=== PATIENT | male | born 1935 | race African-American/Black ===

== ENCOUNTER 2017-06-20 19:50 | Inpatient (IN) | payer MEDICARE ==
[2017-06-20] MEDS ORDERED: Lorazepam 2 MG/ML VIAL ONE (20:21)
[2017-06-20] MEDS ORDERED: Acetaminophen 325 MG Suppository ONE (21:25)
[2017-06-20] MEDS ORDERED: Acetaminophen 500 MG TAB ONE (21:25)
[2017-06-20] MEDS ORDERED: Sodium Chloride 0.9% 1,000 ML IV SCH (23:21)
[2017-06-21] MEDS ORDERED: Diazepam 5 MG TAB PO PRN (02:56)
[2017-06-21] MEDS ORDERED: Ondansetron HCl/PF 4 MG/2 ML Vial IVP PRN (03:02)
[2017-06-21] MEDS: Sodium Chloride 0.9% 1,000 ML IV SCH ×3 (03:12→21:31)
[2017-06-21] MEDS ORDERED: Dextrose 5% in Water 1,000 ML IV PRN (03:48)
[2017-06-21] MEDS ORDERED: Dextrose 50% Abboject 50 ML SYRINGE SLOW IVP PRN (03:48)
[2017-06-21] MEDS ORDERED: Acetaminophen 650 MG Suppository PR PRN (03:49)
[2017-06-21] MEDS ORDERED: Sodium Chloride 0.9% 500 ML IV SCH (04:00)
[2017-06-21] MEDS: Ampicillin/Sulbactam 1.5 GM in Sodium Chloride 0.9% 100 ML IVPB SCH ×4 (04:25→21:20)
[2017-06-21 04:38] LABS: Anion Gap 12 mmol/L (10-20); BUN (Urea Nitrogen) 13 mg/dL (8.4-25.7); Calc. Creatinine Clearance 71 mL/min (70-130); Carbon Dioxide 26 mmol/L (23-31); Cardiac Risk 3.5 (Less than 4.5); Chloride 102 mmol/L (98-107); Cholesterol 154 mg/dl (< 200 Desired); Estimated GFR-MDRD 90; Glucose 145 mg/dL (83-110); HDL Cholesterol 44 mg/dL (>60 Neg Risk); LDL Cholesterol, Calculated 96 mg/dL; Potassium 3.8 mmol/L (3.5-5.1); Sodium 136 mmol/L (136-145); Triglycerides 70 mg/dL (Less than 150)
[2017-06-21 04:39] LABS: Hemoglobin 13.4 g/dL (14.0-18.0); Lymphocytes 52 % (21-51); MDiff Complete? YES; Mean Corpuscular HGB CONC 32.2 g/dL (32.0-36.0); Mean Corpuscular Hemoglobin 26.6 pg (27.0-31.0); Mean Corpuscular Volume 82.5 fl (80.0-94.0); Mean Platelet Volume 9.8 fL (7.4-10.4); Monocytes 2 % (0-10); Neutrophil 46 % (42-75); PLT Morphology Comment Appears Adequate; Platelet Count 127 thou/uL (130-400); RBC Distribution Width 13.4 % (11.5-14.5); Red Blood Cell (RBC) Count 5.04 mill/uL (4.70-6.10); White Blood Cell (WBC) Count 11.8 thou/uL (4.8-10.8)
--- NOTE | 2017-06-21 05:17 | HP ---
PRIMARY CARE PHYSICIAN: Alexis Hernandez. CHIEF COMPLAINT: Left-sided weakness. HISTORY OF PRESENT ILLNESS: The patient is an 82-year-old male with past medical history of hyperten iwona, coronary artery disease, who was found to have some left-sided facial droop and left-sided weak ness earlier on the . The patient's also noticed that the patient was very confused. The p bradly was taken to [facility] at that time since he was in the window and his NIH score was 6 , him and his family were offered TPA. The patient's refused TPA, stated that due to the side e ffects, she denied the use of TPA. Patient was then transferred to our facility for further evaluati on. The patient also had a CT of the head at [place], which did not indicate any acute abnormalitie s, only indicated chronic small vessel ischemia. PAST MEDICAL HISTORY: 1. History of diabetes type 2, ID in 1994, status post CABG. 2. Hypertension. 3. Hyperlipidemia. PAST SURGICAL HISTORY: The patient had a bypass 4-vessel in 1994. SOCIAL HISTORY: He drinks socially and smokes cigars per . ALLERGIES: The patient has no known drug allergies. MEDICATIONS: Are as the following: The patient takes aspirin 81 mg daily, Valium 5 mg p.o. p.r.n., glyburide 5 mg p.o. b.i.d., lisinopril 40 mg daily, metformin 500 mg p.o. b.i.d., metoprolol 50 mg b. i.d., Zocor 20 mg daily, terazosin 10 mg at bedtime, tramadol 50 mg p.o. p.r.n. REVIEW OF SYSTEMS: Except for the ones mentioned in the H and P. The following complete review of systems was negative, unless otherwise mentioned in the HPI or below : Constitutional: Weight loss or gain, ability to conduct usual activities. Skin: Rash, itching. Eyes: Double vision, pain. ENT/Mouth: Nose bleeding, neck stiffness, pain, tenderness. Cardiovascular: Palpitations, dyspnea on exertion, orthopnea. Respiratory: Shortness of breath, wheezing, cough, hemoptysis, fever or night sweats. Gastrointestinal: Poor appetite, abdominal pain, heartburn, nausea, vomiting, constipation, or diarr hea. Genitourinary: Urgency, frequency, dysuria, nocturia. Musculoskeletal: Pain, swelling. Neurologic/Psychiatric: Anxiety, depression. Allergy/Immunologic: Skin rash, bleeding tendency. PHYSICAL EXAMINATION: VITAL SIGNS: Temperature of 99.8, heart rate of 116, blood pressure of 188/90, 98% on room air. GENERAL: The patient is awake, alert, oriented x1. CARDIOVASCULAR: The patient is tachycardic, but sinus. No murmurs noted. RESPIRATORY: Clear to auscultation. No rhonchi, wheezes noted. ABDOMEN: Soft, nontender. Bowel sounds are present x2. NEUROLOGIC: Patient does have a left-sided facial droop. He does have some weakness of the left upp er extremity and left lower extremity. Sensation is intact on the right, mildly decreased on the lef t side. Left upper and left lower extremity, patient has mild aphasia also, unable to do cerebellum test on patient. LABORATORY DATA: WBC of 8.6, hemoglobin of 13.5, hematocrit of 41.3, platelets of 119. Chemistries: Sodium of 142, potassium of 3.9, bicarbonate of 25, BUN of 16, creatinine of 0.98. Troponin x1 was negative. We will trend troponins. ASSESSMENT AND PLAN: The patient is a very pleasant 82-year-old male who was admitted to the [facility] for left-sided weakness. 1. Stroke. The patient does have significant left-sided weakness. The patient's refused TPA. Patient currently on tele on stroke unit. Current NIH is 4. We will consult Neurology. We will ge t echocardiogram, carotid ultrasound, MRI brain. We will also check hemoglobin A1c and lipid panel. The patient is on aspirin 81 mg, may need Plavix 75 mg daily. However, the patient currently is n.p .o., needs a swallow evaluation, so we will do aspirin per rectal. Once patient passes swallow evalu ation, I may consider putting patient on Plavix. Also, patient is on pravastatin. 2. Hypertension. Mild slightly elevated blood pressure. We will continue to monitor. We will star t the patient's home medications. 3. Diabetes type 2. We will check Accu-Cheks a.c. and at bedtime and continue to monitor and hold g lyburide and metformin for now.
[2017-06-21 07:02] LABS: Bilirubin Negative (Negative); Blood, Urine Trace (Negative); Clarity CLEAR (Clear); Glucose, Urine (Dipstick) Negative (Negative); Leukocyte Negative (Negative); Nitrite Negative (Negative); Protein, Urine (Dipstick) 100 mg/dL (Neg-Trace); Specific Gravity, Urine 1.018 (1.002-1.036); Urobilinogen 0.2 mg/dL (0.2-1.0)
[2017-06-21 07:03] LABS: Bacteria/HPF None Seen HPF (None Seen); Hyaline Casts/LPF 0-3 HYALINE CAST LPF (0-3 Hyaline); Squamous Epithelial None Seen HPF (0-3); WBC/HPF 0-3 HPF (0-3)
[2017-06-21] MEDS ORDERED: hydrALAZINE 20 MG/ML VIAL SLOW IVP PRN (08:22)
[2017-06-21] MEDS ORDERED: Aspirin 300 MG Suppository PR SCH (09:00)
--- NOTE | 2017-06-21 09:50 | RAD ---
PORTABLE CHEST; Date: 06/21/17 PROVIDED CLINICAL HISTORY: Fever. FINDINGS: No comparisons. The cardiac silhouette appears enlarged. Median sternotomy changes, vascular calcification, and CABG changes are noted. There is no focal consolidation, pleural fluid, or pneumothorax apparent. IMPRESSION: Cardiomegaly without evidence for an acute cardiopulmonary process. POS: [facility]
--- NOTE | 2017-06-21 10:12 | ULT ---
CAROTID ULTRASOUND: Date: 06/21/17 HISTORY: Stroke. COMPARISON: None. TECHNIQUE: Agrawal scale, color flow, Doppler imaging, and spectral waveform analysis performed of the carotid and vertebral arteries. FINDINGS: RIGHT CAROTID: Calcified plaque in the mid right internal carotid artery. Peak systolic velocity of the common carot id artery is 65.2 cm/second. Peak systolic velocity of the internal carotid artery is 44.3 cm/second. Systolic ICA/CCA ratio is 0.68. LEFT CAROTID: No significant atherosclerotic disease. Peak systolic velocity of the common carotid artery is 81.4 c m/second. Peak systolic velocity of the internal carotid artery is 60.4 cm/second. Systolic ICA/CCA r atio is 0.74. Antegrade flow in bilateral vertebral arteries. IMPRESSION: No sonographic evidence of hemodynamically significant stenosis. POS: [facility]
--- NOTE | 2017-06-21 10:57 | CON ---
DATE OF CONSULTATION: 06/21/2017. NEUROLOGY CONSULTATION CONSULTING PHYSICIAN: Hospitalist Service. IMPRESSION: 1. Transient ischemic attack with resolving left-sided weakness. 2. Diabetes. 3. Hypertension. 4. Aspirin failure. PLAN: Add Plavix. HISTORY OF PRESENT ILLNESS: Mr. Muñiz is an 82-year-old man who was brought to [facility] yesterday with complaints of left-sided weakness and slurred speech. The symptoms were fairly mil d and they refused TPA and was transferred here for care. His initial CT scan did not show any acute hemorrhage. His carotid ultrasound does not show any extracranial stenosis. His lab work including a CBC and serum chemistries were unremarkable other than a blood sugar of 145. His vital signs have been stable with an initial fever of 102.1 on admission and mild hypertension with diastolics runnin g between 85 and 89. He denies any past history of stroke or TIA. ALLERGIES: None. MEDICATION LIST: Reviewed. SOCIAL HISTORY: No tobacco or alcohol use. FAMILY HISTORY: Noncontributory. REVIEW OF SYSTEMS: Positive for complaints of mild headache, but no nausea, vomiting, abdominal pain , chest pain or shortness of breath. PHYSICAL EXAMINATION: GENERAL: He is a well-nourished elderly man, in no acute distress. HEENT: Pupils are equal and reactive. Conjunctivae clear. Oropharynx clear. NECK: Supple. EXTREMITIES: No cyanosis or edema. NEUROLOGIC: He is alert and cooperative. His speech is fluent and clear. Cranial nerves II-XII are intact. Motor exam showed symmetric strength. There was no fix or drift. Gait was not tested. No abnormal movements were seen. LABORATORY AND IMAGING STUDIES: Reviewed. SUMMARY: This 82-year-old gentleman presented with transient left-sided weakness suggestive of proba ble small vessel ischemic disease. Given he was on aspirin and reportedly on a statin as well, addin g Plavix would be the appropriate next step. His workup is nearly complete. I would be happy to fol low up with him as an outpatient.
[2017-06-21] MEDS: Lisinopril 20 MG TAB PO SCH (11:35)
[2017-06-21] MEDS: Acetaminophen 325 MG TAB PO PRN (11:35)
[2017-06-21] MEDS: Metoprolol Tartrate 50 MG TAB PO SCH ×2 (11:36→21:20)
--- NOTE | 2017-06-21 11:55 | MRI ---
BRAIN MRI WITHOUT CONTRAST: Date: 06/21/17 HISTORY: Evaluate for CVA. COMPARISON: None. TECHNIQUE: Brain MRI is performed without intravenous Gadolinium administration. Multisequential, multiplanar im aging is performed. FINDINGS: No hemorrhage on the axial gradient echo sequence. No parenchymal mass, mass effect, or midline shift . Brain volume is age-appropriate. Cortical mora-white matter differentiation is preserved. Ventricle s and sulci are patent and symmetric. Central arterial flow-voids are maintained. Absent restricted d iffusion. T2 and FLAIR white matter hyperintensities due to chronic small vessel ischemic changes are noted. Calvarium has a normal marrow signal intensity. Midline brain parenchymal structures are unre markable. Left sphenoid sinus disease is noted. IMPRESSION: Absent restricted diffusion. No acute infarct. POS: [facility]
[2017-06-21] MEDS ORDERED: Clopidogrel Bisulfate 75 MG TAB PO SCH (13:00)
--- NOTE | 2017-06-21 13:51 | PDOC.EVN ---
Event Note - Event Note Event Note: Pt seen and examined. chart reviewed. Care discussed w pt and family at bedside. feels better. denies any specific weakness,speech issues. Carotid Us and MRI brain WNL. neurology recs noted. Add plavix. cont ASA,statin. Ot/PT. OP rehab Vs . yecenia DC next am if stable. Fever yecenia due to stroke.Blood Cx obtained.CXR clear.UA clear. no indication for antibiotics but strarted on empiric ABx for coverage for Aspiration PNA. monitor BP. Add prn hydralazine w parameters for permissive HTN
[2017-06-21] MEDS: Simvastatin 20 MG TAB PO SCH (21:19)
[2017-06-22] MEDS: Ampicillin/Sulbactam 1.5 GM in Sodium Chloride 0.9% 100 ML IVPB SCH (04:14)
[2017-06-22] MEDS ORDERED: traMADol HCl 50 MG TAB PO PRN (09:08)
[2017-06-22] MEDS ORDERED: cloNIDine 0.1 MG TAB PO PRN (09:09)
[2017-06-22] MEDS: Aspirin 325 MG TAB PO SCH (09:19)
[2017-06-22] MEDS: Clopidogrel Bisulfate 75 MG TAB PO SCH (09:20)
[2017-06-22] MEDS: Metoprolol Tartrate 50 MG TAB PO SCH ×2 (09:20→20:25)
[2017-06-22] MEDS: Lisinopril 20 MG TAB PO SCH (09:20)
[2017-06-22] MEDS: Acetaminophen 325 MG TAB PO PRN (09:20)
[2017-06-22] MEDS ORDERED: hydrALAZINE 20 MG/ML VIAL SLOW IVP PRN (11:19)
[2017-06-22] MEDS ORDERED: NIFEdipine XL 30 MG TAB PO SCH (11:30)
--- NOTE | 2017-06-22 14:15 | PDOC.PN ---
- Subjective Encounter Start Date: 06/22/17 Encounter Start Time: 14:13 Subjective: feels much better.walked w PT w/o any deficits -: no speech/swollowing issues. - Objective Resuscitation Status: Resuscitation Status FULL:Full Resuscitation MAR Reviewed: Yes Vital Signs & Weight: Vital Signs (12 hours) Temp Pulse Pulse Pulse Resp BP BP 06/22/17 11:46 65 186/91 H 06/22/17 11:33 98.7 F 65 15 06/22/17 09:20 181/88 H 06/22/17 08:00 97.9 F 97 15 06/22/17 07:40 97.9 F 97 15 06/22/17 07:32 88 77 166/90 H 06/22/17 05:35 06/22/17 04:42 86 194/91 H 06/22/17 04:00 98.2 F 86 16 BP BP BP Pulse Ox 06/22/17 11:46 06/22/17 11:33 186/91 H 98 06/22/17 09:20 06/22/17 08:00 95 06/22/17 07:40 181/88 H 95 06/22/17 07:32 183/92 H 06/22/17 05:35 174/83 H 06/22/17 04:42 06/22/17 04:00 195/94 H 95 Weight Weight 192 lb I&O: 06/21/17 06/22/17 06/23/17 06:59 06:59 06:59 Intake Total 2974 Output Total 850 Balance 2124 Result Diagrams: 06/21/17 04:10 06/21/17 04:11 Additional Labs: Accuchecks 06/22/17 06/22/17 06/21/17 10:34 05:34 21:28 POC Glucose 155 H 128 H 112 H 06/21/17 15:16 POC Glucose 101 Microbiology 06/21/17 04:10 Venous blood - Right Arm Blood Culture - Preliminary Specimen has been received and culture in progress. No Growth to date. 06/21/17 04:10 Venous blood - Left Hand Blood Culture - Preliminary Specimen has been received and culture in progress. No Growth to date. Radiology Reviewed by me: Yes (ECHO-1/3 Diastolic dysfx) Phys Exam - Physical Examination Constitutional: NAD somewhat spaced out HEENT: PERRLA, moist MMs, sclera anicteric, oral pharynx no lesions, 2+ tonsils Neck: no nodes, no JVD, supple, full ROM Respiratory: no wheezing, no rales, no rhonchi, clear to auscultation bilateral Cardiovascular: RRR, no significant murmur, no rub, gallop, irregular Gastrointestinal: soft, non-tender, no distention, positive bowel sounds Musculoskeletal: no edema, pulses present Neurological: non-focal, normal sensation, moves all 4 limbs Psychiatric: normal affect, A&O x 3 Skin: no rash Dx/Plan (1) TIA (transient ischemic attack) Status: Acute (2) Uncontrolled hypertension Code(s): I10 - ESSENTIAL (PRIMARY) HYPERTENSION Status: Acute (3) CAD (coronary artery disease) Code(s): I25.10 - ATHSCL HEART DISEASE OF [place] CORONARY ARTERY W/O ANG PCTRS Status: Chronic (4) HTN (hypertension) Code(s): I10 - ESSENTIAL (PRIMARY) HYPERTENSION Status: Chronic (5) DM2 (diabetes mellitus, type 2) Status: Chronic - Plan PT/OT, 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 add procardia,prn meds.monitor. -: HH on DC as he is having some balance issues when walking -: DC in am if BP improves * . Review of Systems - Review of Systems Constitutional: negative: fever, chills, sweats, weakness, malaise, other Eyes: negative: Pain, Vision Change, Conjunctivae Inflammation, Eyelid Inflammation, Redness, Other ENT: negative: Ear Pain, Ear Discharge, Nose Pain, Nose Discharge, Nose Congestion, Mouth Pain, Mouth Swelling, Throat Pain, Throat Swelling, Other Respiratory: negative: Cough, Dry, Shortness of Breath, Hemoptysis, SOB with Excertion, Pleuritic Pain, Sputum, Wheezing Cardiovascular: negative: chest pain, palpitations, orthopnea, paroxysmal nocturnal dyspnea, edema, light headedness, other Gastrointestinal: negative: Nausea, Vomiting, Abdominal Pain, Diarrhea, Constipation, Melena, Hematochezia, Other Genitourinary: negative: Dysuria, Frequency, Incontinence, Hematuria, Retention , Other Musculoskeletal: negative: Neck Pain, Shoulder Pain, Arm Pain, Back Pain, Hand Pain, Leg Pain, Foot Pain, Other Skin: negative: Rash, Lesions, Keven, Bruising, Other Neurological: negative: Weakness, Numbness, Incoordination, Change in Speech, Confusion, Seizures, Other - Medications/Allergies Allergies/Adverse Reactions: Allergies Allergy/AdvReac Type Severity Reaction Status Date / Time No Known Allergies Allergy Verified 06/20/17 23:36 Medications: Current Medications Acetaminophen (Tylenol) 650 mg PO Q6H PRN PRN Reason: Headache/Fever or Pain Last Admin: 06/22/17 09:20 Dose: 650 mg Aspirin (Aspirin) 325 mg PO DAILY [facility] Last Admin: 06/22/17 09:19 Dose: 325 mg Clonidine (Catapres) 0.1 mg PO Q4H PRN PRN Reason: SBP>160 Clopidogrel Bisulfate (Plavix) 75 mg PO DAILY [facility] Last Admin: 06/22/17 09:20 Dose: 75 mg Dextrose/Water (Dextrose 50%) 25 gm SLOW IVP PRN PRN PRN Reason: Hypoglycemia Diazepam (Valium) 5 mg PO DAILYPRN PRN PRN Reason: Anxiety Glucagon (Glucagon) 1 mg IM PRN PRN PRN Reason: Hypoglycemia Glyburide (Diabeta) 5 mg PO BID-AC [facility] Hydralazine HCl (Apresoline) 10 mg SLOW IVP Q4H PRN PRN Reason: SBP>170 Dextrose/Water (D5w) 1,000 mls @ 0 mls/hr IV .Q0M PRN; As Directed PRN Reason: Hypoglycemia Lisinopril (Zestril) 40 mg PO DAILY [facility] Last Admin: 06/22/17 09:20 Dose: 40 mg Metformin HCl (Glucophage) 500 mg PO BID-[facility] Metoprolol Tartrate (Lopressor) 50 mg PO BID [facility] Last Admin: 06/22/17 09:20 Dose: 50 mg Nifedipine (Procardia Xl) 30 mg PO DAILY [facility] Ondansetron HCl (Zofran) 4 mg IVP Q6H PRN PRN Reason: Nausea/Vomiting Simvastatin (Zocor) 20 mg PO HS [facility] Last Admin: 06/21/17 21:19 Dose: 20 mg Sodium Chloride (Flush - Normal Saline) 10 ml IVF Q12HR [facility] Last Admin: 06/22/17 09:21 Dose: Not Given Sodium Chloride (Flush - Normal Saline) 10 ml IVF PRN PRN PRN Reason: Saline Flush Terazosin HCl (Hytrin) 10 mg PO HS IZZY Tramadol HCl (Ultram) 50 mg PO Q6H PRN PRN Reason: Moderate to Severe Pain (6-10)
[2017-06-22] MEDS: glyBURIDE 5 MG TAB PO SCH (16:09)
[2017-06-22] MEDS: metFORMIN 500 MG TAB PO SCH (16:09)
[2017-06-22] MEDS: Simvastatin 20 MG TAB PO SCH (20:25)
[2017-06-22] MEDS ORDERED: Terazosin HCl 5 MG CAP PO SCH (21:00)
[2017-06-23] MEDS: metFORMIN 500 MG TAB PO SCH (08:18)
[2017-06-23] MEDS: glyBURIDE 5 MG TAB PO SCH (08:19)
[2017-06-23] MEDS: Aspirin 325 MG TAB PO SCH (08:19)
[2017-06-23] MEDS: Clopidogrel Bisulfate 75 MG TAB PO SCH (08:19)
[2017-06-23] MEDS: Metoprolol Tartrate 50 MG TAB PO SCH (08:19)
[2017-06-23] MEDS: Lisinopril 20 MG TAB PO SCH (08:20)
[2017-06-23] MEDS ORDERED: NIFEdipine XL 30 MG TAB PO SCH (09:00)
[2017-06-23 11:51] VITALS: BP 137/74; TEMP 98.1
--- NOTE | 2017-06-23 14:54 | DIS ---
DATE OF DISCHARGE: 06/23/2017 PRIMARY CARE PHYSICIAN: Alexus Wilson at [facility]. DISCHARGE DISPOSITION: Home with [facility]. DISCHARGE DIAGNOSES: 1. Transient ischemic attacks. 2. Hypertension with hypertensive urgency while in the hospital. 3. History of coronary artery disease. 4. Essential hypertension. 5. Dyslipidemia. 6. Diabetes mellitus type 2. DISCHARGE MEDICATIONS: New medications Zocor has been increased to 40 mg daily from 20 mg daily, nif edipine 30 mg daily, Plavix 75 mg daily. Resume home medications as follows; aspirin 81 mg daily, Va lium 5 mg p.o. p.r.n., metoprolol tartrate 50 mg p.o. b.i.d., Zestril 40 mg daily, metformin 500 mg p .o. b.i.d., glyburide 5 mg p.o. b.i.d., terazosin 10 mg daily, tramadol as needed. PROCEDURES DONE IN THE HOSPITAL: 1. Carotid Doppler ultrasound, which is negative for any hemodynamically significant stenosis. 2. MRI of the brain which does not show any acute infarction. 3. Transthoracic echocardiogram which is negative for any evidence of valvular abnormality. EF of 6 0% to 65%, grade I/III diastolic dysfunction. CONSULTATIONS INHOUSE: Neurology, Dr. Sheldon Adair HISTORY OF PRESENT ILLNESS: Mr. Muñiz is an 82-year-old male who was brought in for complaints of le ft-sided weakness and slurred speech. He was within the time frame of the t-PA, but because his symp toms were minor and they were receding, the family decided to forego the t-PA administration. He und erwent a CT head in the [place] [facility] which was negative for any acute abnormalities. He w as transferred here and admitted to stroke floor for further workup and rule out CVA. Please see adm ission history and physical for further details. HOSPITAL COURSE: The patient underwent stroke workup including carotid Doppler ultrasound, MRI of th e brain and echocardiogram and Neurology consultation. Imaging studies were normal, but because of h is symptoms, it was thought that he most likely has suffered a TIA. His Zocor was increased. He was continued on aspirin and at the recommendation of Neurology, Dr. Adair, Plavix was added to his re gimen. It was started here and tolerated very well. His discharge was somewhat delayed by 1 day because of uncontrolled hypertension. He was continued o n his home medication and Procardia was added which he tolerated very well with excellent results for his blood pressure. As of this morning, he is back to his baseline. He has been evaluated by speech therapist, physical therapist and occupational therapist and has no need for rehab. Home Health has been arranged for id m for prison and for various other things with the help of the case management. He was seen and examined prior to discharge and discharge plan was discussed with the patient and his who v erbalized understanding. PHYSICAL EXAMINATION: VITAL SIGNS: This morning temperature 98.1, pulse of 70, respirations 18, saturating 95% on room air , blood pressure 137/74. GENERAL: No acute distress, sitting up on the side of the bed and walking in the hallways. NEUROLOGICAL: Nonfocal. CHEST: Clear to auscultation bilaterally. CARDIOVASCULAR: Rate and rhythm regular without any murmur, rubs or gallops. LABORATORY DATA: His lipid panel was unremarkable. Hemoglobin A1c 7.0. He will follow up with primary care physician as well as neurologist in the outpatient setting. Total time spent in the discharge of this patient was 33 minutes including [id number] interaction.
== END 2017-06-23 12:35 | disposition home health service (06) | DRG 69 ==
LOC: ERS 19:50 → 2SE 21:40
PROVIDERS: ADMIT Internal Medicine; ATTEND Internal Medicine
DX: G45.9 Transient cerebral ischemic attack, unspecified (principal); E11.9 Type 2 diabetes mellitus without complications; Z95.1 Presence of aortocoronary bypass graft; R47.01 Aphasia; I16.0 Hypertensive urgency; I25.10 Atherosclerotic heart disease of native coronary artery without angina pectoris; I10 Essential (primary) hypertension; E78.5 Hyperlipidemia, unspecified; R47.81 Slurred speech; Z79.82 Long term (current) use of aspirin; R53.1 Weakness; R26.89 Other abnormalities of gait and mobility; R29.703 NIHSS score 3; R29.810 Facial weakness; I25.2 Old myocardial infarction; F17.210 Nicotine dependence, cigarettes, uncomplicated
CPT/HCPCS: 36415; 36416; 70551; 71045; 80048; 80061; 81001; 83036; 84484; 85025; 87040; 93306; 93880; 96374; A4216; G8978-GP-CI; G8979-GP-CI; G8980-GP-CI; G8987-GO-CI; G8988-GO-CI; G8989-GO-CI; G9168-GN-CK; G9169-GN-CI; J0295; J0360; J2060; J7050

== ENCOUNTER 2017-11-20 16:26 | Inpatient (IN) | payer MEDICARE ==
[2017-11-20] MEDS ORDERED: Acetaminophen 325 MG TAB ONE (16:47)
[2017-11-20 18:08] LABS: Troponin I 0.052 ng/mL (< 0.028)
[2017-11-20] MEDS ORDERED: Acetaminophen 500 MG TAB ONE (20:06)
[2017-11-20 21:29] LABS: Troponin I 0.037 ng/mL (< 0.028)
[2017-11-20 23:52] LABS: Troponin I 0.053 ng/mL (< 0.028)
[2017-11-21 00:14] VITALS: BMI 27.8
[2017-11-21] MEDS ORDERED: Diazepam 5 MG TAB PO PRN (01:19)
[2017-11-21] MEDS ORDERED: traMADol HCl 50 MG TAB PO PRN (01:19)
[2017-11-21] MEDS ORDERED: hydrALAZINE 20 MG/ML VIAL SLOW IVP PRN (01:21)
[2017-11-21] MEDS ORDERED: Calcium Carbonate 500 MG ChewTAB PO PRN (01:21)
[2017-11-21] MEDS ORDERED: Senokot 8.6 MG TAB PO PRN (01:21)
[2017-11-21] MEDS ORDERED: Ondansetron HCl/PF 4 MG/2 ML Vial IVP PRN (01:21)
[2017-11-21] MEDS ORDERED: Acetaminophen 325 MG TAB PO PRN (01:21)
[2017-11-21] MEDS ORDERED: Bisacodyl 5 MG TAB PO PRN (01:21)
[2017-11-21 02:47] LABS: Troponin I 0.045 ng/mL (< 0.028)
[2017-11-21 02:51] LABS: Anion Gap 16 mmol/L (10-20); BUN (Urea Nitrogen) 20 mg/dL (8.4-25.7); Calc. Creatinine Clearance 52 mL/min (70-130); Calcium 8.7 mg/dL (7.8-10.44); Carbon Dioxide 23 mmol/L (23-31); Cardiac Risk 3.3 (Less than 4.5); Chloride 103 mmol/L (98-107); Cholesterol 102 mg/dl (< 200 Desired); Estimated GFR-MDRD 74; Glucose 134 mg/dL (83-110); HDL Cholesterol 31 mg/dL (>60 Neg Risk); LDL Cholesterol, Calculated 55 mg/dL; Sodium 139 mmol/L (136-145); Triglycerides 79 mg/dL (Less than 150)
[2017-11-21 03:09] LABS: Band 1 % (5-11); Hemoglobin 12.5 g/dL (14.0-18.0); Hypochromia SLIGHT = 6-15 cells (100X) (0-5/hpf); Lymphocytes 59 % (21-51); MDiff Complete? YES; Mean Corpuscular HGB CONC 33.2 g/dL (32.0-36.0); Mean Corpuscular Hemoglobin 27.9 pg (27.0-31.0); Mean Corpuscular Volume 83.9 fL (78.0-98.0); Neutrophil 40 % (42-75); PLT Morphology Comment Appears Decreased; Platelet Count 111 thou/uL (130-400); RBC Distribution Width 12.4 % (11.5-14.5); Red Blood Cell (RBC) Count 4.47 mill/uL (4.70-6.10); White Blood Cell (WBC) Count 11.9 thou/uL (4.8-10.8)
--- NOTE | 2017-11-21 05:16 | PDOC.EVN ---
Event Note - Event Note Event Note: h&p [id number]
--- NOTE | 2017-11-21 05:50 | HP ---
PRIMARY CARE PHYSICIAN: Uli Schmidt. CHIEF COMPLAINT: Right-sided headache and neck pain. HISTORY OF PRESENT ILLNESS: This is an 82-year-old male with a prior history of NV, type 2 diabetes, CABG x4 vessels, and hypertension who initially presented with a chief complaint of right-sided headache with neck pain. He was initially seen at an outside hospital from [place] and was transferred to our facility due to the fact that on their evaluation, the patient had indeterminate troponin. At the time of my evaluation, the patient denies any headache, denies any vision changes, denies any neck pain and denies any chest pain or palpitations. He in fact is feeling okay and has no complaints whatsoever. REVIEW OF SYSTEMS: As per HPI. Constitutional: Patient denies any fevers, chills, significant weight gain, or loss. HEENT: Negative as per above. Cardiovascular: No chest pain, no dyspnea on exertion. No palpitations. Respiratory: No shortness of breath, cough, congestion, or recent upper respiratory illness. Gastrointestinal: Denies any nausea, vomiting, abdominal pain issues with diarrhea or constipation. Musculoskeletal denying any new myalgias or arthralgias. Genitourinary: No dysuria, changes in urinary quality or quantity. Remainder of the review of systems otherwise negative. PAST MEDICAL HISTORY: As per above, 1. Significant for myocardial infarction, status post CABG x4 vessels in 1994. 2. Type 2 diabetes. 3. Hypertension. 4. Obesity. 5. Anxiety. HOME MEDICATIONS: Per the EMR, the patient's verified list includes aspirin 81 mg p.o. daily, lisinopril 40 mg mg p.o. daily, diazepam 5 mg p.o. p.r.n., tramadol 50 mg p.o. p.r.n., metformin 500 mg p.o. b.i.d., glyburide 5 mg p.o. b.i.d., terazosin 10 mg p.o. at bedtime, simvastatin 40 mg p.o. at bedtime, nifedipine 30 mg p.o. daily, metoprolol tartrate 50 mg p.o. daily. ALLERGIES: No known drug allergies. FAMILY HISTORY: Patient does not report a family history of stroke, although I believe that there is a family history of diabetes. SOCIAL HISTORY: Patient is an active tobacco user. Denies any illicit drug use. He is and has intermittent alcohol use 1-2 times a month. PHYSICAL EXAMINATION: VITAL SIGNS: Temperature 96.9, pulse of 73, respirations 16, satting 93% on room air with blood pressure of 137/45. GENERAL: The patient is awake, alert, conversant, in no acute distress, lying in the hospital bed watching TV. HEENT: Normocephalic, atraumatic. Equal ocular motions are intact. Slightly dry mucous membranes. CARDIOVASCULAR: S1, S2. No murmurs, rubs, or gallops. Pulses 2+ in bilateral upper extremities. RESPIRATORY: Reasonable air movement. No conversational dyspnea. No wheezes, rales, or rhonchi. Grossly clear to auscultation. ABDOMEN: Positive bowel sounds, soft, nontender to palpation. MUSCULOSKELETAL: Moving all 4 extremities independently. IMAGIN. On 11/20/2017, CT of the brain impression "no acute intracranial finding." 2. On 11/20/2017, chest x-ray, impression "mild cardiomegaly with no change since May." LABORATORY DATA AND IMAGING: From earlier this morning, WBC 11.9, hemoglobin 12.5, hematocrit 37.5, platelets 111. Sodium 139, potassium 3.0, chloride 103, bicarbonate 23, BUN 20, creatinine 1.14, glucose 134, calcium 8.7. Troponin were initial 0.052 followed by 0.053, followed by 0.045, triglycerides 79, cholesterol 102, LDL 55, HDL 31. ASSESSMENT AND PLAN: An 82-year-old male presenting with right-sided headache and neck pain that is currently resolved. 1. Right-sided headache and neck pain. I suspect that is likely musculoskeletal with a tension headache. Both of these have been resolved. We will continue to closely monitor patient's neurological status. He is currently already ordered for an MRI and Neurology consultation. 2. Elevated troponin with a known history of coronary artery disease. Question of whether or not this represents demand ischemia. We will also check an echocardiogram. Cardiology consultation has been requested as well secondary to the patients known complicated cardiac history. 3. Hypertension, currently stable. Continue home regimen. 4. Type 2 diabetes, currently stable. Continue home regimen. 5. Hyperlipidemia, currently stable. Continue home regimen. 6. Diet: Cardiac diabetic. 7. Activity: As tolerated. 8. Deep venous thrombosis prophylaxis: With Lovenox. 9. Hypokalemia with a potassium of 3.0, we will replete and recheck along with a serum magnesium level. MTDD
[2017-11-21 06:10] LABS: Magnesium 1.5 mg/dL (1.6-2.6)
[2017-11-21] MEDS: Lisinopril 20 MG TAB PO SCH (08:55)
[2017-11-21] MEDS: glyBURIDE 5 MG TAB PO SCH ×2 (08:55→22:54)
[2017-11-21] MEDS: NIFEdipine XL 30 MG TAB PO SCH (08:55)
[2017-11-21] MEDS: Heparin 5,000 UNITS/ML VIAL SC SCH ×3 (08:56→22:54)
[2017-11-21] MEDS: metFORMIN 500 MG TAB PO SCH ×2 (08:56→22:54)
[2017-11-21] MEDS: Metoprolol Tartrate 50 MG TAB PO SCH (08:56)
[2017-11-21] MEDS: Docusate 100 MG CAP PO SCH ×2 (08:56→22:54)
--- NOTE | 2017-11-21 12:35 | MRI ---
MRI BRAIN WITHOUT CONTRAST: HISTORY: TIA. FINDINGS: Comparison is made with the exam of 06/21/17. Correlation is made with the CT brain from the previous day. No restricted diffusion is seen. Changes of cortical atrophy and chronic small vessel ischemic disea se are redemonstrated. No evidence of infarct, hemorrhage, midline shift, or abnormal extraaxial flu id collections is seen. The ventricular size is stable and the basilar cisterns patent. The visuali zed paranasal sinuses and mastoid air cells are well aerated. IMPRESSION: Stable chronic changes. No evidence of acute intracranial process. POS: [facility]
--- NOTE | 2017-11-21 14:24 | PDOC.PN ---
- Subjective Encounter Start Date: 11/21/17 Encounter Start Time: 13:00 Patient is seen today, alert and oriented. No chest pain. Has elevated tropinins , waiitng on Echo, and cardiology and neurology evalaution. - Objective MAR Reviewed: Yes Vital Signs & Weight: Vital Signs (12 hours) Temp Pulse Resp BP Pulse Ox 11/21/17 11:58 98.2 F 63 16 142/78 H 96 11/21/17 08:55 67 11/21/17 08:00 97.7 F 67 12 176/85 H 94 L 11/21/17 04:00 96.9 F L 73 16 137/85 93 L Weight Weight 167 lb 6 oz I&O: 11/20/17 11/21/17 11/22/17 06:59 06:59 06:59 Intake Total 480 Balance 480 Result Diagrams: 11/21/17 01:51 11/21/17 01:51 Additional Labs: Accuchecks 11/21/17 11/20/17 05:44 23:30 POC Glucose 144 H 129 H Radiology Reviewed by me: Yes Phys Exam - Physical Examination HEENT: PERRLA, moist MMs Neck: no nodes, no JVD Respiratory: no wheezing, no rales Cardiovascular: RRR, no significant murmur Gastrointestinal: soft, non-tender Musculoskeletal: no edema, pulses present Neurological: non-focal, normal sensation Lymphatic: no nodes Dx/Plan (1) TIA (transient ischemic attack) Status: Acute Comment: Severe headache, but no numbnes sor weaknes of arms or legs. MRI neg for stroke. (2) Uncontrolled hypertension Code(s): I10 - ESSENTIAL (PRIMARY) HYPERTENSION Status: Acute Comment: Likely from headache, Continue home meds, Pending Echo. (3) CAD (coronary artery disease) Code(s): I25.10 - ATHSCL HEART DISEASE OF [place] CORONARY ARTERY W/O ANG PCTRS Status: Chronic Comment: contoiniue Aspirin., BB, No chest pain but elevated troponins. Wait for echo. (4) DM2 (diabetes mellitus, type 2) Status: Chronic Comment: Well controlled. Continue SSI. (5) HTN (hypertension) Code(s): I10 - ESSENTIAL (PRIMARY) HYPERTENSION Status: Chronic (6) NSTEMI (non-ST elevated myocardial infarction) Code(s): I21.4 - NON-ST ELEVATION (NSTEMI) MYOCARDIAL INFARCTION Status: Acute Comment: Elevated Trop, wiaintg on cardilogy, mayt get Cath? RADHA smith. 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 Review of Systems - Review of Systems Eyes: negative: Pain, Vision Change, Conjunctivae Inflammation, Eyelid Inflammation, Redness, Other ENT: negative: Ear Pain, Ear Discharge, Nose Pain, Nose Discharge, Nose Congestion, Mouth Pain, Mouth Swelling, Throat Pain, Throat Swelling, Other Respiratory: negative: Cough, Dry, Shortness of Breath, Hemoptysis, SOB with Excertion, Pleuritic Pain, Sputum, Wheezing Cardiovascular: negative: chest pain, palpitations, orthopnea, paroxysmal nocturnal dyspnea, edema, light headedness, other Gastrointestinal: negative: Nausea, Vomiting, Abdominal Pain, Diarrhea, Constipation, Melena, Hematochezia, Other Genitourinary: negative: Dysuria, Frequency, Incontinence, Hematuria, Retention , Other Musculoskeletal: negative: Neck Pain, Shoulder Pain, Arm Pain, Back Pain, Hand Pain, Leg Pain, Foot Pain, Other Skin: negative: Rash, Lesions, Keven, Bruising, Other - Medications/Allergies Allergies/Adverse Reactions: Allergies Allergy/AdvReac Type Severity Reaction Status Date / Time No Known Allergies Allergy Verified 06/20/17 23:36 Medications: Current Medications Acetaminophen (Tylenol) 650 mg PO Q4H PRN PRN Reason: Headache/Fever or Pain Aspirin (Aspirin Chewable) 81 mg PO DAILY [facility] Last Admin: 11/21/17 08:55 Dose: 81 mg Bisacodyl (Dulcolax) 10 mg PO DAILYPRN PRN PRN Reason: Constipation Calcium Carbonate (Tums) 1,000 mg PO Q4H PRN PRN Reason: Heartburn or Indigestion Diazepam (Valium) 5 mg PO DAILYPRN PRN PRN Reason: Anxiety Docusate Sodium (Colace) 100 mg PO BID [facility] Last Admin: 11/21/17 08:56 Dose: 100 mg Glyburide (Diabeta) 5 mg PO BID [facility] Last Admin: 11/21/17 08:55 Dose: 5 mg Heparin Sodium (Porcine) (Heparin) 5,000 units SC TID [facility] Last Admin: 11/21/17 08:56 Dose: 5,000 units Hydralazine HCl (Apresoline) 10 mg SLOW IVP Q4H PRN PRN Reason: BP > 220/110 Lisinopril (Zestril) 40 mg PO DAILY [facility] Last Admin: 11/21/17 08:55 Dose: 40 mg Metformin HCl (Glucophage) 500 mg PO BID [facility] Last Admin: 11/21/17 08:56 Dose: 500 mg Metoprolol Tartrate (Lopressor) 50 mg PO DAILY [facility] Last Admin: 11/21/17 08:56 Dose: 50 mg Nifedipine (Procardia Xl) 30 mg PO DAILY [facility] Last Admin: 11/21/17 08:55 Dose: 30 mg Ondansetron HCl (Zofran) 4 mg IVP Q6H PRN PRN Reason: Nausea/Vomiting Pneumococcal 13-Valent Conj Vacc (Prevnar) 0.5 ml IM .ONCE ONE Stop: 11/22/17 09:01 Senna (Senokot) 2 tab PO HSPRN PRN PRN Reason: Constipation Simvastatin (Zocor) 40 mg PO HS [facility] Sodium Chloride (Flush - Normal Saline) 10 ml IVF PRN PRN PRN Reason: Saline Flush Terazosin HCl (Hytrin) 10 mg PO HS [facility] Tramadol HCl (Ultram) 50 mg PO Q6H PRN PRN Reason: Pain
--- NOTE | 2017-11-21 17:16 | CON ---
DATE OF VISIT: 11/21/2017. FOLLOWUP NEUROLOGIC NOTE CONSULTING PHYSICIAN: Hospitalist Service. Mr. Muñiz presented with complaints of left-sided headache and some left leg pain. He was admitted f or further evaluation and a stroke workup was undertaken. He was seen in May for transient ischemi c attack like symptoms and his workup at that time included unremarkable MRI of the brain, unremarkab le carotid Doppler study and echocardiogram showing an ejection fraction of 65%. He reports the head ache has resolved. He had a repeat MRI this morning which has not been read out, but on my review ap pears normal. His vital signs have been stable. He has been afebrile. He appears to have a nonfoca l exam, do not see any acute neurologic issues. Continue his aspirin and Plavix as previously prescr ibed and he can be discharged home at your discretion.
[2017-11-21] MEDS: Simvastatin 40 MG TAB PO SCH (22:54)
[2017-11-21] MEDS: Terazosin HCl 5 MG CAP PO SCH (22:54)
[2017-11-22 06:03] LABS: Anion Gap 11 mmol/L (10-20); BUN (Urea Nitrogen) 18 mg/dL (8.4-25.7); Calc. Creatinine Clearance 65 mL/min (70-130); Calcium 8.6 mg/dL (7.8-10.44); Carbon Dioxide 27 mmol/L (23-31); Chloride 105 mmol/L (98-107); Estimated GFR-MDRD Greater than 90; Glucose 135 mg/dL (83-110); Potassium 3.3 mmol/L (3.5-5.1); Sodium 140 mmol/L (136-145)
[2017-11-22 06:31] LABS: Eosinophils 1 % (0-10); Hemoglobin 12.4 g/dL (14.0-18.0); Lymphocytes 63 % (21-51); MDiff Complete? YES; Mean Corpuscular HGB CONC 32.6 g/dL (32.0-36.0); Mean Corpuscular Hemoglobin 27.5 pg (27.0-31.0); Mean Corpuscular Volume 84.2 fL (78.0-98.0); Monocytes 1 % (0-10); Neutrophil 35 % (42-75); PLT Morphology Comment Appears Decreased; Platelet Count 96 thou/uL (130-400); RBC Distribution Width 12.5 % (11.5-14.5); Red Blood Cell (RBC) Count 4.51 mill/uL (4.70-6.10); White Blood Cell (WBC) Count 8.5 thou/uL (4.8-10.8)
[2017-11-22] MEDS: NIFEdipine XL 30 MG TAB PO SCH (08:54)
[2017-11-22] MEDS: Lisinopril 20 MG TAB PO SCH (08:54)
[2017-11-22] MEDS: glyBURIDE 5 MG TAB PO SCH ×2 (08:54→20:44)
[2017-11-22] MEDS: Docusate 100 MG CAP PO SCH ×2 (08:54→20:44)
[2017-11-22] MEDS: Heparin 5,000 UNITS/ML VIAL SC SCH ×2 (08:54→15:31)
[2017-11-22] MEDS: Metoprolol Tartrate 50 MG TAB PO SCH (08:55)
[2017-11-22] MEDS: metFORMIN 500 MG TAB PO SCH ×2 (08:55→20:44)
[2017-11-22] MEDS ORDERED: Prevnar 13-Val Conj/PF 0.5 ML SYRINGE IM ONE (09:00)
--- NOTE | 2017-11-22 14:14 | CON ---
DATE OF CONSULTATION: 11/22/2017 HISTORY OF PRESENT ILLNESS: Mr. Baltazar Muñiz is a pleasant 82-year-old black male who is admitted for evaluation of right-sided headache and neck pain. He was found to have very minimally elevated troponin I and Cardiology consultation was requested. In 1994, he underwent CABG x4 at [facility]. He apparently has never had a myocardial infarction in the past. With his headache and neck pain, he has undergone MRI evaluation as well as neurological consult and no specific etiology has been found. He denies any chest pain, shortness of breath, PND, orthopnea, or leg edema. PAST MEDICAL HISTORY: Hypertension, hyperlipidemia, diabetes, obesity, anxiety , coronary artery disease. MEDICATIONS: Aspirin 81 daily, lisinopril 40 mg daily, diazepam 5 mg p.r.n., tramadol 50 p.r.n., metformin 500 b.i.d., glyburide 5 mg b.i.d., terazosin 10 mg at bedtime, simvastatin 40 at bedtime, nifedipine 30 daily, metoprolol 50 daily. ALLERGIES: None. SOCIAL HISTORY: He smoked in the past, but was somewhat evasive about how much he smoked. He apparently stopped in the . He occasionally has alcohol. FAMILY HISTORY: Negative for coronary artery disease. REVIEW OF SYSTEMS: Twelve point review of systems otherwise unremarkable. PHYSICAL EXAMINATION: VITAL SIGNS: 142/86, pulse of 89. HEENT: PERRL. NECK: Supple. CHEST: Clear. CARDIAC: S1, S2 normal, without any S3, S4 or murmurs. Carotid upstrokes normal without bruits. ABDOMEN: Normal bowel sounds without tenderness, organomegaly. EXTREMITIES: Revealed no clubbing, cyanosis or edema. NEUROLOGIC: Grossly intact. LABORATORY: On the monitor, he does have a sinus arrhythmia. EKG revealed normal sinus rhythm with left atrial enlargement, right bundle branch block, possible inferior infarction, nonspecific T-wave changes. Echocardiogram revealed ejection fraction of 50%-55% with evidence of diastolic dysfunction, mild mitral regurgitation and mild tricuspid regurgitation. Hemoglobin 12.4, hematocrit 38.0, white count 8500, platelets 96,000. Sodium 140, potassium 3.3 , chloride 105, carbon dioxide 27, BUN 18, creatinine 0.91. Cholesterol 102, triglycerides 79, HDL 31, LDL 55. Mildly elevated troponin I with the highest of 0.053. IMPRESSION: 1. Headache and neck pain without any specific etiology being found. 2. History of transient ischemic attack in 05/2017 with Plavix being added. 3. Status post coronary artery bypass graft x4 in 1994 at [facility]. 4. Hypertension. 5. Hyperlipidemia, under good control. 6. Diabetes. 7. Former smoker. 8. Probable demand ischemia. PLAN: Patient's troponin I is minimally elevated and I doubt that this is clinically significant without any specific symptoms. However, 23 years after bypass surgery, I think it would be advisable to have him undergo adenosine Cardiolite testing for further evaluation. MICHELLE
--- NOTE | 2017-11-22 14:39 | PDOC.PN ---
- Subjective Encounter Start Date: 11/22/17 Encounter Start Time: 13:00 patient is seen today, alert and oriented. No headache, no chest pain, pt is seen by cardioogy and Scheduled for Nuc Stress test in AM. - Objective MAR Reviewed: Yes Vital Signs & Weight: Vital Signs (12 hours) Temp Pulse Pulse Pulse Pulse Resp BP 11/22/17 11:40 97.5 F L 74 16 11/22/17 11:00 80 78 80 11/22/17 08:54 89 142/86 H 11/22/17 08:11 98.2 F 89 16 11/22/17 07:41 98.2 F 89 16 11/22/17 04:00 98.2 F 74 16 BP BP BP BP Pulse Ox 11/22/17 11:40 119/93 H 99 11/22/17 11:00 174/99 H 160/90 H 119/93 H 11/22/17 08:54 11/22/17 08:11 11/22/17 07:41 142/86 H 96 11/22/17 04:00 101/79 95 Weight Weight 167 lb 6 oz I&O: 11/21/17 11/22/17 11/23/17 06:59 06:59 06:59 Intake Total 480 1240 Output Total 200 Balance 480 1040 Result Diagrams: 11/22/17 05:05 11/22/17 05:05 Additional Labs: Accuchecks 11/22/17 11/22/17 11/21/17 10:52 05:21 21:02 POC Glucose 170 H 125 H 213 H Radiology Reviewed by me: Yes Phys Exam - Physical Examination HEENT: PERRLA, moist MMs Neck: no nodes, no JVD Respiratory: no rales, clear to auscultation bilateral Cardiovascular: RRR, no significant murmur Gastrointestinal: soft, non-tender Musculoskeletal: no edema, pulses present Neurological: non-focal, normal sensation Lymphatic: no nodes Dx/Plan (1) TIA (transient ischemic attack) Status: Acute Comment: Severe headache, but no numbnes sor weaknes of arms or legs. MRI neg for stroke. (2) Uncontrolled hypertension Code(s): I10 - ESSENTIAL (PRIMARY) HYPERTENSION Status: Acute Comment: Likely from headache, Continue home meds, Pending Echo. (3) CAD (coronary artery disease) Code(s): I25.10 - ATHSCL HEART DISEASE OF [place] CORONARY ARTERY W/O ANG PCTRS Status: Chronic Comment: contoiniue Aspirin., BB, No chest pain but elevated troponins. Planned Nuc stress test in Am (4) DM2 (diabetes mellitus, type 2) Status: Chronic Comment: Well controlled. Continue SSI. (5) HTN (hypertension) Code(s): I10 - ESSENTIAL (PRIMARY) HYPERTENSION Status: Chronic Comment: well controlled, Continue with home Meds. (6) NSTEMI (non-ST elevated myocardial infarction) Code(s): I21.4 - NON-ST ELEVATION (NSTEMI) MYOCARDIAL INFARCTION Status: Acute Comment: Elevated Trop, wiaintg on cardilogy, mayt get Cath? RADHA smith. 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 Review of Systems - Review of Systems Constitutional: negative: fever, chills, sweats, weakness, malaise, other Eyes: negative: Pain, Vision Change, Conjunctivae Inflammation, Eyelid Inflammation, Redness, Other ENT: negative: Ear Pain, Ear Discharge, Nose Pain, Nose Discharge, Nose Congestion, Mouth Pain, Mouth Swelling, Throat Pain, Throat Swelling, Other Respiratory: negative: Cough, Dry, Shortness of Breath, Hemoptysis, SOB with Excertion, Pleuritic Pain, Sputum, Wheezing Cardiovascular: negative: chest pain, palpitations, orthopnea, paroxysmal nocturnal dyspnea, edema, light headedness, other Gastrointestinal: negative: Nausea, Vomiting, Abdominal Pain, Diarrhea, Constipation, Melena, Hematochezia, Other Genitourinary: negative: Dysuria, Frequency, Incontinence, Hematuria, Retention , Other Musculoskeletal: negative: Neck Pain, Shoulder Pain, Arm Pain, Back Pain, Hand Pain, Leg Pain, Foot Pain, Other - Medications/Allergies Allergies/Adverse Reactions: Allergies Allergy/AdvReac Type Severity Reaction Status Date / Time No Known Allergies Allergy Verified 06/20/17 23:36 Medications: Current Medications Acetaminophen (Tylenol) 650 mg PO Q4H PRN PRN Reason: Headache/Fever or Pain Last Admin: 11/21/17 15:39 Dose: 650 mg Aspirin (Aspirin Chewable) 81 mg PO DAILY [facility] Last Admin: 11/22/17 08:54 Dose: 81 mg Bisacodyl (Dulcolax) 10 mg PO DAILYPRN PRN PRN Reason: Constipation Calcium Carbonate (Tums) 1,000 mg PO Q4H PRN PRN Reason: Heartburn or Indigestion Diazepam (Valium) 5 mg PO DAILYPRN PRN PRN Reason: Anxiety Docusate Sodium (Colace) 100 mg PO BID [facility] Last Admin: 11/22/17 08:54 Dose: 100 mg Glyburide (Diabeta) 5 mg PO BID [facility] Last Admin: 11/22/17 08:54 Dose: 5 mg Heparin Sodium (Porcine) (Heparin) 5,000 units SC TID [facility] Last Admin: 11/22/17 08:54 Dose: Not Given Hydralazine HCl (Apresoline) 10 mg SLOW IVP Q4H PRN PRN Reason: BP > 220/110 Lisinopril (Zestril) 40 mg PO DAILY [facility] Last Admin: 11/22/17 08:54 Dose: 40 mg Metformin HCl (Glucophage) 500 mg PO BID [facility] Last Admin: 11/22/17 08:55 Dose: 500 mg Metoprolol Tartrate (Lopressor) 50 mg PO DAILY [facility] Last Admin: 11/22/17 08:55 Dose: 50 mg Nifedipine (Procardia Xl) 30 mg PO DAILY [facility] Last Admin: 11/22/17 08:54 Dose: 30 mg Ondansetron HCl (Zofran) 4 mg IVP Q6H PRN PRN Reason: Nausea/Vomiting Senna (Senokot) 2 tab PO HSPRN PRN PRN Reason: Constipation Simvastatin (Zocor) 40 mg PO HS [facility] Last Admin: 11/21/17 22:54 Dose: 40 mg Sodium Chloride (Flush - Normal Saline) 10 ml IVF PRN PRN PRN Reason: Saline Flush Last Admin: 11/22/17 08:55 Dose: 10 ml Terazosin HCl (Hytrin) 10 mg PO [facility] Last Admin: 11/21/17 22:54 Dose: 10 mg Tramadol HCl (Ultram) 50 mg PO Q6H PRN PRN Reason: Pain
[2017-11-22] MEDS: Terazosin HCl 5 MG CAP PO SCH (20:45)
[2017-11-22] MEDS: Simvastatin 40 MG TAB PO SCH (20:45)
[2017-11-23] MEDS: Heparin 5,000 UNITS/ML VIAL SC SCH ×3 (04:34→15:42)
[2017-11-23 05:48] LABS: Anion Gap 12 mmol/L (10-20); BUN (Urea Nitrogen) 17 mg/dL (8.4-25.7); Calc. Creatinine Clearance 60 mL/min (70-130); Calcium 8.8 mg/dL (7.8-10.44); Carbon Dioxide 26 mmol/L (23-31); Chloride 106 mmol/L (98-107); Estimated GFR-MDRD 88; Glucose 84 mg/dL (83-110); Potassium 3.3 mmol/L (3.5-5.1); Sodium 141 mmol/L (136-145)
[2017-11-23 06:26] LABS: Hemoglobin 12.6 g/dL (14.0-18.0); Hypochromia SLIGHT = 6-15 cells (100X) (0-5/hpf); Lymphocytes 52 % (21-51); MDiff Complete? YES; Mean Corpuscular HGB CONC 32.5 g/dL (32.0-36.0); Mean Corpuscular Hemoglobin 27.3 pg (27.0-31.0); Mean Corpuscular Volume 84.1 fL (78.0-98.0); Mean Platelet Volume 10.2 fL (7.4-10.4); Monocytes 5 % (0-10); Neutrophil 43 % (42-75); PLT Morphology Comment Appears Decreased; Platelet Count 99 thou/uL (130-400); RBC Distribution Width 12.3 % (11.5-14.5); Red Blood Cell (RBC) Count 4.62 mill/uL (4.70-6.10); White Blood Cell (WBC) Count 8.7 thou/uL (4.8-10.8)
[2017-11-23] MEDS ORDERED: ADENOSINE 60 MG/20 ML VIAL ONE (08:41)
[2017-11-23] MEDS ORDERED: Potassium Chloride 20 MEQ TAB PO SCH (09:15)
[2017-11-23] MEDS: Lisinopril 20 MG TAB PO SCH (12:34)
[2017-11-23] MEDS: Docusate 100 MG CAP PO SCH (12:34)
[2017-11-23] MEDS: NIFEdipine XL 30 MG TAB PO SCH (12:35)
[2017-11-23] MEDS: glyBURIDE 5 MG TAB PO SCH (12:35)
[2017-11-23] MEDS: Metoprolol Tartrate 50 MG TAB PO SCH (12:35)
[2017-11-23] MEDS: metFORMIN 500 MG TAB PO SCH (12:36)
--- NOTE | 2017-11-23 13:40 | NM ---
MYOCARDIAL PERFUSION STUDY: Date: 11-23-17 History: Elevated troponins. History of coronary artery disease. History of prior CABG. Radiopharmaceuticals: 31.4 mCi Technetium 99M Sestamibi, IV at stress and 27 mCi Technetium 99M Sesta mibi, IV at rest. Medications: 14.1 ml (42.5 mg) Adenosine, IV. FINDINGS: There is absent uptake of radiotracer seen within the inferior wall left ventricular myocardium on justin th the resting and stress acquisitions. No significant reversible defect is identified. The gated sachin ges demonstrate global hypokinesis with absent thickening in the inferior left ventricular wall. Calc ulated left ventricular ejection fraction is diminished at 34%. IMPRESSION: 1. Abnormal myocardial perfusion study with scarring in the inferior left ventricular wall. No revers ible defect is seen to suggest ischemia. 2. Global hypokinesis with absent thickening in the inferior left ventricular wall. 3. Decreased LVEF of 34%. POS: [facility]
[2017-11-23 15:38] VITALS: TEMP 98
[2017-11-23 17:14] VITALS: BP 157/92
--- NOTE | 2017-11-24 04:06 | DIS ---
DATE OF ADMISSION: 11/20/2017 DATE OF DISCHARGE: 11/23/2017 CONDITION AT THE TIME OF DISCHARGE: Stable and improved. PRIMARY CARE PHYSICIAN: Dr. Hernandez at [facility]. DISCHARGE MEDICATIONS: Aspirin 81 mg daily, lisinopril 40 mg daily, diazepam 5 mg p.r.n., tramadol p .r.n., metformin 500 b.i.d., glyburide 5 mg b.i.d., terazosin 10 mg daily, Zocor 40 mg daily, nifedip ine XL 30 mg daily, metoprolol tartrate 50 mg daily. INHOUSE CONSULTATIONS: Cardiology, Dr. Jiang. PROCEDURES IN THE HOSPITAL: 1. Include MRI of the brain which is negative for any acute hemorrhage or infarction. 2. Transthoracic echocardiogram, which shows EF of 50%-55% and diastolic dysfunction. 3. Nuclear medicine stress test, which is negative for any fixed or reversible defect, but EF is est imated different than the echo and shows EF of 34%. He does have global hypokinesis with absent thic kening in the inferior left ventricular wall. Once again, no reversible defect was seen. HISTORY OF PRESENTING ILLNESS: Mr. Muñiz is an 82-year-old male with known history of coronary arter y disease, status post CABG about 30 years ago and diabetes who presented to the hospital with compla ints of right-sided headache and neck pain. CT scan done in the ER was unremarkable and chest x-ray showed mild cardiomegaly. His labs were rather unremarkable upon presentation. He was admitted for further evaluation of his headache. He did have elevated troponin of 0.052, then 0.053, then 0.045. Cardiology was consulted with regard to that as the patient has history of significant coronary anthony ry disease. Please see admission history and physical for further details. HOSPITAL COURSE: The patient underwent workup for stroke and underwent an MRI, which was normal. I did have chronic changes. Neurology was consulted and Dr. Adair saw the patient, he had no new rec ommendations. He recommended continuation of his aspirin and Plavix, but the patient is not on any P lavix as per my discussion with him. With regards to his elevated cardiac enzymes, Dr. Jiang saw the patient for Cardiology. His last cardiac enzyme troponin was 0.045. Echo and stress test results as above. The discrepancy between e jection fraction of echo and stress test was discussed with Dr. Jiang, who was not really worried about this. He reported that the patient can be discharged and follow up in the outpatient setting. Home medications were resumed and he was discharged. He was seen and examined prior to discharge. PHYSICAL EXAMINATION: VITAL SIGNS: Temperature 98, heart rate 79, saturating 97% on room air, respirations 16, blood press ure 157/92. GENERAL: No acute distress, awake, alert, and oriented x3. He is currently asymptomatic. CHEST: Clear to auscultation. HEART: Rate and rhythm is regular. Discharge plan was discussed with the patient and his who verbalized understanding.
--- NOTE | 2017-11-26 12:41 | STRESS ---
Acquisition Time: 2017-11-23 10:44:00 Total Exercise Time: 00:04:00 Test Indications: ELEVATED TROPONINS Medications: Protocol: ADENOSINE Max HR: 111 BPM 81% of Pred: 136 BPM Max BP: 188/080 mmHG Max Work Load: 1.0 METS RESTING ECG: NORMAL SINUS RHYTHM AT 88 BPM WITH COMPLETE RIGHT BUNDLE BRANCH BLOCK SYMPTOMS: NONE NORMAL BP RESPONSE ECTOPY: NONE ECG STESS: NO SIGNIFICANT CHANGES INTERPRETATION: INDETERMINATE ECG/AWAIT NUCLEAR IMAGES FOR DEFINITIVE DIAGNOSIS Confirmed by OBEY DIALLO ELLEN ([id number]) on 11/26/2017 12:40:27 PM Referred By: MD Iris CAPPS Confirmed By:SHAR DIALLO PA-C
--- NOTE | 2017-11-26 13:22 | EKG ---
Test Reason : TIA, ELEVATED TROP Blood Pressure : / mmHG Vent. Rate : 089 BPM Atrial Rate : 089 BPM P-R Int : 114 ms QRS Dur : 124 ms QT Int : 402 ms P-R-T Axes : 022 068 059 degrees QTc Int : 489 ms Normal sinus rhythm Possible Left atrial enlargement Right bundle branch block Inferior infarct , age undetermined T wave abnormality, consider lateral ischemia No STEMI Abnormal ECG Confirmed by WILDA Wang, LINDSEY ([id number]), editorial director MOHAMUD KIRBY ([id number]) on 11/26/2017 1:22:06 PM Referred By: Confirmed By:LINDSEY ASTUDILLO M.D.
== END 2017-11-23 18:31 | disposition home or self-care (01) | DRG 103 ==
LOC: ERS 16:26 → OBSVTOIN 22:28 → 2SE 22:28
PROVIDERS: ADMIT Internal Medicine; ATTEND Internal Medicine
DX: R51 Headache (principal); I24.8 Other forms of acute ischemic heart disease; M54.2 Cervicalgia; E11.9 Type 2 diabetes mellitus without complications; I10 Essential (primary) hypertension; I25.10 Atherosclerotic heart disease of native coronary artery without angina pectoris; E78.5 Hyperlipidemia, unspecified; E87.6 Hypokalemia; I25.2 Old myocardial infarction; Z87.891 Personal history of nicotine dependence; Z79.84 Long term (current) use of oral hypoglycemic drugs; Z79.82 Long term (current) use of aspirin; Z79.899 Other long term (current) drug therapy; Z95.1 Presence of aortocoronary bypass graft
CPT/HCPCS: 36415; 36416; 70551; 78452; 80048; 80061; 83735; 84484; 85025; 93005; 93017; 93306; 94760; 96360; 96361; A9500; G8978-GP-CI; G8979-GP-CI; G9162-GN-CI; G9163-GN-CI; J0153; J0360; J1644

== ENCOUNTER 2018-02-18 18:09 | Inpatient (IN) | payer MEDICARE ==
[2018-02-18] MEDS ORDERED: Ondansetron PF 4 MG/2 ML Vial IVP PRN (18:25)
[2018-02-18] MEDS ORDERED: Labetalol HCl 100 MG/20 ML VIAL SLOW IVP PRN (18:25)
[2018-02-18] MEDS ORDERED: Dextrose 50% Abboject 50 ML SYRINGE SLOW IVP PRN (18:27)
[2018-02-18] MEDS ORDERED: Dextrose 5% in Water 1,000 ML IV PRN (18:27)
[2018-02-18] MEDS ORDERED: Bisacodyl 10 MG SUPP PR PRN (18:28)
[2018-02-18] MEDS ORDERED: Milk Of Magnesia 30 ML UDCUP PO PRN (18:28)
[2018-02-18 19:05] LABS: Bilirubin Negative (Negative); Blood, Urine Moderate (Negative); Clarity CLOUDY (Clear); Glucose, Urine (Dipstick) >=1000 mg/dL (Negative); Leukocyte Negative (Negative); Nitrite Negative (Negative); Protein, Urine (Dipstick) 100 mg/dL (Neg-Trace); Specific Gravity, Urine 1.044 (1.002-1.036); Urobilinogen 0.2 mg/dL (0.2-1.0); pH, Urine 5.5 (5.0-9.0)
[2018-02-18 19:07] LABS: Bacteria/HPF None Seen HPF (None Seen); Hyaline Casts/LPF 0-3 HYALINE CAST LPF (0-3 Hyaline); Pathc Cast-AUWi Flag 0.29 (0-2.49); Squamous Epithelial 0-3 HPF (0-3); WBC/HPF 0-3 HPF (0-3)
[2018-02-18] MEDS ORDERED: niCARdipine 20MG In NaCl 20 MG/200 ML BAG ONE (19:20)
--- NOTE | 2018-02-18 20:23 | HP ---
DATE OF ADMISSION: 02/18/2018 CHIEF COMPLAINT: Right-sided weakness and facial droop. PRIMARY CARE PHYSICIAN: HISTORY OF PRESENTING ILLNESS: Mr. Muñiz is a pleasant 83-year-old male with past medical history of coronary artery disease status post CABG in 1994 as well as diabetes, hypertension, and obesity, who presented to outside emergency room with above-mentioned complaint. History is mainly obtained by d iscussion with the ER physician and record review. The patient is severely altered at this time with mentation and no family is available at bedside yet. Mr. Muñiz was brought into [place] [facility] when he was found in the bathtub by his family fernanda baker. He was apparently nonverbal, and it was noticed that he had right-sided facial droop and was n ot moving his right arm or leg. He immediately got a CT scan in the emergency room in [place] which was unremarkable. His blood pressure was significantly elevated at 210/130 in the ER. He also unde rwent a CT angio which did not show any obvious occlusions. His NIHSS was almost 22. EKG showed sin us tachycardia. He was given multiple rounds of labetalol and Ativan to control his blood pressure a nd eventually was started on nicardipine drip and was airlifted to our emergency room. Here he recei frank TPA as he was still in the window for the same and his blood pressure has improved significantly. At the time of my evaluation, the patient has received almost half of the TPA and some right leg move ment is noticed. He is still not able to move his right arm and remains aphasic with significant rig ht-sided neglect. He is now being admitted to CCU for the post-TPA protocol for most likely acute le ft-sided ischemic infarction. PAST MEDICAL HISTORY: 1. Coronary artery disease, status post CABG x4 vessels in 1994. 2. Diabetes mellitus type 2. 3. Obesity. 4. Hypertension. 5. Anxiety. PAST SURGICAL HISTORY: Coronary artery bypass graft. ALLERGIES: No known medication allergies. HOME MEDICATIONS: Not reconciled as yet. We will get the full list from his family once they are he re. FAMILY HISTORY: Unobtainable. Nothing noted in the records. SOCIAL HISTORY: According to the record review, he is an active smoker. No history of drug or alcoh ol abuse. REVIEW OF SYSTEMS: Unobtainable as the patient remains altered with complete aphasia. LABORATORY DATA: CBC unremarkable. His PT, PTT, and INR are within normal limits. His serum chemis try shows blood sugar of 314, otherwise no electrolyte abnormalities. CT scan of the brain by my review is negative for any hemorrhage. There is questionable hyperdensity in the left sylvian fissure, which may represent a branch of left MCA as per the radiologist. CT an foreign of the [place] with contrast as well as CT angio of the neck is read unremarkable. PHYSICAL EXAMINATION: VITAL SIGNS: Upon presentation to the ER, blood pressure 210/130, which is improved to systolic 140s to diastolic 80s, pulse 120. On presentation, respirations 26, oxygen saturation 98% on room air. GENERAL: The patient is fidgety and keeps his head rotated to the left side. He is not following an y commands and keeps picking on his clothes. Otherwise, in no acute distress. He remains aphasic. HEENT: Mucous membrane is moist. No oropharyngeal exudate or erythema. Right-sided facial droop is noticed. Head appears normocephalic, atraumatic. Pupillary reaction is difficult to ascertain valerie use of the patient's noncooperation. NECK: Supple without any lymphadenopathy, JVD, or bruit. CHEST: Clear to auscultation without any wheezing, rales or rhonchi. Rate and rhythm are regular wi thout any murmur, rubs, or gallops. ABDOMEN: Obese, soft, nontender, nondistended. EXTREMITIES: Free of any cyanosis, clubbing, or edema. NEUROLOGIC: He is moving his right leg better now. He has complete hemiparesis of the right arm. H e is showing signs of right-sided neglect and right facial droop. He is completely aphasic as well. NIH score of 15 at the emergency room on presentation. IMPRESSION AND PLAN: 1. Acute cerebrovascular accident with right-sided hemiparesis and expressive aphasia. He will comp lete the TPA and he will be admitted to CCU post-TPA protocol. We will get Neurology consultation as well as stroke team consultation and get MRI and echocardiogram in the morning. He does not have an y evidence of occlusion on the CT angiogram of the head and neck. He will be started on gentle IV fl uid hydration and we will control his blood pressure with nicardipine drip as needed to keep systolic blood pressure less than 160 post-TPA. Avoid any antiplatelet or anticoagulants in the immediate 24 -hour post-TPA. Frequent neuro checks per the TPA protocol every 1 hour for now. 2. History of coronary artery disease, status post coronary artery bypass graft. We will restart hi s home medications once he is more stable and cleared by speech pathologist for oral swallow. He is unsafe for any oral medication for now. 3. History of diabetes mellitus. We will put him on insulin sliding scale with frequent Accu-Cheks. 4. Deep venous thrombosis and gastrointestinal prophylaxes with sequential compression devices and b .i.d. IV Pepcid for now. 5. Add p.r.n. medication orders and continue supportive care. 6. Code status: Presumed FULL. Will be readdressed once the family is here. DISPOSITION: Mr. Muñiz is currently being admitted in the CCU post-TPA for acute CVA. Estimated olman gth of stay at least 2-3 midnights. Further management will depend upon his clinical course.
[2018-02-18] MEDS: Acetaminophen 650 MG Suppository PR PRN (20:35)
[2018-02-18] MEDS: niCARdipine HCl 25 MG in Sodium Chloride 0.9% 250 ML 240 ML IVPB PRN ×2 (20:36→22:40)
[2018-02-18] MEDS: Famotidine/PF 20 mg/2ml Vial SLOW IVP SCH (20:41)
[2018-02-18] MEDS: Sodium Chloride 0.9% 1,000 ML IV SCH (20:43)
[2018-02-18] MEDS ORDERED: SODIUM CHLORIDE 0.9% IV SCH (21:15)
--- NOTE | 2018-02-18 21:28 | RAD ---
CHEST ONE VIEW: 02/18/18 COMPARISON: 11/20/17. HISTORY: Fever. Evaluate for infection. FINDINGS: Portable upright chest radiograph demonstrates sternotomy wires and mediastinal clips. Normal cardiac silhouette. Pulmonary vessels and hilum are normal. Costophrenic angles are clear. No consolidation or mass. No pneumothorax or osseous abnormalities. IMPRESSION: No acute cardiopulmonary process. POS: [facility]
[2018-02-18] MEDS ORDERED: ZOSYN IVPB PRN (21:47)
[2018-02-18] MEDS ORDERED: VANCOMYCIN IVPB PRN (21:47)
[2018-02-18] MEDS: HumaLOG 300 UNITS/3 ML VIAL SC PRN (21:54)
[2018-02-18] MEDS: Atorvastatin Calcium 40 MG TAB PO SCH (22:11)
[2018-02-18] MEDS: Communication Order-Pharmacy FS SCH (22:11)
[2018-02-19 01:25] LABS: Lactic Acid 1.7 mmol/L (0.5-2.2)
[2018-02-19] MEDS: niCARdipine HCl 25 MG in Sodium Chloride 0.9% 250 ML 240 ML IVPB PRN ×3 (01:31→17:47)
[2018-02-19] MEDS: Sodium Chloride 0.9% 1,000 ML IV SCH ×2 (02:53→14:51)
[2018-02-19] MEDS: HumaLOG 300 UNITS/3 ML VIAL SC PRN ×3 (06:18→17:39)
[2018-02-19] MEDS: Famotidine/PF 20 mg/2ml Vial SLOW IVP SCH ×3 (08:26→21:45)
[2018-02-19] MEDS ORDERED: Prevnar 13-Val Conj/PF 0.5 ML SYRINGE IM ONE (09:00)
--- NOTE | 2018-02-19 12:02 | MRI ---
CT BRAIN WITHOUT CONTRAST: HISTORY: Altered mental status. FINDINGS: Correlation is made with the CT scan from the previous day. FINDINGS: No restricted diffusion is seen. There are foci of T2 prolongation of the periventricular white zoie er consistent with chronic small vessel ischemic disease. Ventricular size is appropriate and the ba silar cisterns are patent. There is mucosal disease in the paranasal sinuses. IMPRESSION: No evidence of acute intracranial process. POS: [facility]
[2018-02-19] MEDS: Acetaminophen 650 MG Suppository PR PRN (13:08)
--- NOTE | 2018-02-19 14:06 | PDOC.PN ---
- Subjective Encounter Start Date: 02/19/18 Encounter Start Time: 14:04 Subjective: remains about the same without any improvement post t-PA -: not able to talk - Objective MAR Reviewed: Yes Vital Signs & Weight: Vital Signs (12 hours) Temp Pulse BP BP Pulse Ox Pulse Ox Pulse Ox 02/19/18 13:00 102.5 F H 02/19/18 12:00 101.1 F H 02/19/18 11:24 130 H 174/96 H 174/89 H 100 100 02/19/18 08:00 98.3 F 02/19/18 07:56 100 02/19/18 03:00 97.9 F Weight Admit Weight 172 lb Weight 172 lb 9.951 oz Most Recent Monitor Data Heart Rate from ECG 112 NIBP 146/80 NIBP BP-Mean 102 Respiration from ECG 21 SpO2 98 I&O: 02/18/18 02/19/18 02/20/18 06:59 06:59 06:59 Intake Total 2563 0 Output Total 2045 1005 Balance 518 -1005 Additional Labs: Accuchecks 02/19/18 02/19/18 02/18/18 12:34 06:17 21:50 POC Glucose 279 H 324 H 334 H Radiology Reviewed by me: Yes (MRI-no acute event) Phys Exam - Physical Examination remains non responsive for verbal/tactile stimulus HEENT: moist MMs forced expiration thru mouth,gurgling in throat Neck: no JVD Respiratory: no wheezing, no rales, no rhonchi, clear to auscultation bilateral Cardiovascular: RRR, no significant murmur Gastrointestinal: soft, non-tender, no distention, positive bowel sounds Musculoskeletal: no edema, pulses present R arm paresis,r hemineglect,expressive aphasia.encephalopathy Dx/Plan (1) Acute encephalopathy Code(s): G93.40 - ENCEPHALOPATHY, UNSPECIFIED Status: Acute (2) Uncontrolled hypertension Code(s): I10 - ESSENTIAL (PRIMARY) HYPERTENSION Status: Acute Comment: remains on Cardene drip (3) Ischemic cerebrovascular accident (CVA) Code(s): I63.9 - CEREBRAL INFARCTION, UNSPECIFIED Status: Acute (4) CAD (coronary artery disease) Code(s): I25.10 - ATHSCL HEART DISEASE OF [place] CORONARY ARTERY W/O ANG PCTRS Status: Chronic Comment: contoiniue Aspirin., BB, No chest pain but elevated troponins. Planned Nuc stress test in Am (5) DM2 (diabetes mellitus, type 2) Status: Chronic Comment: Well controlled. Continue SSI. - Plan PT/OT, incentive spirometry, DVT proph w/SCDs Poor prognosis w no response to t-PA.MRI does not show acute changes -: Care discussed w over phone. 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 * . Review of Systems - Review of Systems Other: can not be obtained due to expressive aphasia and confusion - Medications/Allergies Allergies/Adverse Reactions: Allergies Allergy/AdvReac Type Severity Reaction Status Date / Time No Known Allergies Allergy Verified 06/20/17 23:36 Medications: Current Medications Acetaminophen (Tylenol) 650 mg [place] Q4H PRN PRN Reason: Headache/Fever/Mild Pain (1-3) Last Admin: 02/19/18 13:08 Dose: 650 mg Atorvastatin Calcium (Lipitor) 40 mg PO HS [facility] Last Admin: 02/18/18 22:11 Dose: Not Given Bisacodyl (Dulcolax) 10 mg [place] DAILYPRN PRN PRN Reason: Constipation Dextrose/Water (Dextrose 50%) 25 gm SLOW IVP PRN PRN PRN Reason: Hypoglycemia Famotidine (Pepcid) 20 mg SLOW IVP Q12HR [facility] Last Admin: 02/19/18 08:26 Dose: 20 mg Glucagon (Glucagon) 1 mg IM PRN PRN PRN Reason: Hypoglycemia Hydralazine HCl (Apresoline) 10 mg SLOW IVP Q4H PRN PRN Reason: SBP > 180 and HR < 70 Dextrose/Water (D5w) 1,000 mls @ 0 mls/hr IV .Q0M PRN PRN Reason: Hypoglycemia Nicardipine HCl 25 mg/ Sodium (Chloride) 250 mls @ 0 mls/hr IVPB INF PRN; Protocol PRN Reason: SBP > 180 or DBP > 105 Last Admin: 02/19/18 11:15 Dose: 250 mls Sodium Chloride (Normal Saline 0.9%) 1,000 mls @ 50 mls/hr IV .Q20H [facility] Last Admin: 02/19/18 02:53 Dose: 1,000 mls Vancomycin HCl 750 mg/ Sodium (Chloride) 250 mls @ 250 mls/hr IVPB 2200 IZZ[facility] Insulin Human Lispro (Humalog) 0 units SC .MODERATE SLIDING SC PRN PRN Reason: Moderate Correctional Scale Last Admin: 02/19/18 12:35 Dose: 6 unit Insulin Human Lispro (Humalog) 0 units SC .BEDTIME SLIDING SC PRN PRN Reason: Bedtime Correctional Scale Last Admin: 02/18/18 21:54 Dose: 4 unit Labetalol HCl (Normodyne) 20 mg SLOW IVP Q4H PRN PRN Reason: SBP > 180 and HR >/= 100 Magnesium Hydroxide (Milk Of Magnesium) 30 ml PO BIDPRN PRN PRN Reason: Constipation Miscellaneous Information (Communication Order-Pharmacy) 1 each FS NOW [facility] Stop: 02/19/18 18:29 Last Admin: 02/18/18 22:11 Dose: Not Given Miscellaneous Medication (Pharmacy To Dose) 1 each IVPB PRN PRN PRN Reason: EMPIRIC Ondansetron HCl (Zofran) 4 mg IVP Q6H PRN PRN Reason: Nausea/Vomiting
[2018-02-19] MEDS: Labetalol HCl 100 MG/20 ML VIAL SLOW IVP PRN (17:25)
[2018-02-19] MEDS ORDERED: levETIRAcetam 2,000 MG in Sodium Chloride 0.9% 100 ML IVPB SCH (17:45)
--- NOTE | 2018-02-19 18:13 | CON ---
DATE OF CONSULTATION: 02/19/2018 HISTORY OF PRESENT ILLNESS: Mr. Muñiz is an 83-year-old male who presented with hemiplegia. He was given TPA. Today from talking to the nurses and examining him they tell me he has improved. An MRI today does not show a thrombotic event and brain infarction. He is encephalopathic. He does not open his eyes. He is snoring. Moves his right leg, but he is not moving his right arm. He is aphasic and has his eyes deviated suggesting hemineglect on the right. PAST MEDICAL HISTORY: Remarkable for coronary artery disease, diabetes, hypertension, coronary artery bypass grafting in the past. FAMILY HISTORY: Negative for lung disease. SOCIAL HISTORY: Non contributory. REVIEW OF SYSTEMS: 10 point review of systems completed, not obtainable. PHYSICAL EXAMINATION: VITAL SIGNS: Blood pressure 152/80, heart rate 113, respiratory rate is 25, oximetry is 100%. HEENT: Pupils react. Sclerae is anicteric. NECK: Supple without lymphadenopathy. LUNGS: Clear at this time. He appears to be handling his secretions for now. HEART: Regular rhythm. S1 and S2 are normal. ABDOMEN: Soft and nontender with no guarding. He has a protuberant abdomen. EXTREMITIES: Without clubbing, cyanosis, or edema. NEUROLOGIC: As noted above. LABORATORY DATA: Urinalysis showed 100 mg per deciliter of protein. White count yesterday afternoon 10.7, hemoglobin 13.3 and platelets 110,000. He did not have a repeat CBC today. Electrolytes were normal. Glucose was 314 and hemoglobin A1c was 7. IMPRESSION: Status post TPA with a negative MRI except for chronic ischemic white matter changes, still hemiplegic, aphasic and has an altered mental status. I doubt this is meningitis. I suppose it could be seizure activity contributing with Sheldon's paralysis, but this would seem to be unlikely. Unfortunately, we do not have EEG available on a holiday weekend. We will continue with supportive care. lp might be considered. Neurology has been consulted. This is a 70 minute consult, with greater than 50% of time spent on unit in coordination of care. MICHELLE
--- NOTE | 2018-02-19 19:06 | CON ---
DATE OF CONSULTATION: 02/19/2018 IMPRESSION: The patient appears to have suffered a left middle cerebral artery stroke, although ther e is nothing present on MRI as far as an anatomical correlate. Subclinical seizure activity would be a consideration. PLAN: Monitor clinical course for now. Mr. Muñiz was admitted today after developing expressive aphasia and right-sided weakness. His CT an giogram did not reveal any evidence of intracranial stenosis. He was given TPA and then moved to the unit. He has failed to show any change in his clinical status. On exam, he has a left gaze preference. There is some right facial flattening. The right side appea rs to be flaccid. Plantar response was downgoing on the right. No abnormal movements were seen. Th e patient was nonverbal. Confusing clinical picture given his exam would be fairly typical for an ischemic event, there is not liz showing up on MRI. EEG is not available today. We would suggest we monitor his course for now and see if it clears.
[2018-02-19] MEDS: Atorvastatin Calcium 40 MG TAB PO SCH (21:22)
[2018-02-19] MEDS ORDERED: Vancomycin HCl 750 MG in Sodium Chloride 0.9% 250 ML 250 ML IVPB SCH (22:00)
[2018-02-19] MEDS: Communication Order-Pharmacy FS SCH (23:00)
[2018-02-20] MEDS: Acetaminophen 650 MG Suppository PR PRN ×2 (00:31→07:46)
[2018-02-20] MEDS: HumaLOG 300 UNITS/3 ML VIAL SC PRN ×2 (03:55→18:16)
[2018-02-20] MEDS: Sodium Chloride 0.9% 1,000 ML IV SCH (03:55)
[2018-02-20 04:55] LABS: Anion Gap 16 mmol/L (10-20); BUN (Urea Nitrogen) 12 mg/dL (8.4-25.7); Calc. Creatinine Clearance 61 mL/min (70-130); Calcium 8.3 mg/dL (7.8-10.44); Carbon Dioxide 22 mmol/L (23-31); Chloride 105 mmol/L (98-107); Estimated GFR-MDRD 88; Glucose 229 mg/dL (83-110); Potassium 3.7 mmol/L (3.5-5.1); Sodium 139 mmol/L (136-145)
[2018-02-20 05:53] LABS: Hemoglobin 13.4 g/dL (14.0-18.0); Lymphocytes 52 % (21-51); MDiff Complete? YES; Mean Corpuscular HGB CONC 31.7 g/dL (32.0-36.0); Mean Corpuscular Hemoglobin 26.5 pg (27.0-31.0); Mean Corpuscular Volume 83.5 fL (78.0-98.0); Mean Platelet Volume 10.9 fL (7.4-10.4); Monocytes 5 % (0-10); Neutrophil 41 % (42-75); PLT Morphology Comment Appears Decreased; Platelet Count 104 thou/uL (130-400); RBC Distribution Width 13.2 % (11.5-14.5); Reactive Lymphocytes 2 % (0-10); Red Blood Cell (RBC) Count 5.07 mill/uL (4.70-6.10); White Blood Cell (WBC) Count 13.6 thou/uL (4.8-10.8)
[2018-02-20] MEDS: Aspirin 300 MG Suppository PR SCH (08:47)
[2018-02-20] MEDS: Famotidine/PF 20 mg/2ml Vial SLOW IVP SCH ×2 (08:47→20:41)
[2018-02-20] MEDS ORDERED: cloNIDine 0.1mg/24 Hour PATCH TD SCH (09:00)
--- NOTE | 2018-02-20 10:51 | PRG ---
DATE OF SERVICE: 02/20/2018 SUBJECTIVE: Baltazar Muñiz is more alert. He makes eye contact. He is still hemiplegic. He is still aphasic. He does intermittently follow commands on his left today. OBJECTIVE: VITALS: Oximetry is 96 on room air. He has some purulent discharge from his right naris. Heart rate is 112, blood pressure 160/84. LUNGS: Clear today. His respiratory status has improved dramatically. HEART: Regular rhythm. S1 and S2 are normal. ABDOMEN: Soft and nontender. EXTREMITIES: Without asymmetry or edema. LABORATORY DATA: White count 13.6, hemoglobin 13.4, platelets 104,000. Sodium 139, potassium 3.7, chloride 105, bicarbonate 22, BUN 12, creatinine 0.98, glucose 229. IMPRESSION: Hemiplegia of unclear etiology. He clinically appears to have had a right hemispheric stroke but his brain MRI did not show that. He was started on seizure medication yesterday afternoon by Dr. Adair. It would be nice if we had the EEG but we do not. Consideration for transfer for further care since there is no EEG available might be entertained. MICHELLE
[2018-02-20] MEDS: Labetalol HCl 100 MG/20 ML VIAL SLOW IVP PRN ×2 (10:52→22:10)
--- NOTE | 2018-02-20 11:20 | PRG ---
DATE OF SERVICE: 02/20/2018 SUBJECTIVE: Mr. Muñiz apparently had a fever last night. He got up to 102.5. Vancomycin was empirically started by the Hospitalist. I put a hold on this. Neurology has recommended a lumbar puncture, which I would agree with since he has a very atypical presentation for hemiplegia that had not been explained by structural brain abnormalities. MICHELLE
[2018-02-20] MEDS ORDERED: Lidocaine 1% (PF) 30 ML VIAL ONE (11:24)
--- NOTE | 2018-02-20 13:22 | PDOC.PN ---
- Subjective Encounter Start Date: 02/20/18 Encounter Start Time: 13:21 Subjective: slight improvement only.able to look and turn on right side -: able to focus w eyes and smile when name is called -: R arm paresis perists,encepahlopathy persists - Objective MAR Reviewed: Yes Vital Signs & Weight: Vital Signs (12 hours) Temp Pulse BP Pulse Ox 02/20/18 10:52 103 H 187/102 H 02/20/18 09:00 100 F H 02/20/18 07:52 96 02/20/18 07:42 99 02/20/18 07:00 103 F H 02/20/18 04:00 99.3 F 02/20/18 02:00 101.4 F H Weight Admit Weight 172 lb Weight 174 lb 6.17 oz Most Recent Monitor Data Heart Rate from ECG 103 NIBP 169/96 NIBP BP-Mean 120 Respiration from ECG 25 SpO2 96 I&O: 02/19/18 02/20/18 02/21/18 06:59 06:59 06:59 Intake Total 2563 1620.8 Output Total 2045 2580 320 Balance 518 -959.2 -320 Result Diagrams: 02/20/18 03:50 02/20/18 03:50 Additional Labs: Accuchecks 02/20/18 02/20/18 02/19/18 11:15 03:50 21:40 POC Glucose 207 H 216 H 178 H 02/19/18 17:39 POC Glucose 205 H Microbiology 02/18/18 21:35 Venous blood - Right Arm Blood Culture - Preliminary Specimen has been received and culture in progress. No Growth to date. 02/18/18 21:35 Venous blood - Right Arm Blood Culture - Preliminary NO GROWTH AT 48 HOURS 02/18/18 21:08 Venous blood - Right Arm Blood Culture - Preliminary Specimen has been received and culture in progress. No Growth to date. 02/18/18 21:08 Venous blood - Right Arm Blood Culture - Preliminary NO GROWTH AT 48 HOURS 02/18/18 18:50 Urine tate catheter Urine Culture - Preliminary NO GROWTH AT 24 HOURS Laboratory Tests Phys Exam - Physical Examination Constitutional: NAD able to respond w smile ,turned to right side HEENT: moist MMs, sclera anicteric, oral pharynx no lesions Neck: no nodes, no JVD Respiratory: no wheezing, no rales, no rhonchi Cardiovascular: RRR, no significant murmur Gastrointestinal: soft, non-tender, no distention, positive bowel sounds Musculoskeletal: no edema, pulses present R arm paresis,aphasia,encephalopathy Skin: no rash Dx/Plan (1) Acute encephalopathy Code(s): G93.40 - ENCEPHALOPATHY, UNSPECIFIED Status: Acute (2) Uncontrolled hypertension Code(s): I10 - ESSENTIAL (PRIMARY) HYPERTENSION Status: Acute Comment: kavita of Cardene drip (3) Fever Code(s): R50.9 - FEVER, UNSPECIFIED Status: Acute (4) CAD (coronary artery disease) Code(s): I25.10 - ATHSCL HEART DISEASE OF [place] CORONARY ARTERY W/O ANG PCTRS Status: Chronic Comment: contoiniue Aspirin., BB, No chest pain but elevated troponins. Planned Nuc stress test in Am (5) DM2 (diabetes mellitus, type 2) Status: Chronic Comment: Well controlled. Continue SSI. (6) Ischemic cerebrovascular accident (CVA) Code(s): I63.9 - CEREBRAL INFARCTION, UNSPECIFIED Status: Ruled-out Comment : MRI negative for same - Plan DVT proph w/SCDs MRI negative for CVA.now w fever-? encephalitis -: LP done .will follow the results. -: ABx stopped by PCCM.follow final recs -: BP still uncontrolled. add clonidine patch.cont PRN meds -: ? seizures w status-started on keppra. will continue * .am labs * supportive care.aspiration precautions Review of Systems - Review of Systems Other: can not be obtained due to encephalopathy - Medications/Allergies Allergies/Adverse Reactions: Allergies Allergy/AdvReac Type Severity Reaction Status Date / Time No Known Allergies Allergy Verified 06/20/17 23:36 Medications: Current Medications Acetaminophen (Tylenol) 650 mg [place] Q4H PRN PRN Reason: Headache/Fever/Mild Pain (1-3) Last Admin: 02/20/18 07:46 Dose: 650 mg Aspirin (Aspirin) 300 mg MA DAILY [facility] Last Admin: 02/20/18 08:47 Dose: 300 mg Atorvastatin Calcium (Lipitor) 40 mg PO HS [facility] Last Admin: 02/19/18 21:22 Dose: Not Given Bisacodyl (Dulcolax) 10 mg [place] DAILYPRN PRN PRN Reason: Constipation Clonidine (Sohrbofz-Tax-5 Patch) 0.1 mg TD Q7DAYS [facility] Last Admin: 02/20/18 10:23 Dose: 0.1 mg Dextrose/Water (Dextrose 50%) 25 gm SLOW IVP PRN PRN PRN Reason: Hypoglycemia Famotidine (Pepcid) 20 mg SLOW IVP Q12HR [facility] Last Admin: 02/20/18 08:47 Dose: 20 mg Glucagon (Glucagon) 1 mg IM PRN PRN PRN Reason: Hypoglycemia Hydralazine HCl (Apresoline) 10 mg SLOW IVP Q4H PRN PRN Reason: SBP > 180 and HR < 70 Dextrose/Water (D5w) 1,000 mls @ 0 mls/hr IV .Q0M PRN PRN Reason: Hypoglycemia Nicardipine HCl 25 mg/ Sodium (Chloride) 250 mls @ 0 mls/hr IVPB INF PRN; Protocol PRN Reason: SBP > 180 or DBP > 105 Last Admin: 02/19/18 17:47 Dose: 250 mls Sodium Chloride (Normal Saline 0.9%) 1,000 mls @ 50 mls/hr IV .Q20H [facility] Last Admin: 02/20/18 03:55 Dose: 1,000 mls Levetiracetam 500 mg/ Device 100 mls @ 200 mls/hr IVPB BID [facility] Last Admin: 02/20/18 10:22 Dose: 100 mls Acyclovir Sodium 600 mg/ (Sodium Chloride) 112 mls @ 112 mls/hr IVPB Q8HR [facility] Insulin Human Lispro (Humalog) 0 units SC .MODERATE SLIDING SC PRN PRN Reason: Moderate Correctional Scale Last Admin: 02/20/18 03:55 Dose: 4 unit Insulin Human Lispro (Humalog) 0 units SC .BEDTIME SLIDING SC PRN PRN Reason: Bedtime Correctional Scale Last Admin: 02/18/18 21:54 Dose: 4 unit Labetalol HCl (Normodyne) 20 mg SLOW IVP Q4H PRN PRN Reason: SBP > 180 and HR >/= 100 Last Admin: 02/20/18 10:52 Dose: 20 mg Magnesium Hydroxide (Milk Of Magnesium) 30 ml PO BIDPRN PRN PRN Reason: Constipation Miscellaneous Medication (Pharmacy To Dose) 1 each IVPB PRN PRN PRN Reason: EMPIRIC Ondansetron HCl (Zofran) 4 mg IVP Q6H PRN PRN Reason: Nausea/Vomiting
[2018-02-20 14:13] LABS: CSF, Glucose 120 mg/dl (40-70); CSF, Protein 86 mg/dL (15-40)
[2018-02-20 14:16] LABS: CSF Source CSF; Clarity Clear (Clear); RBC Count - Manual 68 /cumm (None Seen); Tube # 4; WBC/NonHematics Count - Manual 75 /cumm (0-5)
[2018-02-20] MEDS: Acyclovir Sodium 600 MG in Sodium Chloride 0.9% 100 ML IVPB SCH ×2 (14:32→21:33)
[2018-02-20 15:06] LABS: Cell Count Non Hematic 1 %; Lymphocytes 4 %; Segmented Neutrophils 95 %
--- NOTE | 2018-02-20 16:20 | RAD ---
LUMBAR PUNCTURE WITH FLUOROSCOPY: 02/20/18 HISTORY: Fever and stroke-like symptoms. COMPARISON: MRI of brain prior day. FINDINGS: Occ Ther radiograph of the lumbar spine demonstrates moderate facet arthrosis lower lumbar spine. Patient is brought to the Fluoroscopy Suite. The informed consent was already obtained. The patient's back was prepped and draped in the normal sterile fashion. The timeout was performed wi th the patient's wrist band. 2 mL lidocaine was instilled into the superficial and deep soft tissues. At the L2-3 interspace a 22 gauge spinal needle was accessed into the thecal sac. 10 mL of clear CSF was aspirated. The patient t olerated the procedure well without complication. Open pressure: 12 cm of water. IMPRESSION: Normal opening pressure with removal of 10 mL of clear CSF. Patient tolerated the procedure well with out complication. POS: [facility]
[2018-02-20] MEDS: Atorvastatin Calcium 40 MG TAB PO SCH (21:25)
[2018-02-21] MEDS: hydrALAZINE 20 MG/ML VIAL SLOW IVP PRN (00:35)
[2018-02-21] MEDS: Sodium Chloride 0.9% 1,000 ML IV SCH ×2 (02:05→23:18)
[2018-02-21] MEDS: Acyclovir Sodium 600 MG in Sodium Chloride 0.9% 100 ML IVPB SCH ×3 (06:00→23:16)
[2018-02-21] MEDS: HumaLOG 300 UNITS/3 ML VIAL SC PRN ×2 (06:09→11:51)
[2018-02-21] MEDS: Famotidine/PF 20 mg/2ml Vial SLOW IVP SCH ×2 (08:32→21:24)
[2018-02-21] MEDS: Aspirin 300 MG Suppository PR SCH (08:32)
[2018-02-21] MEDS ORDERED: PROPOFOL 200 MG/20 ML VIAL ONE (11:11)
--- NOTE | 2018-02-21 13:20 | PDOC.PN ---
- Subjective Encounter Start Date: 02/21/18 Encounter Start Time: 13:18 Subjective: no changes since yesterday.remains encephalopathic -: no overnight events - Objective MAR Reviewed: Yes Vital Signs & Weight: Vital Signs (12 hours) Temp Pulse Ox 02/21/18 12:00 100.3 F H 02/21/18 08:00 99.5 F 100 02/21/18 06:51 100 02/21/18 04:00 99.0 F Weight Admit Weight 172 lb Weight 172 lb 9.951 oz Most Recent Monitor Data Heart Rate from ECG 94 NIBP 177/92 NIBP BP-Mean 120 Respiration from ECG 21 SpO2 100 I&O: 02/20/18 02/21/18 02/22/18 06:59 06:59 06:59 Intake Total 1620.8 1708 Output Total 2580 2024 315 Balance -959.2 -317 -315 Result Diagrams: 02/20/18 03:50 02/20/18 03:50 Additional Labs: Accuchecks 02/21/18 02/21/18 02/20/18 11:50 06:08 21:49 POC Glucose 220 H 222 H 192 H 02/20/18 18:13 POC Glucose 222 H Microbiology 02/20/18 13:03 Spinal Fluid Gram Stain - Final 02/18/18 18:50 Urine tate catheter Urine Culture - Final NO GROWTH AT 48 HOURS 02/18/18 21:35 Venous blood - Right Arm Blood Culture - Preliminary NO GROWTH AT 48 HOURS 02/18/18 21:08 Venous blood - Right Arm Blood Culture - Preliminary NO GROWTH AT 48 HOURS Laboratory Tests 02/20/18 02/20/18 13:03 13:03 Fluid WBC (Manual) 75 H Fluid RBC (Manual) 68 H Fluid Seg Neutrophil % 95 H* CSF Glucose 120 H CSF Total Protein 86 H Phys Exam - Physical Examination Constitutional: NAD opens eyes and tracks only sometimes.does not follow commands HEENT: PERRLA, moist MMs, sclera anicteric, oral pharynx no lesions Neck: no nodes, no JVD, supple, full ROM Respiratory: no wheezing, no rales, no rhonchi, clear to auscultation bilateral Cardiovascular: RRR, no significant murmur Gastrointestinal: soft, non-tender, no distention, positive bowel sounds Musculoskeletal: no edema, pulses present does not move R arm,aphasia,AMS Skin: no rash Dx/Plan (1) Acute encephalopathy Code(s): G93.40 - ENCEPHALOPATHY, UNSPECIFIED Status: Acute Comment: Suspect Viral encephalitis (2) Uncontrolled hypertension Code(s): I10 - ESSENTIAL (PRIMARY) HYPERTENSION Status: Acute Comment: off of Cardene drip (3) Fever Code(s): R50.9 - FEVER, UNSPECIFIED Status: Acute (4) CAD (coronary artery disease) Code(s): I25.10 - ATHSCL HEART DISEASE OF [place] CORONARY ARTERY W/O ANG PCTRS Status: Chronic Comment: contoiniue Aspirin., BB, No chest pain but elevated troponins. Planned Nuc stress test in Am (5) DM2 (diabetes mellitus, type 2) Status: Chronic Comment: Well controlled. Continue SSI. (6) Ischemic cerebrovascular accident (CVA) Code(s): I63.9 - CEREBRAL INFARCTION, UNSPECIFIED Status: Ruled-out Comment : MRI negative for same - Plan continue antibiotics, PT/OT, DVT proph w/SCDs cont empiric Acyclovir and Keppra for encephalopathy of unclear etiology -: ? Viral encepahlitis w neutrophilic predominant CSF -: cont supportive care. able to protect airways so far -: Increase clnidine patch dose as BP better but still high -: supportive care. ? ID consult. * . Review of Systems - Review of Systems Other: can not be obatined due to encephalopathy - Medications/Allergies Allergies/Adverse Reactions: Allergies Allergy/AdvReac Type Severity Reaction Status Date / Time No Known Allergies Allergy Verified 06/20/17 23:36 Medications: Current Medications Acetaminophen (Tylenol) 650 mg UT Q4H PRN PRN Reason: Headache/Fever/Mild Pain (1-3) Last Admin: 02/20/18 07:46 Dose: 650 mg Aspirin (Aspirin) 300 mg UT DAILY IZZY Last Admin: 02/21/18 08:32 Dose: 300 mg Atorvastatin Calcium (Lipitor) 40 mg PO HS IZZY Last Admin: 02/20/18 21:25 Dose: Not Given Bisacodyl (Dulcolax) 10 mg UT DAILYPRN PRN PRN Reason: Constipation Clonidine (Fhdcdxsy-Sed-5 Patch) 0.1 mg TD Q7DAYS [facility] Last Admin: 02/20/18 10:23 Dose: 0.1 mg Dextrose/Water (Dextrose 50%) 25 gm SLOW IVP PRN PRN PRN Reason: Hypoglycemia Famotidine (Pepcid) 20 mg SLOW IVP Q12HR [facility] Last Admin: 02/21/18 08:32 Dose: 20 mg Glucagon (Glucagon) 1 mg IM PRN PRN PRN Reason: Hypoglycemia Hydralazine HCl (Apresoline) 10 mg SLOW IVP Q4H PRN PRN Reason: SBP > 180 and HR < 70 Last Admin: 02/21/18 00:35 Dose: 10 mg Dextrose/Water (D5w) 1,000 mls @ 0 mls/hr IV .Q0M PRN PRN Reason: Hypoglycemia Sodium Chloride (Normal Saline 0.9%) 1,000 mls @ 50 mls/hr IV .Q20H [facility] Last Admin: 02/21/18 02:05 Dose: 1,000 mls Levetiracetam 500 mg/ Device 100 mls @ 200 mls/hr IVPB BID [facility] Last Admin: 02/21/18 08:32 Dose: 100 mls Acyclovir Sodium 600 mg/ (Sodium Chloride) 112 mls @ 112 mls/hr IVPB Q8HR [facility] Last Admin: 02/21/18 13:03 Dose: 112 mls Insulin Human Lispro (Humalog) 0 units SC .MODERATE SLIDING SC PRN PRN Reason: Moderate Correctional Scale Last Admin: 02/21/18 11:51 Dose: 4 unit Insulin Human Lispro (Humalog) 0 units SC .BEDTIME SLIDING SC PRN PRN Reason: Bedtime Correctional Scale Last Admin: 02/18/18 21:54 Dose: 4 unit Labetalol HCl (Normodyne) 20 mg SLOW IVP Q4H PRN PRN Reason: SBP > 180 and HR >/= 100 Last Admin: 02/20/18 22:10 Dose: 20 mg Magnesium Hydroxide (Milk Of Magnesium) 30 ml PO BIDPRN PRN PRN Reason: Constipation Miscellaneous Medication (Pharmacy To Dose) 1 each IVPB PRN PRN PRN Reason: EMPIRIC Ondansetron HCl (Zofran) 4 mg IVP Q6H PRN PRN Reason: Nausea/Vomiting
[2018-02-21] MEDS ORDERED: cloNIDine 0.2mg/24 Hour PATCH TD SCH (14:00)
--- NOTE | 2018-02-21 15:38 | PRG ---
DATE OF SERVICE: 02/21/2018 SUBJECTIVE: He is attempting to be more verbal. He is still very dysarthric, not moving his right arm. OBJECTIVE: VITAL SIGNS: Blood pressure 177/92, heart rate is 94, respiratory rate is in the 20s. He is protecting his airways. LUNGS: Clear. HEART: Regular rhythm. ABDOMEN: Soft and nontender. EXTREMITIES: Without asymmetry. LABORATORY DATA: No new lab today other than blood glucoses. CSF showed 75 white cells, 68 red cells, 95% segs, 4% lymphocytes. Glucose was 120, protein was 86. IMPRESSION: Encephalitis?. He continues to have right upper extremity paresis and is dysarthric. PLAN: He will remain in the Critical Care Unit. Cultures are negative so far. His Gram stain of the spinal fluid was negative. With a normal Glucose, it is unlikely that he has bacterial process involving his brain. Critical care time is 35 minutes. [facility]
[2018-02-21] MEDS ORDERED: Lorazepam 2 MG/ML VIAL ONE (18:53)
[2018-02-21] MEDS: Midazolam HCl 2 mg/2 ml Vial ONE ×3 (19:17→19:20)
[2018-02-21 19:28] LABS: Base Excess (BEa) -4.3 mEq/L (-2.0 to +3.0); CO2 Tension 30.2 mmHg (35.0-45.0); Calcium, Ionized 1.08 mmol/L (1.12-1.30); Carboxyhemoglobin (COHb) 0.9 gm% (0.0-3.0); Hemoglobin (Hb) 13.5 g/dL (14.0-18.0); O2 Tension (PaO2) 470.2 mmHg (> 60.0); Potassium - ABG Lab 3.07 mmol/L (3.70-5.30); pH, Arterial 7.42 (7.35-7.45)
[2018-02-21] MEDS ORDERED: Propofol 1,000 MG/100 ML VIAL IV ONE (19:28)
[2018-02-21 19:31] LABS: Puncture Site LRAD
--- NOTE | 2018-02-21 20:25 | RAD ---
ONE VIEW CHEST: Comparison: 02-18-18 History: Ventilated patient. Intubation. Respiratory distress. FINDINGS: Endotracheal tube terminates approximately 2.4 cm above the enrique. Nasogastric tube extends beyond t he diaphragm. Distal tip is not seen. Normal cardiac silhouette. The pulmonary vessels are within nor mal limits. Costophrenic angles are clear. No mass. No consolidation. No pneumothorax or osseous abno rmalities. IMPRESSION: Endotracheal tube and nasogastric tube as above. POS: [facility]
[2018-02-21] MEDS ORDERED: fentaNYL Citrate/PF 2,000 MCG in Sodium Chloride 0.9% 60 ML IV SCH (20:29)
[2018-02-21] MEDS ORDERED: DISCONTINUE PREVIOUS NARCOTIC PAIN MEDICATIONS AND BENZODIAZEPINES FS SCH (20:29)
[2018-02-21] MEDS ORDERED: Fentanyl BOLUS 250 ML IVPB PRN (20:29)
[2018-02-21] MEDS ORDERED: Morphine 2 MG/ML SYRINGE SLOW IVP PRN (20:29)
[2018-02-21] MEDS ORDERED: Lorazepam 2 MG/ML VIAL SLOW IVP PRN (20:29)
[2018-02-21] MEDS ORDERED: Propofol BOLUS 1,000 MG/100 ML VIAL IV PRN (20:29)
[2018-02-21] MEDS: Atorvastatin Calcium 40 MG TAB PO SCH (21:24)
[2018-02-21] MEDS ORDERED: levETIRAcetam In NaCl (Iso-Os) 1,000 MG in Premix Bag 1 BAG IVPB SCH (21:45)
--- NOTE | 2018-02-21 22:38 | PRG ---
DATE OF SERVICE: 02/21/2018 SUBJECTIVE: Mr. Blake developed some changes in mental status and exam. This was followed by tonic-clonic generalized seizures. He was given Ativan. I was contacted at the initiation of this event. I recommended intubation, anticipating that he would need Ativan and would have difficulty protecting his airway. This has been done by the emergency room physician. He received long-acting paralytics. I cannot really at this time determine whether or not the seizures have resolved. OBJECTIVE: His pupils are sluggish . He is chemically paralyzed. Remainder of his exam is essentially unchanged. IMPRESSION: Encephalitis now with generalized seizure activity. The difficult situation that we are facing is that we will know whether he has been intermittently seizing on a low-grade level in the entire admission. We do not have EEG capability on a holiday weekend. He really truly should be transferred out, but we will have an EEG in the morning, so we will just discuss the change in seizure drugs. Keep Ativan available. Keep him mechanically ventilated for now. We will start him on a propofol drip. Critical care time is 35 minutes. MICHELLE
[2018-02-22] MEDS: Acyclovir Sodium 600 MG in Sodium Chloride 0.9% 100 ML IVPB SCH ×3 (05:09→21:22)
[2018-02-22] MEDS: Propofol 1,000 MG/100 ML VIAL IV PRN ×3 (05:47→21:21)
[2018-02-22 07:27] LABS: Actual Bicarbonate (HCO3a) 21.8 mEq/L (22-28); CO2 Tension 27.8 mmHg (35.0-45.0); Carboxyhemoglobin (COHb) 1.1 gm% (0.0-3.0); Hemoglobin (Hb) 12.9 g/dL (14.0-18.0); O2 Tension (PaO2) 92.7 mmHg (> 60.0); Potassium - ABG Lab 3.01 mmol/L (3.70-5.30); pH, Arterial 7.51 (7.35-7.45)
[2018-02-22 07:29] LABS: Puncture Site LRA
[2018-02-22] MEDS ORDERED: Metoclopramide HCl 10 MG/2 ML VIAL IVP PRN (08:35)
[2018-02-22] MEDS: Aspirin 300 MG Suppository PR SCH (09:35)
[2018-02-22] MEDS: Famotidine/PF 20 mg/2ml Vial SLOW IVP SCH ×2 (09:35→21:22)
[2018-02-22] MEDS: levETIRAcetam In NaCl (Iso-Os) 1,000 MG in Premix Bag 1 BAG IVPB SCH ×2 (09:40→21:22)
[2018-02-22] MEDS: HumaLOG 300 UNITS/3 ML VIAL SC PRN ×2 (11:10→16:15)
--- NOTE | 2018-02-22 11:22 | PRG ---
DATE OF SERVICE: 02/22/2018 SUBJECTIVE: Mr. Muñiz remains sedated on propofol for mechanical ventilation. With propofol, he has not had any further seizures. An EEG was ordered this morning. OBEJCTIVE: VITAL SIGNS: Blood pressure is 102/48, heart rate is 88, respiratory rate is 12. LUNGS: Clear. HEART: Regular rhythm. ABDOMEN: Soft. LABORATORY DATA: There is no new lab today. IMPRESSION: Respiratory failure associated with seizures, associated most likely with encephalitis. The neutrophil predominance would argue against this being viral, but above case is unusual. I supp ose this could be paraneoplastic, but again with a normal MRI, this becomes unlikely. He needs lab every day while he is ventilated in my opinion as well as chest radiograph. The decision whether or not to adjust his medications for seizures will be made by Neurology. It is unclear what his prognosis is at this time, but we will continue in an aggressive fashion. Critical care time, 30 minutes.
--- NOTE | 2018-02-22 11:30 | PDOC.PN ---
- Subjective Encounter Start Date: 02/22/18 Encounter Start Time: 11:29 Subjective: had seizures last eveneing & requeired intubation for airway preotection -: EEG getting done this morning - Objective MAR Reviewed: Yes Vital Signs & Weight: Vital Signs (12 hours) Temp Pulse Resp BP Pulse Ox 02/22/18 10:47 91 161/81 H 02/22/18 10:00 12 02/22/18 08:00 12 99 02/22/18 07:13 98 110/68 02/22/18 07:00 98.3 F 02/22/18 05:45 16 02/22/18 04:00 99.0 F 16 02/22/18 02:21 90 02/22/18 02:00 16 02/22/18 00:00 98.8 F 16 Weight Admit Weight 172 lb Weight 173 lb 4.533 oz Most Recent Monitor Data Heart Rate from ECG 91 NIBP 161/81 NIBP BP-Mean 107 Respiration from ECG 12 SpO2 100 I&O: 02/21/18 02/22/18 02/23/18 06:59 06:59 06:59 Intake Total 1708 2003 100 Output Total 2024 1775 180 Balance -317 229 -80 Result Diagrams: 02/20/18 03:50 02/20/18 03:50 Additional Labs: Accuchecks 02/22/18 02/22/18 02/21/18 10:50 05:04 21:52 POC Glucose 202 H 200 H 220 H 02/21/18 02/21/18 02/21/18 19:04 17:31 11:50 POC Glucose 181 H 131 H 220 H Microbiology 02/21/18 12:15 Spinal Fluid Culture Cryptococcal Antigen - Final 02/20/18 13:03 Spinal Fluid Gram Stain - Final 02/18/18 18:50 Urine tate catheter Urine Culture - Final NO GROWTH AT 48 HOURS 02/18/18 21:35 Venous blood - Right Arm Blood Culture - Preliminary NO GROWTH AT 48 HOURS 02/18/18 21:08 Venous blood - Right Arm Blood Culture - Preliminary NO GROWTH AT 48 HOURS Phys Exam - Physical Examination Constitutional: NAD intubated.huge output from NG tube HEENT: PERRLA, moist MMs ETT Neck: no nodes, no JVD Respiratory: no wheezing, no rales, no rhonchi Cardiovascular: RRR, no significant murmur Gastrointestinal: soft, no distention, positive bowel sounds Musculoskeletal: no edema, pulses present continuous movememnts of Left arm and leg,like myoclonus Skin: no rash Dx/Plan (1) Seizure Code(s): R56.9 - UNSPECIFIED CONVULSIONS Status: Acute (2) Acute encephalopathy Code(s): G93.40 - ENCEPHALOPATHY, UNSPECIFIED Status: Acute Comment: Suspect Viral encephalitis (3) Uncontrolled hypertension Code(s): I10 - ESSENTIAL (PRIMARY) HYPERTENSION Status: Acute Comment: off of Cardene drip (4) Fever Code(s): R50.9 - FEVER, UNSPECIFIED Status: Acute (5) CAD (coronary artery disease) Code(s): I25.10 - ATHSCL HEART DISEASE OF [place] CORONARY ARTERY W/O ANG PCTRS Status: Chronic Comment: contoiniue Aspirin., BB, No chest pain but elevated troponins. Planned Nuc stress test in Am (6) DM2 (diabetes mellitus, type 2) Status: Chronic Comment: Well controlled. Continue SSI. (7) Ischemic cerebrovascular accident (CVA) Code(s): I63.9 - CEREBRAL INFARCTION, UNSPECIFIED Status: Ruled-out Comment : MRI negative for same - Plan continue antibiotics, respiratory therapy, DVT proph w/SCDs cont supportive care as no clear etiology evident of encephalopathy/itis -: cont Keppra and acyclovir as below. -: EEG done .follow results -: neurology following. will consult ID as CSF picture confusing -: Cont Vent support.hold feeds as gastric output is too much * .am labs Review of Systems - Review of Systems Other: can not be obtained as he is intubated and sedated - Medications/Allergies Allergies/Adverse Reactions: Allergies Allergy/AdvReac Type Severity Reaction Status Date / Time No Known Allergies Allergy Verified 06/20/17 23:36 Medications: Current Medications Acetaminophen (Tylenol) 650 mg IN Q4H PRN PRN Reason: Headache/Fever/Mild Pain (1-3) Last Admin: 02/20/18 07:46 Dose: 650 mg Aspirin (Aspirin) 300 mg IN DAILY IZZY Last Admin: 02/22/18 09:35 Dose: 300 mg Atorvastatin Calcium (Lipitor) 40 mg PO HS IZZY Last Admin: 02/21/18 21:24 Dose: Not Given Bisacodyl (Dulcolax) 10 mg IN DAILYPRN PRN PRN Reason: Constipation Clonidine (Oxyhsilt-Uiv-8) 0.2 mg TD Q7D [facility] Last Admin: 02/21/18 13:59 Dose: 0.2 mg Dextrose/Water (Dextrose 50%) 25 gm SLOW IVP PRN PRN PRN Reason: Hypoglycemia Famotidine (Pepcid) 20 mg SLOW IVP Q12HR [facility] Last Admin: 02/22/18 09:35 Dose: 20 mg Glucagon (Glucagon) 1 mg IM PRN PRN PRN Reason: Hypoglycemia Hydralazine HCl (Apresoline) 10 mg SLOW IVP Q4H PRN PRN Reason: SBP > 180 and HR < 70 Last Admin: 02/21/18 00:35 Dose: 10 mg Dextrose/Water (D5w) 1,000 mls @ 0 mls/hr IV .Q0M PRN PRN Reason: Hypoglycemia Sodium Chloride (Normal Saline 0.9%) 1,000 mls @ 50 mls/hr IV .Q20H [facility] Last Admin: 02/21/18 23:18 Dose: 1,000 mls Acyclovir Sodium 600 mg/ (Sodium Chloride) 112 mls @ 112 mls/hr IVPB Q8HR [facility] Last Admin: 02/22/18 05:09 Dose: 112 mls Fentanyl Citrate 2,000 mcg/ (Sodium Chloride) 100 mls @ 0 mls/hr IV INF IZZY; Protocol Stop: 03/23/18 20:29 Fentanyl Citrate (Fentanyl Bolus) 250 mls @ 0 mls/hr IVPB PRN PRN PRN Reason: Breakthrough pain/agitation Stop: 03/23/18 20:29 Levetiracetam 1,000 mg/ Device 100 mls @ 200 mls/hr IVPB Q12HR [facility] Last Admin: 02/22/18 09:40 Dose: 100 mls Insulin Human Lispro (Humalog) 0 units SC .MODERATE SLIDING SC PRN PRN Reason: Moderate Correctional Scale Last Admin: 02/22/18 11:10 Dose: 4 unit Insulin Human Lispro (Humalog) 0 units SC .BEDTIME SLIDING SC PRN PRN Reason: Bedtime Correctional Scale Last Admin: 02/18/18 21:54 Dose: 4 unit Labetalol HCl (Normodyne) 20 mg SLOW IVP Q4H PRN PRN Reason: SBP > 180 and HR >/= 100 Last Admin: 02/20/18 22:10 Dose: 20 mg Lorazepam (Ativan) 2 mg SLOW IVP Q1H PRN PRN Reason: Breakthrough agitation Stop: 03/23/18 20:29 Magnesium Hydroxide (Milk Of Magnesium) 30 ml PO BIDPRN PRN PRN Reason: Constipation Metoclopramide HCl (Reglan) 10 mg IVP Q6H PRN PRN Reason: Nausea/Vomiting Morphine Sulfate (Morphine) 2 mg SLOW IVP Q1H PRN PRN Reason: BREAKTHROUGH PAIN/Agitation Stop: 03/23/18 20:29 Discontinue Previous Narcotic Pain Medications And Benzodiazepines 1 each FS .ONE IZZY Stop: 03/23/18 20:29 Ondansetron HCl (Zofran) 4 mg IVP Q6H PRN PRN Reason: Nausea/Vomiting Propofol (Diprivan) 1,000 mg IV INF PRN; Protocol PRN Reason: TO ACHIEVE GOAL RASS Stop: 03/23/18 20:29 Last Admin: 02/22/18 05:47 Dose: 1,000 mg Propofol (Diprivan Bolus) 20 mg IV Q5MIN PRN PRN Reason: BREAKTHROUGH AGITATION Stop: 03/23/18 20:29
--- NOTE | 2018-02-22 13:40 | CON ---
DATE OF CONSULTATION: 02/22/2018 REASON FOR CONSULTATION: Possible encephalitis. HISTORY OF PRESENT ILLNESS: An 83-year-old patient who has a history of prior TIAs, hypertension with hypertensive urgency and coronary artery disease as well as type 2 diabetes who had been admitted in 06/23 to [facility] with left-sided weakness and slurred speech. TPA was not administered because the family declined TPA. CT of the head did not show any acute abnormalities and Dr. Adair saw the patient and felt that most likely he suffered a TIA. The patient was discharged with Zocor, nifedipine, Plavix and aspirin. In 11/23, he presented with right-sided headaches and neck pain. A CT scan was not remarkable. Chest x-ray showed cardiomegaly. An MRI of the head was done which was normal. Neurology consulted and no new recommendations were made at that time. This time, he presented with right-sided weakness and facial weakness as well. On arrival to the emergency room, he had altered mental status. Apparently, he had been found in the bathtub by family members. He was not able to communicate verbally. A CT scan was done in the emergency room in [place], which did not show any abnormalities. Blood pressure was 210/130. He also had a CT angio which did not show any obvious occlusions. He had sinus tachycardia, was given labetalol and Ativan and then nicardipine drip and air lifted to the emergency room. In the emergency room, he received TPA. After the TPA, he had some right leg movement noticed, did not move his right arm. He was admitted to the CCU. Initial vital signs at the emergency room on admission showed a BP 210/130 and then 140/80, pulse 120, respirations 26. The patient was fidgety and kept his head rotated to the left side. The initial values in the laboratory data showed a WBC count 13.6, hemoglobin 13.4, MCV 83, platelets 104 with 41% neutrophils, 52% lymphocytes. The pH 7.4, pCO2 of 30, pO2 of 470 and the chemistry showed a creatinine 0.98, sodium 139, carbon dioxide 22, and glucose 229 with a CK of 402. Urinalysis with protein 100, greater than 1000 glucose. RBCs 7-10, WBCs 0-3. The patient had a brain MRI done on 02/19/2018 which showed no evidence restricted diffusion, there were foci of T2 prolongation of the periventricular white matter consistent with chronic small vessel ischemic disease. The next day, patient had lumbosacral spinal tap. CSF with 75 WBCs, 68 RBCs, and 95% neutrophils, 4% lymphocytes. Glucose 120 and total protein was 86. Patient required intubation for airway protection. He is currently does not interact with examiner. He opens his eyes intermittently, does not follow commands. He is not moving his right side at all. He does have movements on the left side which are spontaneous yesterday. He did have a tonic clonic seizure activity. An EEG today does not show any evidence of seizures in the tracing thus far. The patient had temperature elevation up to 103.3 on arrival, and he seems to have defervescence. 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 PAST SURGICAL HISTORY: As above. ALLERGIES: None. FAMILY HISTORY: Noncontributory. SOCIAL HISTORY: Current smoker, no drug use otherwise. CURRENT MEDICATION: List includes Tylenol, acyclovir, aspirin, Lipitor, Dulcolax, Catapres, dextrose, Pepcid, fentanyl, glucagon, Apresoline, insulin, Normodyne, Keppra, Ativan, morphine, Zofran, propofol. PHYSICAL EXAMINATION: VITAL SIGNS: He had a temperature elevation up to 103 on 02/19/2018 and seems to have defervesced, the latest temperature is 98.3. His blood pressure 160/81 , pulse 91, respiratory rate 12, O2 saturations 100% with 40% FiO2 and PEEP of 5. Urinary output is ranging from 1100-2 2000 per day. He was slightly positive and slightly negative for the past 3 days and he has an indwelling Frankel catheter. SKIN: The skin shows no areas of skin breakdown. He has no lymphadenopathy. HEENT: Pupils are about 2 mm. He has a left gaze preference without nystagmus. He keeps his head turned to the left side. Oral tracheal intubation. NECK: No jugular vein distention. LUNGS: With symmetric air entry. HEART: S1, S2, regular rate. No crackles or wheezing. No obvious murmurs. ABDOMEN: Soft, not distended, some bilious drainage in the NG tube. GENITAL: Appeared normal except for Frankel catheter. No evidence of ascites or bladder distention, no organomegaly. EXTREMITIES: No joint inflammatory activity. Pulses are diminished in dorsalis pedis. I could not get any movements on the right side. He does have flexion and the plantar response on the left side. He does have some spontaneous movements in the left side as well both upper and lower extremities. NEUROLOGIC: He is nonresponsive. He does not interact with examiner. LABORATORY: The followup labs, we do not have any followup CBC and we do not have follow up chemistry either. Microbiology: We have negative cryptococcus antigen in the CSF. Number of assays and the CSF have been submitted and those are send outs, so there is going to be some time for the result. I believe the herpes simplex PCR, they are doing in house now, so should have the results pretty soon. ASSESSMENT AND PLAN: History of diabetes type 2, coronary artery disease, and prior transient ischemic attacks, now with a dense right hemiparesis, right- sided neglect and gaze preference to the left with a negative MRI and mild to moderate pleocytosis in the CSF. DISCUSSION: Differential diagnosis includes acute cerebrovascular event which was not detected by the early MRI. A repeat MRI may demonstrate areas of infarction in the right MCA distribution area. Another possibility would be encephalitis. Encephalitides can be associated with hemiparesis of this degree usually secondary to infarcts since sometime forms of encephalitis can be associated with CVAs due to vasculitis, particularly varicella zoster encephalitis, but also herpes simplex and others. Fungal or bacterial process is much less likely and I think it has been effectively ruled out. Acyclovir has been started and we will continue that until we have results of the herpes simplex DNA/PCR assays for his varicella zoster virus, enterovirus, respiratory viral pathogens and West Nile will be submitted. Arthropod-borne encephalitides is less likely since mosquito activity in this season is much less. Vasculitis would be another possibility, but I believe that a regular thrombotic CVA or embolic CVA is the most likely scenario here and repeat MRI might demonstrate now the areas of infarction. MICHELLE
[2018-02-22 20:08] LABS: HSV 2 - DNA Negative (Negative)
[2018-02-22] MEDS: Sodium Chloride 0.9% 1,000 ML IV SCH (21:21)
[2018-02-22] MEDS: Atorvastatin Calcium 40 MG TAB PO SCH (21:22)
[2018-02-23] MEDS: Propofol 1,000 MG/100 ML VIAL IV PRN ×3 (03:57→21:28)
[2018-02-23 05:11] LABS: Anion Gap 16 mmol/L (10-20); BUN (Urea Nitrogen) 25 mg/dL (8.4-25.7); Calc. Creatinine Clearance 42 mL/min (70-130); Calcium 8.3 mg/dL (7.8-10.44); Carbon Dioxide 21 mmol/L (23-31); Chloride 108 mmol/L (98-107); Estimated GFR-MDRD 57; Glucose 239 mg/dL (83-110); Potassium 3.4 mmol/L (3.5-5.1); Sodium 142 mmol/L (136-145)
[2018-02-23 05:27] LABS: Band 24 % (5-11); Hemoglobin 12.4 g/dL (14.0-18.0); Lymphocytes 33 % (21-51); MDiff Complete? YES; Mean Corpuscular HGB CONC 31.9 g/dL (32.0-36.0); Mean Corpuscular Hemoglobin 26.8 pg (27.0-31.0); Mean Corpuscular Volume 84.1 fL (78.0-98.0); Mean Platelet Volume 11.3 fL (7.4-10.4); Monocytes 6 % (0-10); Neutrophil 36 % (42-75); PLT Morphology Comment Appears Decreased; Platelet Count 115 thou/uL (130-400); RBC Distribution Width 13.1 % (11.5-14.5); Reactive Lymphocytes 1 % (0-10); Red Blood Cell (RBC) Count 4.63 mill/uL (4.70-6.10); White Blood Cell (WBC) Count 15.3 thou/uL (4.8-10.8)
[2018-02-23 05:41] LABS: Band 22 % (5-11); Eosinophils 1 % (0-10); Hemoglobin 12.4 g/dL (14.0-18.0); Lymphocytes 30 % (21-51); MDiff Complete? YES; Mean Corpuscular HGB CONC 31.8 g/dL (32.0-36.0); Mean Corpuscular Hemoglobin 26.6 pg (27.0-31.0); Mean Corpuscular Volume 83.7 fL (78.0-98.0); Mean Platelet Volume 11.2 fL (7.4-10.4); Monocytes 6 % (0-10); Neutrophil 41 % (42-75); Platelet Count 114 thou/uL (130-400); Red Blood Cell (RBC) Count 4.66 mill/uL (4.70-6.10); White Blood Cell (WBC) Count 15.5 thou/uL (4.8-10.8)
[2018-02-23] MEDS: Acyclovir Sodium 600 MG in Sodium Chloride 0.9% 100 ML IVPB SCH ×3 (06:03→21:28)
[2018-02-23] MEDS: HumaLOG 300 UNITS/3 ML VIAL SC PRN ×4 (06:10→21:29)
[2018-02-23 07:12] LABS: Actual Bicarbonate (HCO3a) 21.2 mEq/L (22-28); Base Excess (BEa) -2.1 mEq/L (-2.0 to +3.0); CO2 Tension 31.9 mmHg (35.0-45.0); Calcium, Ionized 1.14 mmol/L (1.12-1.30); Carboxyhemoglobin (COHb) 1.4 gm% (0.0-3.0); Hemoglobin (Hb) 12.7 g/dL (14.0-18.0); Potassium - ABG Lab 3.05 mmol/L (3.70-5.30); pH, Arterial 7.44 (7.35-7.45)
[2018-02-23 07:15] LABS: O2 Tension (PaO2) 53.6 mmHg (> 60.0)
[2018-02-23 07:17] LABS: ALV-art Gradient 56.255 (0-20); Puncture Site LRA
--- NOTE | 2018-02-23 09:28 | RAD ---
SINGLE VIEW OF THE CHEST: Comparison: 02-22-18 History: Ventilated patient with respiratory failure. FINDINGS: Single view of the chest shows an enlarged but stable cardiomediastinal silhouette. The lines and tub es are unchanged in position. The patient is status post sternotomy. There is no evidence of consolid ation, mass, or pleural effusion. IMPRESSION: Stable exam. POS: [facility]
[2018-02-23] MEDS ORDERED: Potassium Chloride 40 MEQ in Premix Bag 1 BAG IVPB SCH (09:30)
--- NOTE | 2018-02-23 09:34 | EEG ---
Referring Physician: Ahn OBRIEN EEG # [id number] TEST TYPE: ROUTINE PORTABLE INPATIENT REPORT: AN EEG USING THE [employer]NATIONAL TEN-TWENTY SYSTEM OF ELECTRODE PLACEMENT WAS PERFORMED. The waking background is an 8 hertz occipitally dominant alpha frequency. Some drowsiness was seen but no epileptiform features were present. Photic stimulation was unremarkable. IMPRESSION: THIS IS A NORMAL APPEARING AWAKE AND DROWSY EEG. Level Glass Vial Filler: JOSE FRANCISCO Equipment Planner: EEG.SHEILA MARTINEZ
[2018-02-23] MEDS: Aspirin 300 MG Suppository PR SCH (09:35)
[2018-02-23] MEDS: levETIRAcetam In NaCl (Iso-Os) 1,000 MG in Premix Bag 1 BAG IVPB SCH ×2 (09:35→21:27)
[2018-02-23] MEDS: Famotidine/PF 20 mg/2ml Vial SLOW IVP SCH ×2 (09:35→21:26)
[2018-02-23] MEDS ORDERED: Gadobenate Dimeglumine 529 MG/1 ML (20ML VIAL) ONE (12:06)
--- NOTE | 2018-02-23 14:52 | PDOC.PN ---
- Subjective Encounter Start Date: 02/23/18 Encounter Start Time: 14:52 Subjective: repeat MRI today. seen moving R arm better -: no change sotherwise.intubated and sedated - Objective MAR Reviewed: Yes Vital Signs & Weight: Vital Signs (12 hours) Temp Pulse Resp BP Pulse Ox 02/23/18 14:00 13 02/23/18 12:00 21 H 02/23/18 11:00 98.8 F 02/23/18 10:01 104 H 96/65 02/23/18 10:00 21 H 02/23/18 08:00 20 99 02/23/18 07:03 110 H 99/54 L 02/23/18 07:00 98.7 F 02/23/18 06:00 20 02/23/18 04:00 100.9 F H 15 Weight Admit Weight 172 lb Weight 174 lb 6.17 oz Most Recent Monitor Data Heart Rate from ECG 106 NIBP 125/65 NIBP BP-Mean 85 Respiration from ECG 24 SpO2 98 I&O: 02/22/18 02/23/18 02/24/18 06:59 06:59 06:59 Intake Total 2003 2501 Output Total 1775 972 260 Balance 229 1529 -260 Result Diagrams: 02/23/18 03:38 02/23/18 03:38 Additional Labs: Accuchecks 02/23/18 02/23/18 02/22/18 11:54 06:09 21:16 POC Glucose 207 H 272 H 183 H 02/22/18 16:12 POC Glucose 196 H Microbiology 02/22/18 14:10 Nasopharyngeal swab Respiratory Virus Panel (PCR) - Final 02/21/18 12:15 Spinal Fluid Culture Cryptococcal Antigen - Final 02/20/18 13:03 Spinal Fluid Gram Stain - Final 02/18/18 18:50 Urine tate catheter Urine Culture - Final NO GROWTH AT 48 HOURS 02/18/18 21:35 Venous blood - Right Arm Blood Culture - Preliminary NO GROWTH AT 48 HOURS 02/18/18 21:08 Venous blood - Right Arm Blood Culture - Preliminary NO GROWTH AT 48 HOURS Laboratory Tests 02/20/18 02/20/18 02/20/18 03:50 12:15 13:03 Creatinine 0.98 HSV I DNA PCR Negative HSV II DNA PCR Negative VZV IgM Antibody 1.14 H 11/27/18 03:38 Creatinine 1.42 H HSV I DNA PCR HSV II DNA PCR VZV IgM Antibody Phys Exam - Physical Examination Constitutional: NAD HEENT: moist MMs, sclera anicteric, oral pharynx no lesions ETT Neck: no nodes, no JVD Respiratory: no wheezing, no rales, no rhonchi Cardiovascular: RRR, no significant murmur Gastrointestinal: soft, no distention, positive bowel sounds Musculoskeletal: no edema, pulses present limited due to sedation Deviation from normal: sedated Skin: no rash Dx/Plan (1) Seizure Code(s): R56.9 - UNSPECIFIED CONVULSIONS Status: Acute (2) Acute encephalopathy Code(s): G93.40 - ENCEPHALOPATHY, UNSPECIFIED Status: Acute Comment: Suspect Viral encephalitis (3) Uncontrolled hypertension Code(s): I10 - ESSENTIAL (PRIMARY) HYPERTENSION Status: Acute Comment: off of Cardene drip (4) Fever Code(s): R50.9 - FEVER, UNSPECIFIED Status: Acute (5) CAD (coronary artery disease) Code(s): I25.10 - ATHSCL HEART DISEASE OF [place] CORONARY ARTERY W/O ANG PCTRS Status: Chronic Comment: contoiniue Aspirin., BB, No chest pain but elevated troponins. Planned Nuc stress test in Am (6) DM2 (diabetes mellitus, type 2) Status: Chronic Comment: Well controlled. Continue SSI. (7) Ischemic cerebrovascular accident (CVA) Code(s): I63.9 - CEREBRAL INFARCTION, UNSPECIFIED Status: Ruled-out Comment : MRI negative for same.repeat MRI done-results pending - Plan continue antibiotics, PT/OT, respiratory therapy, DVT proph w/SCDs VZ IgM mildly +ve.on accylovir.HSV negative PCR -: cont keppra. EEG without epileptiform waves -: Vent support per [facility]. -: unclear etiology.will follow MRI results as Presentation very suggestive of -: CVA. HD stable.cont meds as below * . Review of Systems - Review of Systems Other: can not be obtained due to sedation - Medications/Allergies Allergies/Adverse Reactions: Allergies Allergy/AdvReac Type Severity Reaction Status Date / Time No Known Allergies Allergy Verified 06/20/17 23:36 Medications: Current Medications Acetaminophen (Tylenol) 650 mg [place] Q4H PRN PRN Reason: Headache/Fever/Mild Pain (1-3) Last Admin: 11/24/18 07:46 Dose: 650 mg Aspirin (Aspirin) 300 mg OH DAILY [facility] Last Admin: 02/23/18 09:35 Dose: 300 mg Atorvastatin Calcium (Lipitor) 40 mg PO HS [facility] Last Admin: 02/22/18 21:22 Dose: 40 mg Bisacodyl (Dulcolax) 10 mg [place] DAILYPRN PRN PRN Reason: Constipation Dextrose/Water (Dextrose 50%) 25 gm SLOW IVP PRN PRN PRN Reason: Hypoglycemia Famotidine (Pepcid) 20 mg SLOW IVP Q12HR [facility] Last Admin: 02/23/18 09:35 Dose: 20 mg Glucagon (Glucagon) 1 mg IM PRN PRN PRN Reason: Hypoglycemia Heparin Sodium (Porcine) (Heparin) 5,000 units SC BID [facility] Hydralazine HCl (Apresoline) 10 mg SLOW IVP Q4H PRN PRN Reason: SBP > 180 and HR < 70 Last Admin: 02/21/18 00:35 Dose: 10 mg Dextrose/Water (D5w) 1,000 mls @ 0 mls/hr IV .Q0M PRN PRN Reason: Hypoglycemia Sodium Chloride (Normal Saline 0.9%) 1,000 mls @ 50 mls/hr IV .Q20H [facility] Last Admin: 02/22/18 21:21 Dose: 1,000 mls Acyclovir Sodium 600 mg/ (Sodium Chloride) 112 mls @ 112 mls/hr IVPB Q8HR [facility] Last Admin: 02/23/18 13:47 Dose: 112 mls Fentanyl Citrate 2,000 mcg/ (Sodium Chloride) 100 mls @ 0 mls/hr IV INF IZZY; Protocol Stop: 03/23/18 20:29 Fentanyl Citrate (Fentanyl Bolus) 250 mls @ 0 mls/hr IVPB PRN PRN PRN Reason: Breakthrough pain/agitation Stop: 03/23/18 20:29 Levetiracetam 1,000 mg/ Device 100 mls @ 200 mls/hr IVPB Q12HR [facility] Last Admin: 02/23/18 09:35 Dose: 100 mls Insulin Human Lispro (Humalog) 0 units SC .MODERATE SLIDING SC PRN PRN Reason: Moderate Correctional Scale Last Admin: 02/23/18 11:55 Dose: 4 unit Insulin Human Lispro (Humalog) 0 units SC .BEDTIME SLIDING SC PRN PRN Reason: Bedtime Correctional Scale Last Admin: 02/18/18 21:54 Dose: 4 unit Labetalol HCl (Normodyne) 20 mg SLOW IVP Q4H PRN PRN Reason: SBP > 180 and HR >/= 100 Last Admin: 02/20/18 22:10 Dose: 20 mg Lorazepam (Ativan) 2 mg SLOW IVP Q1H PRN PRN Reason: Breakthrough agitation Stop: 03/23/18 20:29 Last Admin: 02/23/18 09:55 Dose: 2 mg Magnesium Hydroxide (Milk Of Magnesium) 30 ml PO BIDPRN PRN PRN Reason: Constipation Metoclopramide HCl (Reglan) 10 mg IVP Q6H PRN PRN Reason: Nausea/Vomiting Morphine Sulfate (Morphine) 2 mg SLOW IVP Q1H PRN PRN Reason: BREAKTHROUGH PAIN/Agitation Stop: 03/23/18 20:29 Discontinue Previous Narcotic Pain Medications And Benzodiazepines 1 each FS .ONE IZZY Stop: 03/23/18 20:29 Ondansetron HCl (Zofran) 4 mg IVP Q6H PRN PRN Reason: Nausea/Vomiting Propofol (Diprivan) 1,000 mg IV INF PRN; Protocol PRN Reason: TO ACHIEVE GOAL RASS Stop: 03/23/18 20:29 Last Admin: 02/23/18 13:21 Dose: 1,000 mg Propofol (Diprivan Bolus) 20 mg IV Q5MIN PRN PRN Reason: BREAKTHROUGH AGITATION Stop: 03/23/18 20:29
--- NOTE | 2018-02-23 16:15 | MRI ---
MRI OF BRAIN WITH AND WITHOUT CONTRAST 02/23/18 INDICATION: Right upper extremity paralysis with seizures. Clinical concern for encephalitis. COMPARISON: 02/19/18 brain MRI. FINDINGS: There is normal sized ventricular system. No midline shift or acute territorial infarction. No pathol ogic intra-axial enhancement. There are bilateral CSF signal intensity collections overlying each ant erior cerebral convexity without significant mass effect. No evidence of pathologic dural enhancement . The skull base flow voids are maintained. There are scattered areas of fluid signal and mucosal inf lammation of the paranasal sinuses. [place] intraocular lenses are absent. No hemorrhagic susceptibili ty. There is chronic microvascular ischemic disease. IMPRESSION: No acute territorial infarction or acute intracranial mass effect. CSF signal intensity collections overlying the anterior hemispheres bilaterally, which may relate to subdural hygroma versus chronic subdural hematoma formation. No associated pachymeningeal enhancement . POS: GLORIA
[2018-02-23] MEDS: Sodium Chloride 0.9% 1,000 ML IV SCH (16:50)
--- NOTE | 2018-02-23 18:27 | PRG ---
DATE OF SERVICE: 02/23/2018 SUBJECTIVE: The patient is still being kept sedated. He seems to be moving a little bit more his right side than before. OBJECTIVE: VITAL SIGNS: T-max is 100.9. Other vital signs are unremarkable. HEENT: I do not see any tonic deviation of his head or eyes at this time. No nystagmus. LUNGS: Symmetric air entry. HEART: S1, S2. Regular rate. ABDOMEN: Soft. SKIN: The lines are the same as previously. Still orotracheally intubated. LABORATORY DATA: White cell count 15.5, hemoglobin 12.4, and platelets. Creatinine 1.42. The herpes simplex DNA PCR was negative, done here in the hospital. VZV IgM is borderline positive. Brain MRI showed normal sized ventricular system. No acute infarction noted. Bilateral CSF signal intensity collections overlying each anterior cerebral convexity without mass effect. No dural enhancement. Mucosal inflammation of the paranasal sinuses noted. Chronic subdural hematoma was considered, but no pachymeningeal enhancement is noted. Respiratory virus PCR panel was negative. ASSESSMENT AND DISCUSSION: 1. Type 2 diabetes. 2. Coronary artery disease. 3. Prior transient ischemic attacks, dense hemiparesis, right-sided neglect and gaze preference with negative MRI x2. Moderate pleocytosis in CSF. Possibility of encephalitis vs ischemia with seizures as post-ictal phenomena in view of the above findings. Wait on all the other assays. Continue acyclovir. Job ID: [id number] MTDD
[2018-02-23] MEDS: Atorvastatin Calcium 40 MG TAB PO SCH (21:26)
[2018-02-23] MEDS: Heparin 5,000 UNITS/ML VIAL SC SCH (21:31)
[2018-02-24 04:07] LABS: Anion Gap 15 mmol/L (10-20); BUN (Urea Nitrogen) 23 mg/dL (8.4-25.7); Calc. Creatinine Clearance 42 mL/min (70-130); Calcium 8.5 mg/dL (7.8-10.44); Carbon Dioxide 20 mmol/L (23-31); Chloride 112 mmol/L (98-107); Estimated GFR-MDRD 57; Glucose 229 mg/dL (83-110); Potassium 3.6 mmol/L (3.5-5.1); Sodium 143 mmol/L (136-145)
[2018-02-24 04:25] LABS: Band 14 % (5-11); Hemoglobin 12.5 g/dL (14.0-18.0); Lymphocytes 29 % (21-51); MDiff Complete? YES; Mean Corpuscular HGB CONC 32.7 g/dL (32.0-36.0); Mean Corpuscular Hemoglobin 27.7 pg (27.0-31.0); Mean Corpuscular Volume 84.6 fL (78.0-98.0); Monocytes 4 % (0-10); Neutrophil 53 % (42-75); PLT Morphology Comment Appears Decreased; Platelet Count 103 thou/uL (130-400); RBC Distribution Width 13.2 % (11.5-14.5); Red Blood Cell (RBC) Count 4.53 mill/uL (4.70-6.10); White Blood Cell (WBC) Count 14.8 thou/uL (4.8-10.8)
[2018-02-24] MEDS: Acyclovir Sodium 600 MG in Sodium Chloride 0.9% 100 ML IVPB SCH ×3 (06:15→22:53)
[2018-02-24] MEDS: HumaLOG 300 UNITS/3 ML VIAL SC PRN ×3 (06:16→21:06)
[2018-02-24 06:59] LABS: Actual Bicarbonate (HCO3a) 22.8 mEq/L (22-28); Base Excess (BEa) -1.2 mEq/L (-2.0 to +3.0); CO2 Tension 35.5 mmHg (35.0-45.0); Calcium, Ionized 1.15 mmol/L (1.12-1.30); Carboxyhemoglobin (COHb) 0.6 gm% (0.0-3.0); Hemoglobin (Hb) 10.2 g/dL (14.0-18.0); O2 Tension (PaO2) 70.4 mmHg (> 60.0); Potassium - ABG Lab 3.42 mmol/L (3.70-5.30); pH, Arterial 7.43 (7.35-7.45)
[2018-02-24 07:29] LABS: ALV-art Gradient 84.865 (0-20); Puncture Site LRA
--- NOTE | 2018-02-24 08:21 | PRG ---
DATE OF SERVICE: 02/23/2018 SUBJECTIVE: Mr. Muñiz remains hemodynamically stable. He has had no visible seizures. He is still on propofol drip. OBJECTIVE: VITAL SIGNS: Blood pressure is 94/63, earlier 161/113 this afternoon, though most of the blood pressures have been normal. Heart rates have been in the 97 to 100 range. Respiratory rates in the teens. LUNGS: Clear. HEART: Regular rhythm. ABDOMEN: Soft and nontender. EXTREMITIES: Without asymmetry. LABORATORY DATA: White count 15.5, hemoglobin 12.4, platelets 114,000. Sodium 142, potassium 3.4, chloride 108, bicarb 21, BUN 25, creatinine 1.42. IMPRESSION AND PLAN: 1. Encephalitis. 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 3. 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 An MRI was repeated today, which showed no structural brain abnormalities. We will continue with current care. We will probably turn off sedation in the morning and see how he does. Critical care time, 30 minutes. Job ID: [id number] MTDD
--- NOTE | 2018-02-24 08:33 | RAD ---
PORTABLE CHEST: HISTORY: Respiratory distress. COMPARISON: Prior day's study. FINDINGS: Endotracheal tube is approximately a centimeter above the enrique. NG tube is below the hemidiaphragm . The lungs are clear of any infiltrates. IMPRESSION: Essentially stable exam. POS: GLORIA
[2018-02-24] MEDS: Labetalol HCl 100 MG/20 ML VIAL SLOW IVP PRN (09:03)
[2018-02-24] MEDS: Aspirin 300 MG Suppository PR SCH (09:04)
[2018-02-24] MEDS: Heparin 5,000 UNITS/ML VIAL SC SCH ×2 (09:04→21:03)
[2018-02-24] MEDS: levETIRAcetam In NaCl (Iso-Os) 1,000 MG in Premix Bag 1 BAG IVPB SCH ×2 (09:04→21:07)
[2018-02-24] MEDS: Famotidine/PF 20 mg/2ml Vial SLOW IVP SCH ×2 (09:04→21:02)
[2018-02-24 12:15] LABS: West Nile Virus IgG Ab - CSF Negative (Negative); West Nile Virus IgM Ab - CSF Negative (Negative)
[2018-02-24] MEDS: Scopolamine 1.5 mg/72 hour Patch TD SCH (12:54)
[2018-02-24] MEDS: Labetalol HCl 100 MG/20 ML VIAL SLOW IVP SCH ×2 (12:55→20:44)
[2018-02-24] MEDS ORDERED: niCARdipine HCl 25 MG in Sodium Chloride 0.9% 250 ML 240 ML IVPB SCH (14:15)
--- NOTE | 2018-02-24 15:01 | PDOC.PN ---
- Subjective Encounter Start Date: 02/24/18 Encounter Start Time: 14:59 Subjective: responding to verbal stimuli today.tarcke and nods -: moving R arm some.on CPAP via ETT this morning on exam -: off of sedation - Objective MAR Reviewed: Yes Vital Signs & Weight: Vital Signs (12 hours) Temp Pulse Resp BP Pulse Ox 02/24/18 14:32 96 172/107 H 02/24/18 14:00 16 02/24/18 12:55 108 H 178/95 H 02/24/18 12:00 28 H 02/24/18 11:00 99.1 F 02/24/18 10:09 104 H 175/98 H 02/24/18 10:00 28 H 02/24/18 09:03 107 H 192/90 H 02/24/18 08:00 30 H 99 02/24/18 07:00 99.5 F 02/24/18 06:40 96 142/79 H 02/24/18 06:00 15 02/24/18 04:00 99.5 F 15 Weight Admit Weight 172 lb Weight 171 lb 15.369 oz Most Recent Monitor Data Heart Rate from ECG 99 NIBP 172/107 NIBP BP-Mean 128 Respiration from ECG 32 SpO2 99 I&O: 02/23/18 02/24/18 02/25/18 06:59 06:59 06:59 Intake Total 2501 2471 Output Total 972 1000 760 Balance 1529 1471 -760 Result Diagrams: 02/24/18 03:39 02/24/18 03:39 Additional Labs: Accuchecks 02/24/18 02/24/18 02/23/18 12:41 05:37 21:09 POC Glucose 203 H 225 H 183 H 02/23/18 16:42 POC Glucose 180 H Microbiology 02/22/18 14:10 Nasopharyngeal swab Respiratory Virus Panel (PCR) - Final 02/21/18 12:15 Spinal Fluid Culture Cryptococcal Antigen - Final 02/20/18 13:03 Spinal Fluid Gram Stain - Final 02/18/18 21:35 Venous blood - Right Arm Blood Culture - Final NO GROWTH IN 5 DAYS 02/18/18 21:08 Venous blood - Right Arm Blood Culture - Final NO GROWTH IN 5 DAYS 02/18/18 18:50 Urine tate catheter Urine Culture - Final NO GROWTH AT 48 HOURS Laboratory Tests 02/20/18 02/20/18 02/21/18 03:50 03:50 12:15 WBC 13.6 H Plt Count 104 L Creatinine 0.98 VZV DNA (PCR) Pending 02/23/18 02/23/18 02/23/18 03:38 03:38 03:38 WBC 15.3 H 15.5 H Plt Count 115 L 114 L Creatinine 1.42 H VZV DNA (PCR) 02/24/18 02/24/18 03:39 03:39 WBC 14.8 H Plt Count 103 L Creatinine 1.43 H VZV DNA (PCR) Phys Exam - Physical Examination Constitutional: NAD opens eys and smiles when engaged.follows w eyes HEENT: moist MMs, sclera anicteric, oral pharynx no lesions ETT Neck: no nodes, no JVD, supple, full ROM Respiratory: no wheezing, no rales, no rhonchi, clear to auscultation bilateral Cardiovascular: RRR, no significant murmur Gastrointestinal: soft, non-tender, no distention, positive bowel sounds Musculoskeletal: no edema, pulses present moving R arm better .moves Both legs Psychiatric: normal affect Deviation from normal: goes back to sleep quickly Skin: no rash Dx/Plan (1) Seizure Code(s): R56.9 - UNSPECIFIED CONVULSIONS Status: Acute (2) Acute encephalopathy Code(s): G93.40 - ENCEPHALOPATHY, UNSPECIFIED Status: Acute Comment: Suspect Viral encephalitis (3) Uncontrolled hypertension Code(s): I10 - ESSENTIAL (PRIMARY) HYPERTENSION Status: Acute Comment: off of Cardene drip (4) Fever Code(s): R50.9 - FEVER, UNSPECIFIED Status: Acute (5) CAD (coronary artery disease) Code(s): I25.10 - ATHSCL HEART DISEASE OF [place] CORONARY ARTERY W/O ANG PCTRS Status: Chronic Comment: contoiniue Aspirin., BB, No chest pain but elevated troponins. Planned Nuc stress test in Am (6) DM2 (diabetes mellitus, type 2) Status: Chronic Comment: Well controlled. Continue SSI. (7) Ischemic cerebrovascular accident (CVA) Code(s): I63.9 - CEREBRAL INFARCTION, UNSPECIFIED Status: Ruled-out Comment : MRI negative for same.repeat MRI done-NO CVA. ? subdural hygroma Vs Chr SDH - Plan continue antibiotics, PT/OT, respiratory therapy, out of bed/ambulate, DVT proph w/SCDs cont empiric care w IV acyclovir,keppra iv BID -: VZV IGm mildly +ve.PCR pending. [place] PCR/VDRL/Enterovirus CSF pending -: Clonidine patch stopped for some reason.will start IV BB given High BP & HR -: EEG negative for seizures. -: vent support & weaning per [facility] * . Review of Systems - Review of Systems Other: unobtainable due to intubated state and residual encephalopathy - Medications/Allergies Allergies/Adverse Reactions: Allergies Allergy/AdvReac Type Severity Reaction Status Date / Time No Known Allergies Allergy Verified 06/20/17 23:36 Medications: Current Medications Acetaminophen (Tylenol) 650 mg SC Q4H PRN PRN Reason: Headache/Fever/Mild Pain (1-3) Last Admin: 02/20/18 07:46 Dose: 650 mg Aspirin (Aspirin) 300 mg SC DAILY [facility] Last Admin: 02/24/18 09:04 Dose: 300 mg Atorvastatin Calcium (Lipitor) 40 mg PO HS [facility] Last Admin: 02/23/18 21:26 Dose: 40 mg Bisacodyl (Dulcolax) 10 mg SC DAILYPRN PRN PRN Reason: Constipation Dextrose/Water (Dextrose 50%) 25 gm SLOW IVP PRN PRN PRN Reason: Hypoglycemia Famotidine (Pepcid) 20 mg SLOW IVP Q12HR [facility] Last Admin: 02/24/18 09:04 Dose: 20 mg Glucagon (Glucagon) 1 mg IM PRN PRN PRN Reason: Hypoglycemia Heparin Sodium (Porcine) (Heparin) 5,000 units SC BID [facility] Last Admin: 02/24/18 09:04 Dose: 5,000 units Hydralazine HCl (Apresoline) 10 mg SLOW IVP Q4H PRN PRN Reason: SBP > 180 and HR < 70 Last Admin: 02/21/18 00:35 Dose: 10 mg Dextrose/Water (D5w) 1,000 mls @ 0 mls/hr IV .Q0M PRN PRN Reason: Hypoglycemia Sodium Chloride (Normal Saline 0.9%) 1,000 mls @ 50 mls/hr IV .Q20H [facility] Last Admin: 02/23/18 16:50 Dose: 1,000 mls Acyclovir Sodium 600 mg/ (Sodium Chloride) 112 mls @ 112 mls/hr IVPB Q8HR [facility] Last Admin: 02/24/18 14:42 Dose: 112 mls Fentanyl Citrate 2,000 mcg/ (Sodium Chloride) 100 mls @ 0 mls/hr IV INF ZIZY; Protocol Stop: 03/23/18 20:29 Fentanyl Citrate (Fentanyl Bolus) 250 mls @ 0 mls/hr IVPB PRN PRN PRN Reason: Breakthrough pain/agitation Stop: 03/23/18 20:29 Levetiracetam 1,000 mg/ Device 100 mls @ 200 mls/hr IVPB Q12HR [facility] Last Admin: 02/24/18 09:04 Dose: 100 mls Nicardipine HCl 25 mg/ Sodium (Chloride) 250 mls @ 0 mls/hr IVPB INF [facility]; Protocol Insulin Human Lispro (Humalog) 0 units SC .MODERATE SLIDING SC PRN PRN Reason: Moderate Correctional Scale Last Admin: 02/24/18 12:56 Dose: 4 unit Insulin Human Lispro (Humalog) 0 units SC .BEDTIME SLIDING SC PRN PRN Reason: Bedtime Correctional Scale Last Admin: 02/18/18 21:54 Dose: 4 unit Labetalol HCl (Normodyne) 20 mg SLOW IVP Q4H PRN PRN Reason: SBP > 180 and HR >/= 100 Last Admin: 02/24/18 09:03 Dose: 20 mg Labetalol HCl (Normodyne) 10 mg SLOW IVP Q8H [facility] Last Admin: 02/24/18 12:55 Dose: 10 mg Lorazepam (Ativan) 2 mg SLOW IVP Q1H PRN PRN Reason: Breakthrough agitation Stop: 03/23/18 20:29 Last Admin: 02/23/18 09:55 Dose: 2 mg Magnesium Hydroxide (Milk Of Magnesium) 30 ml PO BIDPRN PRN PRN Reason: Constipation Metoclopramide HCl (Reglan) 10 mg IVP Q6H PRN PRN Reason: Nausea/Vomiting Morphine Sulfate (Morphine) 2 mg SLOW IVP Q1H PRN PRN Reason: BREAKTHROUGH PAIN/Agitation Stop: 03/23/18 20:29 Discontinue Previous Narcotic Pain Medications And Benzodiazepines 1 each FS .ONE [facility] Stop: 03/23/18 20:29 Ondansetron HCl (Zofran) 4 mg IVP Q6H PRN PRN Reason: Nausea/Vomiting Propofol (Diprivan) 1,000 mg IV INF PRN; Protocol PRN Reason: TO ACHIEVE GOAL RASS Stop: 03/23/18 20:29 Last Admin: 02/23/18 21:28 Dose: 1,000 mg Propofol (Diprivan Bolus) 20 mg IV Q5MIN PRN PRN Reason: BREAKTHROUGH AGITATION Stop: 03/23/18 20:29 Scopolamine (Transderm Scop) 1.5 mg TD Q3D [facility] Last Admin: 02/24/18 12:54 Dose: 1.5 mg
[2018-02-24] MEDS: Sodium Chloride 0.9% 1,000 ML IV SCH ×2 (15:29→22:54)
[2018-02-24] MEDS: Acetaminophen 650 MG Suppository PR PRN (15:59)
--- NOTE | 2018-02-24 18:08 | PRG ---
DATE OF SERVICE: 02/24/2018 OBJECTIVE: GENERAL/VITAL SIGNS: Respiratory rate 15, heart rate in the 90s, blood pressure 127/82, sedation was held this morning. He will awake and then he starts to spontaneously move all of his extremities, although his right upper extremity does not appear to be moving as well as the others. He actually made eye contact with me this morning. LUNGS: Clear. HEART: Regular rhythm. ABDOMEN: Soft and nontender. EXTREMITIES: Without edema. LABORATORY DATA: White count 14.8, hemoglobin 12.5, and platelets 130,000. Sodium 143, potassium 3.6, chloride 112, bicarb 20, BUN 23, and creatinine 1.43. IMPRESSION: 1. encephalitis. 2. Seizures perhaps leading to his hemiplegia. 3. Status post generalized tonic clonic seizure leading to intubation. He does well off propofol for 24 hours, we will consider extubating him. 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 Ativan if he has any generalized seizures Propofol will be taken off his MAR, but Ativan will be left in the event that he as an episode of seizures. Critical care time, 30 minutes. Job ID: [id number] MTDD
[2018-02-24] MEDS: Atorvastatin Calcium 40 MG TAB PO SCH (21:07)
[2018-02-25] MEDS: Labetalol HCl 100 MG/20 ML VIAL SLOW IVP SCH ×3 (04:17→20:40)
[2018-02-25] MEDS: Acyclovir Sodium 600 MG in Sodium Chloride 0.9% 100 ML IVPB SCH ×2 (06:09→13:33)
[2018-02-25] MEDS: HumaLOG 300 UNITS/3 ML VIAL SC PRN ×3 (06:09→17:01)
[2018-02-25 06:40] LABS: Band 11 % (5-11); Lymphocytes 30 % (21-51); MDiff Complete? YES; Mean Corpuscular HGB CONC 31.3 g/dL (32.0-36.0); Mean Corpuscular Hemoglobin 26.7 pg (27.0-31.0); Mean Corpuscular Volume 85.5 fL (78.0-98.0); Mean Platelet Volume 10.4 fL (7.4-10.4); Monocytes 4 % (0-10); Neutrophil 55 % (42-75); PLT Morphology Comment Appears Adequate; Platelet Count 129 thou/uL (130-400); RBC Distribution Width 13.4 % (11.5-14.5); White Blood Cell (WBC) Count 10.7 thou/uL (4.8-10.8)
[2018-02-25 06:41] LABS: Anion Gap 14 mmol/L (10-20); BUN (Urea Nitrogen) 17 mg/dL (8.4-25.7); Calc. Creatinine Clearance 52 mL/min (70-130); Calcium 8.4 mg/dL (7.8-10.44); Carbon Dioxide 22 mmol/L (23-31); Chloride 113 mmol/L (98-107); Estimated GFR-MDRD 73; Glucose 259 mg/dL (83-110); Potassium 3.8 mmol/L (3.5-5.1); Sodium 145 mmol/L (136-145)
[2018-02-25 07:18] LABS: Actual Bicarbonate (HCO3a) 21.5 mEq/L (22-28); Base Excess (BEa) -2.4 mEq/L (-2.0 to +3.0); CO2 Tension 34.3 mmHg (35.0-45.0); Calcium, Ionized 1.16 mmol/L (1.12-1.30); Carboxyhemoglobin (COHb) 1.1 gm% (0.0-3.0); Hemoglobin (Hb) 12.1 g/dL (14.0-18.0); O2 Tension (PaO2) 66.1 mmHg (> 60.0); Potassium - ABG Lab 3.58 mmol/L (3.70-5.30); pH, Arterial 7.42 (7.35-7.45)
[2018-02-25 07:34] LABS: Puncture Site L.R.
[2018-02-25 07:35] LABS: ALV-art Gradient 104.925 (0-20)
--- NOTE | 2018-02-25 08:04 | RAD ---
CHEST 1 VIEW: HISTORY: An 83-year-old male with a history of respiratory insufficiency. FINDINGS: NG tube is in place. Endotracheal tube appears to be within the orifice of the left mainstem bronchu s and could probably be pulled back 1-2 cm from more optimal positioning. Increased bronchovascular markings bilaterally with some minimal decreased expansion in the right lower lobe when compared to t he prior study of 02/24/2018. No pneumothorax or pleural effusion. IMPRESSION: Endotracheal tube in the orifice of the left mainstem bronchus. Minimal developing parenchymal opaci ty changes in the right lower chest. Mild stable vascular congestion. Continued short-term followup . POS: MAGGY
[2018-02-25] MEDS: Labetalol HCl 100 MG/20 ML VIAL SLOW IVP PRN (08:06)
[2018-02-25] MEDS: Aspirin 300 MG Suppository PR SCH (08:23)
[2018-02-25] MEDS: Heparin 5,000 UNITS/ML VIAL SC SCH ×2 (08:23→20:42)
[2018-02-25] MEDS: Famotidine/PF 20 mg/2ml Vial SLOW IVP SCH ×2 (08:23→20:41)
[2018-02-25] MEDS: levETIRAcetam In NaCl (Iso-Os) 1,000 MG in Premix Bag 1 BAG IVPB SCH ×2 (09:25→21:02)
--- NOTE | 2018-02-25 13:20 | PDOC.PN ---
- Subjective Encounter Start Date: 02/25/18 Encounter Start Time: 13:18 Subjective: OFF OF SEDATION & FOUND LYING PERPENDICULAR TO BED W RESTRAINTS ON -: reported improvement in mentation -: no acute events overnight - Objective MAR Reviewed: Yes Vital Signs & Weight: Vital Signs (12 hours) Temp Pulse Resp BP Pulse Ox 02/25/18 13:03 73 154/93 H 02/25/18 12:00 98.3 F 25 H 97 02/25/18 11:08 73 136/74 02/25/18 10:00 17 02/25/18 08:06 69 183/99 H 02/25/18 08:00 98.7 F 16 98 02/25/18 06:57 78 179/95 H 02/25/18 06:00 20 02/25/18 04:17 66 174/93 H 02/25/18 04:00 98.8 F 18 02/25/18 02:24 63 160/92 H 02/25/18 02:00 15 Weight Admit Weight 172 lb Weight 171 lb 8.314 oz Most Recent Monitor Data Heart Rate from ECG 79 NIBP 151/82 NIBP BP-Mean 105 Respiration from ECG 29 SpO2 98 I&O: 02/24/18 02/25/18 02/26/18 06:59 06:59 06:59 Intake Total 2471 1833 639 Output Total 1000 1605 560 Balance 1471 228 79 Result Diagrams: 02/25/18 06:19 02/25/18 06:19 Additional Labs: Accuchecks 02/25/18 02/25/18 02/24/18 12:04 05:53 20:51 POC Glucose 301 H 236 H 151 H 02/24/18 16:18 POC Glucose 138 H Microbiology 02/22/18 14:10 Nasopharyngeal swab Respiratory Virus Panel (PCR) - Final 02/21/18 12:15 Spinal Fluid Culture Cryptococcal Antigen - Final 02/20/18 13:03 Spinal Fluid Gram Stain - Final 02/18/18 21:35 Venous blood - Right Arm Blood Culture - Final NO GROWTH IN 5 DAYS 02/18/18 21:08 Venous blood - Right Arm Blood Culture - Final NO GROWTH IN 5 DAYS 02/18/18 18:50 Urine tate catheter Urine Culture - Final NO GROWTH AT 48 HOURS Laboratory Tests 02/20/18 02/20/18 02/21/18 03:50 13:03 12:15 Creatinine 0.98 CSF VDRL Non Reactive CSF [place] IgG Ab Negative CSF [place] IgM Ab Negative 02/23/18 02/24/18 02/25/18 03:38 03:39 06:19 Creatinine 1.42 H 1.43 H 1.15 CSF VDRL CSF [place] IgG Ab CSF [place] IgM Ab Phys Exam - Physical Examination Constitutional: NAD opens eyes and tracks,smiles HEENT: PERRLA, moist MMs, sclera anicteric, oral pharynx no lesions Neck: no nodes, no JVD, supple, full ROM Respiratory: no wheezing, no rales, no rhonchi, clear to auscultation bilateral Cardiovascular: RRR, no significant murmur Gastrointestinal: soft, non-tender, no distention, positive bowel sounds Musculoskeletal: no edema, pulses present moving r arm same as yesterday though in restraints,so limited mobility Psychiatric: normal affect Skin: no rash Dx/Plan (1) Seizure Code(s): R56.9 - UNSPECIFIED CONVULSIONS Status: Acute Comment: on keppra.MRI negative for ac CVA X2 (2) Acute encephalopathy Code(s): G93.40 - ENCEPHALOPATHY, UNSPECIFIED Status: Acute Comment: Suspect Viral encephalitis Vs Seizures (3) Uncontrolled hypertension Code(s): I10 - ESSENTIAL (PRIMARY) HYPERTENSION Status: Acute Comment: was off of Cardene drip now back on. (4) Fever Code(s): R50.9 - FEVER, UNSPECIFIED Status: Resolved (5) CAD (coronary artery disease) Code(s): I25.10 - ATHSCL HEART DISEASE OF [place] CORONARY ARTERY W/O ANG PCTRS Status: Chronic (6) DM2 (diabetes mellitus, type 2) Status: Chronic Comment: Well controlled. Continue SSI. (7) Ischemic cerebrovascular accident (CVA) Code(s): I63.9 - CEREBRAL INFARCTION, UNSPECIFIED Status: Ruled-out Comment : MRI negative for same.repeat MRI done-NO CVA. ? subdural hygroma Vs Chr SDH (8) Thrombocytopenia Code(s): D69.6 - THROMBOCYTOPENIA, UNSPECIFIED Status: Acute Comment: improving - Plan tate catheter, continue antibiotics, PT/OT, respiratory therapy, DVT proph w/ SCDs clinically stable.cont vent support -: cont keppra and acyclovir.CSF EnteroViral PCR pending -: [place] negative. VZV PCR pending. -: cont labetalol IV.may add clonidine patch.stopped for some reason -: platelet count was low ,now better. * .Vent weaning per PPCM * am labs Review of Systems - Review of Systems Other: can not be obtained due to intubation & encephalopathy - Medications/Allergies Allergies/Adverse Reactions: Allergies Allergy/AdvReac Type Severity Reaction Status Date / Time No Known Allergies Allergy Verified 06/20/17 23:36 Medications: Current Medications Acetaminophen (Tylenol) 650 mg IN Q4H PRN PRN Reason: Headache/Fever/Mild Pain (1-3) Last Admin: 02/24/18 15:59 Dose: 650 mg Aspirin (Aspirin) 300 mg IN DAILY [facility] Last Admin: 02/25/18 08:23 Dose: 300 mg Atorvastatin Calcium (Lipitor) 40 mg PO HS [facility] Last Admin: 02/24/18 21:07 Dose: 40 mg Bisacodyl (Dulcolax) 10 mg IN DAILYPRN PRN PRN Reason: Constipation Dextrose/Water (Dextrose 50%) 25 gm SLOW IVP PRN PRN PRN Reason: Hypoglycemia Famotidine (Pepcid) 20 mg SLOW IVP Q12HR [facility] Last Admin: 02/25/18 08:23 Dose: 20 mg Glucagon (Glucagon) 1 mg IM PRN PRN PRN Reason: Hypoglycemia Heparin Sodium (Porcine) (Heparin) 5,000 units SC BID [facility] Last Admin: 02/25/18 08:23 Dose: 5,000 units Hydralazine HCl (Apresoline) 10 mg SLOW IVP Q4H PRN PRN Reason: SBP > 180 and HR < 70 Last Admin: 02/21/18 00:35 Dose: 10 mg Dextrose/Water (D5w) 1,000 mls @ 0 mls/hr IV .Q0M PRN PRN Reason: Hypoglycemia Acyclovir Sodium 600 mg/ (Sodium Chloride) 112 mls @ 112 mls/hr IVPB Q8HR [facility] Last Admin: 02/25/18 06:09 Dose: 112 mls Fentanyl Citrate 2,000 mcg/ (Sodium Chloride) 100 mls @ 0 mls/hr IV INF [facility]; Protocol Stop: 03/23/18 20:29 Fentanyl Citrate (Fentanyl Bolus) 250 mls @ 0 mls/hr IVPB PRN PRN PRN Reason: Breakthrough pain/agitation Stop: 03/23/18 20:29 Levetiracetam 1,000 mg/ Device 100 mls @ 200 mls/hr IVPB Q12HR [facility] Last Admin: 02/25/18 09:25 Dose: 100 mls Nicardipine HCl 25 mg/ Sodium (Chloride) 250 mls @ 0 mls/hr IVPB INF [facility]; Protocol Last Admin: 02/24/18 15:11 Dose: 250 mls Dexmedetomidine HCl 400 mcg/ (Sodium Chloride) 100 mls @ 0 mls/hr IVPB INF [facility] Last Admin: 02/24/18 22:56 Dose: 100 mls Insulin Human Lispro (Humalog) 0 units SC .MODERATE SLIDING SC PRN PRN Reason: Moderate Correctional Scale Last Admin: 02/25/18 12:10 Dose: 8 unit Insulin Human Lispro (Humalog) 0 units SC .BEDTIME SLIDING SC PRN PRN Reason: Bedtime Correctional Scale Last Admin: 02/18/18 21:54 Dose: 4 unit Labetalol HCl (Normodyne) 20 mg SLOW IVP Q4H PRN PRN Reason: SBP > 180 and HR >/= 100 Last Admin: 02/25/18 08:06 Dose: 20 mg Labetalol HCl (Normodyne) 10 mg SLOW IVP Q8H [facility] Last Admin: 02/25/18 13:03 Dose: 10 mg Lorazepam (Ativan) 2 mg SLOW IVP Q1H PRN PRN Reason: Breakthrough agitation Stop: 03/23/18 20:29 Last Admin: 02/23/18 09:55 Dose: 2 mg Magnesium Hydroxide (Milk Of Magnesium) 30 ml PO BIDPRN PRN PRN Reason: Constipation Metoclopramide HCl (Reglan) 10 mg IVP Q6H PRN PRN Reason: Nausea/Vomiting Morphine Sulfate (Morphine) 2 mg SLOW IVP Q1H PRN PRN Reason: BREAKTHROUGH PAIN/Agitation Stop: 03/23/18 20:29 Last Admin: 02/24/18 15:57 Dose: 2 mg Discontinue Previous Narcotic Pain Medications And Benzodiazepines 1 each FS .ONE [facility] Stop: 03/23/18 20:29 Ondansetron HCl (Zofran) 4 mg IVP Q6H PRN PRN Reason: Nausea/Vomiting Scopolamine (Transderm Scop) 1.5 mg TD Q3D [facility] Last Admin: 02/24/18 12:54 Dose: 1.5 mg
[2018-02-25 14:26] LABS: VZV Real Time PCR Negative (Negative)
[2018-02-25] MEDS ORDERED: Bisacodyl 10 MG SUPP PR PRN (16:46)
[2018-02-25] MEDS: cloNIDine 0.2mg/24 Hour PATCH TD SCH (17:31)
[2018-02-25] MEDS: Haloperidol Lactate 5 MG/ML VIAL IM PRN (18:14)
[2018-02-25] MEDS: Atorvastatin Calcium 40 MG TAB PO SCH (20:41)
--- NOTE | 2018-02-25 21:19 | PRG ---
DATE OF SERVICE: 02/25/2018 SUBJECTIVE: Mr. Muñiz was awake. His Precedex was turned off this morning. He awakened and moved all his extremities. He met criteria for weaning after an extubation after spontaneous breathing trial. He subsequently has been extubated. He is modestly hypertensive. I have recommended that a Cardene drip is used to control his blood pressure. OBJECTIVE: VITAL SIGNS: Heart rate is 103. LUNGS: Clear. HEART: Regular rhythm. ABDOMEN: Soft and nontender. EXTREMITIES: Without clubbing, cyanosis, or edema. IMPRESSION AND PLAN: I met with his and answered all of her questions. He appears to be protecting his airway, this afternoon when I evaluated him after extubation. Critical care time, 30 minutes. Job ID: [id number]
--- NOTE | 2018-02-26 00:10 | PRG ---
DATE OF SERVICE: 02/25/2018 SUBJECTIVE: Mr. Muñiz had been extubated. He is awake. He is talking and follows commands. Denies any pain. He still has a difficulty in his speech, it is somewhat hard to understand. OBJECTIVE: VITAL SIGNS: T-max was 100 yesterday, elevation of systolic blood pressure of 188, moderately tachycardiac, and O2 saturation 96%. GENERAL: He looks around. He does not have the left side preference anymore. He is able to move his extremities. LUNGS: Clear. HEART: S1, S2. Regular rate. ABDOMEN: Soft, nondistended. : He has an indwelling Frankel catheter. LABORATORY DATA: His white cell count is down to 10.7, hemoglobin is 12, platelets 129 with normal differential. Sodium 145, creatinine 1.15. VZV DNA PCR negative. ASSESSMENT AND DISCUSSION: 1. Type 2 diabetes. 2. Coronary artery disease. 3. Prior transient ischemic attacks with dense hemiparesis, right-sided neglect and gaze preference. Negative MRI x2. Mild to moderate pleocytosis. Herpes simplex and herpes Zoster encephalitis have been ruled out, and we will go ahead and discontinue acyclovir. It is possible that he has had seizures with postictal phenomenon related to ischemic disease that did not yet manifest as an overt brain tissue infarction. Job ID: [id number] [facility]
[2018-02-26] MEDS: Labetalol HCl 100 MG/20 ML VIAL SLOW IVP SCH ×3 (05:00→19:59)
[2018-02-26] MEDS: HumaLOG 300 UNITS/3 ML VIAL SC PRN ×2 (06:03→10:22)
[2018-02-26 06:08] LABS: Anion Gap 14 mmol/L (10-20); BUN (Urea Nitrogen) 13 mg/dL (8.4-25.7); Calc. Creatinine Clearance 53 mL/min (70-130); Calcium 8.4 mg/dL (7.8-10.44); Carbon Dioxide 27 mmol/L (23-31); Chloride 108 mmol/L (98-107); Estimated GFR-MDRD 75; Glucose 221 mg/dL (83-110); Potassium 3.4 mmol/L (3.5-5.1); Sodium 146 mmol/L (136-145)
[2018-02-26 06:12] LABS: Hemoglobin 12.3 g/dL (14.0-18.0); Hypochromia SLIGHT = 6-15 cells (100X) (0-5/hpf); Lymphocytes 29 % (21-51); MDiff Complete? YES; Mean Corpuscular HGB CONC 32.4 g/dL (32.0-36.0); Mean Corpuscular Hemoglobin 27.2 pg (27.0-31.0); Mean Platelet Volume 9.5 fL (7.4-10.4); Monocytes 2 % (0-10); Neutrophil 69 % (42-75); PLT Morphology Comment Appears Adequate; Platelet Count 193 thou/uL (130-400); RBC Distribution Width 13.2 % (11.5-14.5); Red Blood Cell (RBC) Count 4.51 mill/uL (4.70-6.10); White Blood Cell (WBC) Count 10.5 thou/uL (4.8-10.8)
[2018-02-26] MEDS: Famotidine/PF 20 mg/2ml Vial SLOW IVP SCH ×2 (08:30→20:01)
[2018-02-26] MEDS: Heparin 5,000 UNITS/ML VIAL SC SCH ×2 (08:30→20:01)
[2018-02-26] MEDS: Aspirin 300 MG Suppository PR SCH (08:30)
--- NOTE | 2018-02-26 09:03 | RAD ---
PORTABLE CHEST 1 VIEW: Date: 02/26/18 Time: 0511 hours HISTORY: Respiratory failure. FINDINGS: There has been interval removal of the endotracheal and nasogastric tube since the previous day's exa m. Remainder of exam is otherwise stable. POS: [facility]
[2018-02-26] MEDS: levETIRAcetam In NaCl (Iso-Os) 1,000 MG in Premix Bag 1 BAG IVPB SCH ×2 (09:12→20:02)
[2018-02-26] MEDS: Haloperidol Lactate 5 MG/ML VIAL IM PRN (10:50)
--- NOTE | 2018-02-26 12:41 | PRG ---
DATE OF SERVICE: 02/26/2018 SUBJECTIVE: Mr. Muñiz is awake. He tries to be verbal. He appears to be moving all 4 of his extremities, but he is very slow to respond. OBJECTIVE: VITAL SIGNS: He is afebrile, heart rate is 106, oximetry is 96%, and blood pressure 107/98. LUNGS: Remarkable for coarse equal breath sounds. HEART: Regular rhythm. ABDOMEN: Soft. EXTREMITIES: Without asymmetry. LABORATORY DATA: White count 10.5, hemoglobin 12.3, and platelets 193. Sodium 146, potassium 3.4, chloride 108, bicarb 27, BUN 13, and creatinine 1.12. IMPRESSION AND PLAN: Encephalitis with seizures leading to intubation. He is stable postextubation, but he is still quite slow. He is protecting his airway adequately now. We do avoid all sedating drugs for him. He is cooperative. I doubt he will pass the swallowing evaluation at this time, so probably needs a Dobbhoff tube with x-ray confirmation. We will continue to follow. He needs to stay in the critical care unit in my opinion for now. Job ID: [id number]
[2018-02-26] MEDS: Lorazepam 2 MG/ML VIAL SLOW IVP PRN (13:19)
[2018-02-26] MEDS: Labetalol HCl 100 MG/20 ML VIAL SLOW IVP PRN ×2 (15:03→23:14)
--- NOTE | 2018-02-26 15:16 | RAD ---
ABDOMEN 1 VIEW: Date: 02/26/18 HISTORY: 83-year-old male with history of Dobbhoff tube placement for position evaluation. FINDINGS: A Dobbhoff tube has been placed, with the tip extending into the region of the distal antrum and poss ibly duodenum. Postop midline sternotomy changes. No bowel obstruction. IMPRESSION: Dobbhoff tube in place. POS: OFF
--- NOTE | 2018-02-26 17:43 | PDOC.PN ---
- Subjective Encounter Start Date: 02/26/18 Encounter Start Time: 09:40 Pt seen for followup re: seizures. Pt not answering questions, unable to complete ROS. - Objective MAR Reviewed: Yes Vital Signs & Weight: Vital Signs (12 hours) Temp Pulse Pulse Pulse BP BP BP 02/26/18 15:03 105 H 180/84 H 02/26/18 15:00 100.5 F H 02/26/18 11:12 105 H 180/97 H 02/26/18 11:00 98.0 F 02/26/18 09:35 106 H 167/98 H 02/26/18 08:36 89 120 H 166/93 H 161/100 H 02/26/18 07:37 02/26/18 07:00 98.8 F Pulse Ox Pulse Ox 02/26/18 15:03 02/26/18 15:00 02/26/18 11:12 02/26/18 11:00 02/26/18 09:35 96 02/26/18 08:36 02/26/18 07:37 96 02/26/18 07:00 Weight Admit Weight 172 lb Weight 171 lb 8.314 oz Most Recent Monitor Data Heart Rate from ECG 89 NIBP 165/88 NIBP BP-Mean 113 Respiration from ECG 34 SpO2 95 I&O: 02/25/18 02/26/18 02/27/18 06:59 06:59 06:59 Intake Total 1833 1043 100 Output Total 1605 3980 715 Balance 228 -2937 -615 Result Diagrams: 02/26/18 05:30 02/26/18 05:30 Additional Labs: Accuchecks 02/26/18 02/26/18 02/26/18 16:17 10:15 06:02 POC Glucose 138 H 167 H 207 H EKG Reviewed by me: Yes (Tele: NSR) Phys Exam - Physical Examination Constitutional: NAD HEENT: moist MMs Neck: supple Respiratory: clear to auscultation bilateral Cardiovascular: RRR Gastrointestinal: soft Neurological: moves all 4 limbs Psychiatric: normal affect Dx/Plan (1) Acute encephalopathy Code(s): G93.40 - ENCEPHALOPATHY, UNSPECIFIED Status: Acute Comment: viral encephalitis vs Seizures (2) Seizure Code(s): R56.9 - UNSPECIFIED CONVULSIONS Status: Acute Comment: continue Keppra (3) DM2 (diabetes mellitus, type 2) Status: Chronic Comment: Continue SSI. - Plan * . Review of Systems - Medications/Allergies Allergies/Adverse Reactions: Allergies Allergy/AdvReac Type Severity Reaction Status Date / Time No Known Allergies Allergy Verified 06/20/17 23:36 Medications: Current Medications Acetaminophen (Tylenol) 650 mg [place] Q4H PRN PRN Reason: Headache/Fever/Mild Pain (1-3) Last Admin: 02/24/18 15:59 Dose: 650 mg Aspirin (Aspirin) 300 mg [place] DAILY [facility] Last Admin: 02/26/18 08:30 Dose: 300 mg Atorvastatin Calcium (Lipitor) 40 mg PO HS [facility] Last Admin: 02/25/18 20:41 Dose: 40 mg Bisacodyl (Dulcolax) 10 mg [place] DAILYPRN PRN PRN Reason: Constipation Last Admin: 02/25/18 16:57 Dose: 10 mg Clonidine (Eejdrmfl-Cfz-3) 0.2 mg TD Q7DAYS@1700 [facility] Last Admin: 02/25/18 17:31 Dose: 0.2 mg Dextrose/Water (Dextrose 50%) 25 gm SLOW IVP PRN PRN PRN Reason: Hypoglycemia Famotidine (Pepcid) 20 mg SLOW IVP Q12HR [facility] Last Admin: 02/26/18 08:30 Dose: 20 mg Glucagon (Glucagon) 1 mg IM PRN PRN PRN Reason: Hypoglycemia Haloperidol Lactate (Haldol) 5 mg IM Q4H PRN PRN Reason: Agitation Last Admin: 02/26/18 10:50 Dose: 5 mg Heparin Sodium (Porcine) (Heparin) 5,000 units SC BID [facility] Last Admin: 02/26/18 08:30 Dose: 5,000 units Hydralazine HCl (Apresoline) 10 mg SLOW IVP Q4H PRN PRN Reason: SBP > 180 and HR < 70 Last Admin: 02/21/18 00:35 Dose: 10 mg Dextrose/Water (D5w) 1,000 mls @ 0 mls/hr IV .Q0M PRN PRN Reason: Hypoglycemia Levetiracetam 1,000 mg/ Device 100 mls @ 200 mls/hr IVPB Q12HR [facility] Last Admin: 02/26/18 09:12 Dose: 100 mls Nicardipine HCl 25 mg/ Sodium (Chloride) 250 mls @ 0 mls/hr IVPB INF [facility]; Protocol Last Admin: 02/24/18 15:11 Dose: 250 mls Nicardipine HCl 25 mg/ Sodium (Chloride) 260 mls @ 0 mls/hr IVPB INF [facility]; Protocol Insulin Human Lispro (Humalog) 0 units SC .MODERATE SLIDING SC PRN PRN Reason: Moderate Correctional Scale Last Admin: 02/26/18 10:22 Dose: 2 unit Insulin Human Lispro (Humalog) 0 units SC .BEDTIME SLIDING SC PRN PRN Reason: Bedtime Correctional Scale Last Admin: 02/18/18 21:54 Dose: 4 unit Labetalol HCl (Normodyne) 20 mg SLOW IVP Q4H PRN PRN Reason: SBP > 180 and HR >/= 100 Last Admin: 02/26/18 15:03 Dose: 20 mg Labetalol HCl (Normodyne) 10 mg SLOW IVP Q8H [facility] Last Admin: 02/26/18 11:12 Dose: 10 mg Lorazepam (Ativan) 1 mg SLOW IVP Q1H PRN PRN Reason: Agitation Last Admin: 02/26/18 13:19 Dose: 1 mg Magnesium Hydroxide (Milk Of Magnesium) 30 ml PO BIDPRN PRN PRN Reason: Constipation Metoclopramide HCl (Reglan) 10 mg IVP Q6H PRN PRN Reason: Nausea/Vomiting Ondansetron HCl (Zofran) 4 mg IVP Q6H PRN PRN Reason: Nausea/Vomiting Scopolamine (Transderm Scop) 1.5 mg TD Q3D [facility] Last Admin: 02/24/18 12:54 Dose: 1.5 mg
[2018-02-26] MEDS: Atorvastatin Calcium 40 MG TAB PO SCH (20:01)
[2018-02-27] MEDS: Labetalol HCl 100 MG/20 ML VIAL SLOW IVP SCH ×3 (04:02→20:14)
[2018-02-27 06:55] LABS: Hemoglobin 12.9 g/dL (14.0-18.0); Mean Corpuscular HGB CONC 32.6 g/dL (32.0-36.0); Mean Corpuscular Hemoglobin 27.4 pg (27.0-31.0); Mean Platelet Volume 8.9 fL (7.4-10.4); Platelet Count 229 thou/uL (130-400); RBC Distribution Width 13.3 % (11.5-14.5); Red Blood Cell (RBC) Count 4.73 mill/uL (4.70-6.10)
[2018-02-27 07:01] LABS: Anion Gap 15 mmol/L (10-20); BUN (Urea Nitrogen) 16 mg/dL (8.4-25.7); Calc. Creatinine Clearance 0 mL/min (70-130); Calcium 8.8 mg/dL (7.8-10.44); Carbon Dioxide 27 mmol/L (23-31); Chloride 108 mmol/L (98-107); Estimated GFR-MDRD 75; Glucose 240 mg/dL (83-110); Potassium 3.4 mmol/L (3.5-5.1); Sodium 147 mmol/L (136-145)
[2018-02-27 07:30] LABS: Hypochromia SLIGHT = 6-15 cells (100X) (0-5/hpf); Lymphocytes 37 % (21-51); MDiff Complete? YES; Monocytes 4 % (0-10); Neutrophil 57 % (42-75); PLT Morphology Comment Appears Adequate; Polychromasia SLIGHT = 2-3 cells (100X) (0-2/hpf); Reactive Lymphocytes 2 % (0-10)
--- NOTE | 2018-02-27 08:12 | RAD ---
CHEST 1 VIEW: Date: 02/27/18 INDICATION: Intubation. COMPARISON: Prior exam dated 02/26/18. IMPRESSION: Feeding tube has been intervally placed and projects beyond the field of view below the left hemidiap hragm. Cardiomegaly persists. Pulmonary vascular congestion appears improved. No pleural effusion or pneumothorax is evident. Post CABG change is stable. POS: [facility]
--- NOTE | 2018-02-27 09:07 | PRG ---
DATE OF SERVICE: 02/27/2018 SUBJECTIVE: Mr. Muñiz is beginning to verbalize; however, much of what he says is incoherent. OBJECTIVE: VITAL SIGNS: His temperature is 100.4, with a T-max of 100.5, pulse 86, blood pressure 172/114, O2 sat 98%. HEENT: Unremarkable. NECK: No JVD. CHEST: Clear. CARDIAC: S1, S2. Regular. ABDOMEN: Soft. EXTREMITIES: No edema. LABORATORY DATA: White blood cell count 11, hematocrit 39.7, platelet count 229. Sodium 147, potassium 3.4, chloride 108, CO2 27, BUN 16, creatinine 1.1, glucose 240. ASSESSMENT: 1. Encephalopathy/encephalitis. 2. Status post seizures. 3. Improved mental status. PLAN: 1. Restart his enteral tube feeds. 2. Continue to follow in the CCU for the time being. Job ID: [id number]
[2018-02-27] MEDS: levETIRAcetam In NaCl (Iso-Os) 1,000 MG in Premix Bag 1 BAG IVPB SCH ×2 (09:26→20:13)
[2018-02-27] MEDS: Heparin 5,000 UNITS/ML VIAL SC SCH ×2 (09:27→20:14)
[2018-02-27] MEDS: Aspirin 300 MG Suppository PR SCH (09:27)
[2018-02-27] MEDS: Amlodipine 10 MG TAB PER TUBE SCH (09:27)
[2018-02-27] MEDS: Famotidine/PF 20 mg/2ml Vial SLOW IVP SCH ×2 (09:27→20:15)
[2018-02-27] MEDS: Scopolamine 1.5 mg/72 hour Patch TD SCH (11:27)
[2018-02-27] MEDS: HumaLOG 300 UNITS/3 ML VIAL SC PRN ×2 (11:30→18:12)
--- NOTE | 2018-02-27 13:16 | PDOC.PN ---
- Subjective Encounter Start Date: 02/27/18 Encounter Start Time: 10:00 Pt seen for followup re: acute encephalopathy. Able to state his name and date of . Otherwise, not answering questions reliably, could not complete ROS. - Objective MAR Reviewed: Yes Vital Signs & Weight: Vital Signs (12 hours) Temp Pulse BP Pulse Ox 02/27/18 12:00 98.3 F 02/27/18 11:24 97 179/96 H 02/27/18 09:27 97 177/64 H 02/27/18 08:00 100 02/27/18 07:00 100.4 F H 02/27/18 04:02 105 H 176/104 H Weight Admit Weight 172 lb Weight 2.603 oz Most Recent Monitor Data Heart Rate from ECG 93 NIBP 133/71 NIBP BP-Mean 91 Respiration from ECG 29 SpO2 100 I&O: 02/26/18 02/27/18 02/28/18 06:59 06:59 06:59 Intake Total 1043 200 20 Output Total 3980 1900 470 [facility] -2937 -1700 -450 Result Diagrams: 02/27/18 06:31 02/27/18 06:31 Additional Labs: Accuchecks 02/27/18 02/26/18 02/26/18 11:30 23:19 16:17 POC Glucose 218 H 171 H 138 H EKG Reviewed by me: Yes (Tele: NSR) Phys Exam - Physical Examination Constitutional: NAD HEENT: moist MMs Neck: supple Respiratory: clear to auscultation bilateral Cardiovascular: RRR Gastrointestinal: soft Neurological: moves all 4 limbs Psychiatric: normal affect Dx/Plan (1) Acute encephalopathy Code(s): G93.40 - ENCEPHALOPATHY, UNSPECIFIED Status: Acute Comment: Improving, exact etiology unclear (2) Seizure Code(s): R56.9 - UNSPECIFIED CONVULSIONS Status: Acute Comment: on Keppra (3) DM2 (diabetes mellitus, type 2) Status: Chronic Comment: on insulin sliding scale - Plan * . Review of Systems - Medications/Allergies Allergies/Adverse Reactions: Allergies Allergy/AdvReac Type Severity Reaction Status Date / Time No Known Allergies Allergy Verified 06/20/17 23:36 Medications: Current Medications Acetaminophen (Tylenol) 650 mg [place] Q4H PRN PRN Reason: Headache/Fever/Mild Pain (1-3) Last Admin: 02/24/18 15:59 Dose: 650 mg Amlodipine Besylate (Norvasc) 10 mg PER TUBE DAILY [facility] Last Admin: 02/27/18 09:27 Dose: 10 mg Aspirin (Aspirin) 300 mg [place] DAILY [facility] Last Admin: 02/27/18 09:27 Dose: 300 mg Atorvastatin Calcium (Lipitor) 40 mg PO HS [facility] Last Admin: 02/26/18 20:01 Dose: 40 mg Bisacodyl (Dulcolax) 10 mg [place] DAILYPRN PRN PRN Reason: Constipation Last Admin: 02/25/18 16:57 Dose: 10 mg Clonidine (Zhzyxpqe-Vhu-0) 0.2 mg TD Q7DAYS@1700 [facility] Last Admin: 02/25/18 17:31 Dose: 0.2 mg Dextrose/Water (Dextrose 50%) 25 gm SLOW IVP PRN PRN PRN Reason: Hypoglycemia Famotidine (Pepcid) 20 mg SLOW IVP Q12HR [facility] Last Admin: 02/27/18 09:27 Dose: 20 mg Glucagon (Glucagon) 1 mg IM PRN PRN PRN Reason: Hypoglycemia Heparin Sodium (Porcine) (Heparin) 5,000 units SC BID [facility] Last Admin: 02/27/18 09:27 Dose: 5,000 units Hydralazine HCl (Apresoline) 10 mg SLOW IVP Q4H PRN PRN Reason: SBP > 180 and HR < 70 Last Admin: 02/21/18 00:35 Dose: 10 mg Dextrose/Water (D5w) 1,000 mls @ 0 mls/hr IV .Q0M PRN PRN Reason: Hypoglycemia Levetiracetam 1,000 mg/ Device 100 mls @ 200 mls/hr IVPB Q12HR [facility] Last Admin: 02/27/18 09:26 Dose: 100 mls Nicardipine HCl 25 mg/ Sodium (Chloride) 250 mls @ 0 mls/hr IVPB INF [facility]; Protocol Last Admin: 02/24/18 15:11 Dose: 250 mls Nicardipine HCl 25 mg/ Sodium (Chloride) 260 mls @ 0 mls/hr IVPB INF [facility]; Protocol Insulin Human Lispro (Humalog) 0 units SC .MODERATE SLIDING SC PRN PRN Reason: Moderate Correctional Scale Last Admin: 02/27/18 11:30 Dose: 4 unit Insulin Human Lispro (Humalog) 0 units SC .BEDTIME SLIDING SC PRN PRN Reason: Bedtime Correctional Scale Last Admin: 02/18/18 21:54 Dose: 4 unit Labetalol HCl (Normodyne) 20 mg SLOW IVP Q4H PRN PRN Reason: SBP > 180 and HR >/= 100 Last Admin: 02/26/18 23:14 Dose: 20 mg Labetalol HCl (Normodyne) 10 mg SLOW IVP Q8H [facility] Last Admin: 02/27/18 11:24 Dose: 10 mg Lorazepam (Ativan) 1 mg SLOW IVP Q1H PRN PRN Reason: Agitation Last Admin: 02/26/18 13:19 Dose: 1 mg Magnesium Hydroxide (Milk Of Magnesium) 30 ml PO BIDPRN PRN PRN Reason: Constipation Metoclopramide HCl (Reglan) 10 mg IVP Q6H PRN PRN Reason: Nausea/Vomiting Ondansetron HCl (Zofran) 4 mg IVP Q6H PRN PRN Reason: Nausea/Vomiting Scopolamine (Transderm Scop) 1.5 mg TD Q3D [facility] Last Admin: 02/27/18 11:27 Dose: 1.5 mg
--- NOTE | 2018-02-27 14:53 | EKG ---
Test Reason : STROKE Blood Pressure : / mmHG Vent. Rate : 124 BPM Atrial Rate : 124 BPM P-R Int : 130 ms QRS Dur : 112 ms QT Int : 328 ms P-R-T Axes : 061 087 010 degrees QTc Int : 471 ms Sinus tachycardia with occasional Premature ventricular complexes Biatrial enlargement Incomplete right bundle branch block Possible Inferior infarct , age undetermined Abnormal ECG Confirmed by GABY CHINCHILLA, JOSE Flores ([id number]), staff editor MOHAMUD KIRBY ([id number]) on 02/27/2018 2:52:35 PM Referred By: Confirmed By:JOSE GRIFFIN MD
[2018-02-27] MEDS: Atorvastatin Calcium 40 MG TAB PO SCH (20:15)
[2018-02-28] MEDS: Labetalol HCl 100 MG/20 ML VIAL SLOW IVP SCH ×3 (05:49→20:46)
[2018-02-28] MEDS: HumaLOG 300 UNITS/3 ML VIAL SC PRN ×3 (05:51→21:05)
[2018-02-28 07:21] LABS: Anion Gap 15 mmol/L (10-20); BUN (Urea Nitrogen) 19 mg/dL (8.4-25.7); Calc. Creatinine Clearance 0 mL/min (70-130); Calcium 8.9 mg/dL (7.8-10.44); Carbon Dioxide 28 mmol/L (23-31); Chloride 108 mmol/L (98-107); Estimated GFR-MDRD 73; Glucose 323 mg/dL (83-110); Potassium 3.3 mmol/L (3.5-5.1); Sodium 148 mmol/L (136-145)
[2018-02-28] MEDS: Aspirin 300 MG Suppository PR SCH (08:38)
[2018-02-28] MEDS: Famotidine/PF 20 mg/2ml Vial SLOW IVP SCH ×2 (08:38→20:49)
[2018-02-28] MEDS: Heparin 5,000 UNITS/ML VIAL SC SCH ×2 (08:38→20:49)
[2018-02-28] MEDS: Amlodipine 10 MG TAB PER TUBE SCH (08:38)
[2018-02-28] MEDS: levETIRAcetam In NaCl (Iso-Os) 1,000 MG in Premix Bag 1 BAG IVPB SCH ×2 (08:39→20:50)
[2018-02-28 09:53] LABS: Hemoglobin 12.7 g/dL (14.0-18.0); Mean Corpuscular HGB CONC 31.6 g/dL (32.0-36.0); Mean Corpuscular Hemoglobin 26.8 pg (27.0-31.0); Mean Platelet Volume 9.1 fL (7.4-10.4); Platelet Count 242 thou/uL (130-400); RBC Distribution Width 13.4 % (11.5-14.5); Red Blood Cell (RBC) Count 4.73 mill/uL (4.70-6.10); White Blood Cell (WBC) Count 8.3 thou/uL (4.8-10.8)
[2018-02-28 09:55] LABS: Hypochromia SLIGHT = 6-15 cells (100X) (0-5/hpf); Lymphocytes 30 % (21-51); MDiff Complete? YES; Microcytosis SLIGHT = 6-15 cells (100X) (0-5/hpf); Monocytes 11 % (0-10); Neutrophil 56 % (42-75); PLT Morphology Comment Appears Adequate; Polychromasia SLIGHT = 2-3 cells (100X) (0-2/hpf); Reactive Lymphocytes 3 % (0-10)
[2018-02-28] MEDS: Insulin Glargine 25 UNITS in Pre-Filled Syringe 1 EACH SC SCH (10:17)
--- NOTE | 2018-02-28 13:01 | PDOC.PN ---
- Subjective Encounter Start Date: 02/28/18 Encounter Start Time: 09:20 Pt seen for followup re: acute encephalopathy. Denies chest pain, shortness of breath, fevers or chills. - Objective Vital Signs & Weight: Vital Signs (12 hours) Temp Pulse BP Pulse Ox 02/28/18 12:23 92 165/91 H 02/28/18 11:00 98.4 F 02/28/18 08:38 83 155/81 H 02/28/18 08:00 98.8 F 98 02/28/18 05:49 97 179/96 H Weight Admit Weight 172 lb Weight 2.582 oz Most Recent Monitor Data Heart Rate from ECG 86 NIBP 165/91 NIBP BP-Mean 115 Respiration from ECG 33 SpO2 97 I&O: 02/27/18 02/28/18 03/01/18 06:59 06:59 06:59 Intake Total 200 836 430 Output Total 1900 1375 295 Balance -1700 -539 135 Result Diagrams: 02/28/18 06:20 02/28/18 06:20 Additional Labs: Accuchecks 02/28/18 02/28/18 02/27/18 10:17 05:51 20:13 POC Glucose 273 H 284 H 168 H 02/27/18 17:39 POC Glucose 233 H Phys Exam - Physical Examination Constitutional: NAD HEENT: moist MMs Neck: supple Respiratory: clear to auscultation bilateral Cardiovascular: RRR Gastrointestinal: positive bowel sounds Neurological: moves all 4 limbs Psychiatric: normal affect Deviation from normal: Oriented to self only Dx/Plan (1) Acute encephalopathy Code(s): G93.40 - ENCEPHALOPATHY, UNSPECIFIED Status: Acute Comment: Improving (2) Seizure Code(s): R56.9 - UNSPECIFIED CONVULSIONS Status: Acute Comment: continue Keppra (3) DM2 (diabetes mellitus, type 2) Status: Chronic Comment: continue insulin sliding scale - Plan * . Review of Systems - Review of Systems Respiratory: negative: Cough, Shortness of Breath, SOB with Excertion, Pleuritic Pain, Wheezing Cardiovascular: negative: chest pain, palpitations, orthopnea, paroxysmal nocturnal dyspnea, edema, light headedness - Medications/Allergies Allergies/Adverse Reactions: Allergies Allergy/AdvReac Type Severity Reaction Status Date / Time No Known Allergies Allergy Verified 06/20/17 23:36 Medications: Current Medications Acetaminophen (Tylenol) [address] Q4H PRN PRN Reason: Headache/Fever/Mild Pain (1-3) Last Admin: 02/24/18 15:59 Dose: 650 mg Amlodipine Besylate (Norvasc) 10 mg PER TUBE DAILY [facility] Last Admin: 02/28/18 08:38 Dose: 10 mg Aspirin (Aspirin) [address] DAILY [facility] Last Admin: 02/28/18 08:38 Dose: 300 mg Atorvastatin Calcium (Lipitor) 40 mg PO HS [facility] Last Admin: 02/27/18 20:15 Dose: 40 mg Bisacodyl (Dulcolax) [address] DAILYPRN PRN PRN Reason: Constipation Last Admin: 02/25/18 16:57 Dose: 10 mg Clonidine (Fdozvoow-Wlk-4) 0.2 mg TD Q7DAYS@1700 [facility] Last Admin: 02/25/18 17:31 Dose: 0.2 mg Dextrose/Water (Dextrose 50%) 25 gm SLOW IVP PRN PRN PRN Reason: Hypoglycemia Famotidine (Pepcid) 20 mg SLOW IVP Q12HR [facility] Last Admin: 02/28/18 08:38 Dose: 20 mg Glucagon (Glucagon) 1 mg IM PRN PRN PRN Reason: Hypoglycemia Heparin Sodium (Porcine) (Heparin) 5,000 units SC BID [facility] Last Admin: 02/28/18 08:38 Dose: 5,000 units Hydralazine HCl (Apresoline) 10 mg SLOW IVP Q4H PRN PRN Reason: SBP > 180 and HR < 70 Last Admin: 02/21/18 00:35 Dose: 10 mg Dextrose/Water (D5w) 1,000 mls @ 0 mls/hr IV .Q0M PRN PRN Reason: Hypoglycemia Levetiracetam 1,000 mg/ Device 100 mls @ 200 mls/hr IVPB Q12HR [facility] Last Admin: 02/28/18 08:39 Dose: 100 mls Nicardipine HCl 25 mg/ Sodium (Chloride) 250 mls @ 0 mls/hr IVPB INF [facility]; Protocol Last Admin: 02/24/18 15:11 Dose: 250 mls Nicardipine HCl 25 mg/ Sodium (Chloride) 260 mls @ 0 mls/hr IVPB INF [facility]; Protocol Insulin Glargine 25 units/ (Miscellaneous Medication) 0.25 mls @ 0 mls/hr SC QAM [facility] Last Admin: 02/28/18 10:17 Dose: 0.25 mls Insulin Human Lispro (Humalog) 0 units SC .MODERATE SLIDING SC PRN PRN Reason: Moderate Correctional Scale Last Admin: 02/28/18 05:51 Dose: 6 unit Insulin Human Lispro (Humalog) 0 units SC .BEDTIME SLIDING SC PRN PRN Reason: Bedtime Correctional Scale Last Admin: 02/18/18 21:54 Dose: 4 unit Labetalol HCl (Normodyne) 20 mg SLOW IVP Q4H PRN PRN Reason: SBP > 180 and HR >/= 100 Last Admin: 02/26/18 23:14 Dose: 20 mg Labetalol HCl (Normodyne) 10 mg SLOW IVP Q8H [facility] Last Admin: 02/28/18 12:23 Dose: 10 mg Lorazepam (Ativan) 1 mg SLOW IVP Q1H PRN PRN Reason: Agitation Last Admin: 02/26/18 13:19 Dose: 1 mg Magnesium Hydroxide (Milk Of Magnesium) 30 ml PO BIDPRN PRN PRN Reason: Constipation Metoclopramide HCl (Reglan) 10 mg IVP Q6H PRN PRN Reason: Nausea/Vomiting Ondansetron HCl (Zofran) 4 mg IVP Q6H PRN PRN Reason: Nausea/Vomiting Scopolamine (Transderm Scop) 1.5 mg TD Q3D [facility] Last Admin: 02/27/18 11:27 Dose: 1.5 mg
[2018-02-28] MEDS: Atorvastatin Calcium 40 MG TAB PO SCH (20:49)
[2018-03-01] MEDS: Labetalol HCl 100 MG/20 ML VIAL SLOW IVP SCH ×3 (03:19→20:20)
[2018-03-01 05:54] LABS: Band 4 % (5-11); Eosinophils 1 % (0-10); Hemoglobin 12.3 g/dL (14.0-18.0); Lymphocytes 32 % (21-51); MDiff Complete? YES; Mean Corpuscular HGB CONC 31.5 g/dL (32.0-36.0); Mean Corpuscular Hemoglobin 27.2 pg (27.0-31.0); Mean Corpuscular Volume 86.3 fL (78.0-98.0); Monocytes 4 % (0-10); Neutrophil 59 % (42-75); PLT Morphology Comment Appears Adequate; Platelet Count 254 thou/uL (130-400); RBC Distribution Width 13.6 % (11.5-14.5); Red Blood Cell (RBC) Count 4.52 mill/uL (4.70-6.10); White Blood Cell (WBC) Count 9.2 thou/uL (4.8-10.8)
[2018-03-01 06:01] LABS: Anion Gap 13 mmol/L (10-20); BUN (Urea Nitrogen) 20 mg/dL (8.4-25.7); Calc. Creatinine Clearance 0 mL/min (70-130); Calcium 8.8 mg/dL (7.8-10.44); Carbon Dioxide 30 mmol/L (23-31); Chloride 110 mmol/L (98-107); Estimated GFR-MDRD 74; Glucose 333 mg/dL (83-110); Potassium 3.7 mmol/L (3.5-5.1); Sodium 149 mmol/L (136-145)
[2018-03-01] MEDS: HumaLOG 300 UNITS/3 ML VIAL SC PRN ×2 (06:45→16:55)
--- NOTE | 2018-03-01 07:49 | PRG ---
DATE OF SERVICE: 02/28/2018 SUBJECTIVE: Today, he is up in his chair. He is alert to person and date of , otherwise remains disoriented. He is currently being fed through a Dobbhoff tube in his nose. OBJECTIVE: VITAL SIGNS: Temperature is 99.0, pulse 91, blood pressure 176/97. 24-hour intake 1043, output 1308. HEENT: Unremarkable. NECK: No JVD. CHEST: Clear without wheezing. CARDIAC: S1 and S2, regular. ABDOMEN: Soft. EXTREMITIES: No edema. LABORATORY DATA: Sodium 140, potassium 3.3, chloride 108, CO2 28, BUN 19, creatinine 1.3, glucose 323. ASSESSMENT: 1. Continued encephalopathy that is improving. 2. Status post seizures. 3. Fully improved mental status. 4. Elevated glucose. PLAN: 1. Given his persistently elevated glucose, we will go ahead and start him on some Lantus insulin in the morning. 2. Probably okay to go to [facility] from my standpoint. Job ID: [id number]
[2018-03-01] MEDS: Aspirin 300 MG Suppository PR SCH (09:59)
[2018-03-01] MEDS: Amlodipine 10 MG TAB PER TUBE SCH (10:02)
[2018-03-01] MEDS: Famotidine/PF 20 mg/2ml Vial SLOW IVP SCH ×2 (10:04→21:19)
[2018-03-01] MEDS: Heparin 5,000 UNITS/ML VIAL SC SCH ×2 (10:04→21:20)
[2018-03-01] MEDS: Insulin Glargine 25 UNITS in Pre-Filled Syringe 1 EACH SC SCH (10:08)
[2018-03-01] MEDS: levETIRAcetam In NaCl (Iso-Os) 1,000 MG in Premix Bag 1 BAG IVPB SCH ×2 (10:09→21:19)
--- NOTE | 2018-03-01 12:51 | PDOC.PN ---
- Subjective Encounter Start Date: 03/01/18 Encounter Start Time: 09:20 Pt seen for followup re: acute encephalopathy. Able to tell me his birthdate and name, does not know where he is. Denies any complaints, but not answering questions reliably. Could not complete ROS. - Objective MAR Reviewed: Yes Vital Signs & Weight: Vital Signs (12 hours) Temp Pulse Pulse BP BP Pulse Ox 03/01/18 10:02 90 138/79 03/01/18 08:42 115 H 167/89 H 03/01/18 07:52 95 03/01/18 06:00 98.4 F 03/01/18 03:19 85 138/79 03/01/18 01:00 98.8 F Weight Admit Weight 172 lb Weight 160 lb 14.999 oz Most Recent Monitor Data Heart Rate from ECG 81 NIBP 157/81 NIBP BP-Mean 106 Respiration from ECG 22 SpO2 95 I&O: 02/28/18 03/01/18 03/02/18 06:59 06:59 06:59 Intake Total 836 1361 Output Total 1375 1025 60 Balance -539 336 -60 Result Diagrams: 03/01/18 04:32 03/01/18 04:32 Additional Labs: Accuchecks 02/28/18 02/28/18 20:36 16:02 POC Glucose 190 H 292 H EKG Reviewed by me: Yes (Tele: NSR) Phys Exam - Physical Examination Constitutional: NAD HEENT: moist MMs Neck: supple Respiratory: clear to auscultation bilateral Cardiovascular: RRR Gastrointestinal: soft Neurological: moves all 4 limbs Psychiatric: normal affect Dx/Plan (1) Acute encephalopathy Code(s): G93.40 - ENCEPHALOPATHY, UNSPECIFIED Status: Acute Comment: slowly improving (2) Seizure Code(s): R56.9 - UNSPECIFIED CONVULSIONS Status: Acute Comment: on Keppra (3) DM2 (diabetes mellitus, type 2) Status: Chronic Comment: Increase Lantus dose to 30 units Q AM, continue insulin sliding scale - Plan * . Review of Systems - Medications/Allergies Allergies/Adverse Reactions: Allergies Allergy/AdvReac Type Severity Reaction Status Date / Time No Known Allergies Allergy Verified 06/20/17 23:36 Medications: Current Medications Acetaminophen (Tylenol) 650 mg [place] Q4H PRN PRN Reason: Headache/Fever/Mild Pain (1-3) Last Admin: 02/24/18 15:59 Dose: 650 mg Amlodipine Besylate (Norvasc) 10 mg PER TUBE DAILY [facility] Last Admin: 03/01/18 10:02 Dose: 10 mg Aspirin (Aspirin) 300 mg OR DAILY [facility] Last Admin: 02/28/18 08:38 Dose: 300 mg Atorvastatin Calcium (Lipitor) 40 mg PO HS [facility] Last Admin: 02/28/18 20:49 Dose: 40 mg Bisacodyl (Dulcolax) 10 mg OR DAILYPRN PRN PRN Reason: Constipation Last Admin: 02/25/18 16:57 Dose: 10 mg Clonidine (Mhmgszof-Hru-4) 0.2 mg TD Q7DAYS@1700 [facility] Last Admin: 02/25/18 17:31 Dose: 0.2 mg Dextrose/Water (Dextrose 50%) 25 gm SLOW IVP PRN PRN PRN Reason: Hypoglycemia Famotidine (Pepcid) 20 mg SLOW IVP Q12HR [facility] Last Admin: 03/01/18 10:04 Dose: 20 mg Glucagon (Glucagon) 1 mg IM PRN PRN PRN Reason: Hypoglycemia Heparin Sodium (Porcine) (Heparin) 5,000 units SC BID [facility] Last Admin: 03/01/18 10:04 Dose: 5,000 units Hydralazine HCl (Apresoline) 10 mg SLOW IVP Q4H PRN PRN Reason: SBP > 180 and HR < 70 Last Admin: 02/21/18 00:35 Dose: 10 mg Dextrose/Water (D5w) 1,000 mls @ 0 mls/hr IV .Q0M PRN PRN Reason: Hypoglycemia Levetiracetam 1,000 mg/ Device 100 mls @ 200 mls/hr IVPB Q12HR [facility] Last Admin: 03/01/18 10:09 Dose: 100 mls Nicardipine HCl 25 mg/ Sodium (Chloride) 250 mls @ 0 mls/hr IVPB INF [facility]; Protocol Last Admin: 02/24/18 15:11 Dose: 250 mls Nicardipine HCl 25 mg/ Sodium (Chloride) 260 mls @ 0 mls/hr IVPB INF [facility]; Protocol Insulin Glargine 25 units/ (Miscellaneous Medication) 0.25 mls @ 0 mls/hr SC QAM [facility] Last Admin: 03/01/18 10:08 Dose: 0.25 mls Insulin Human Lispro (Humalog) 0 units SC .MODERATE SLIDING SC PRN PRN Reason: Moderate Correctional Scale Last Admin: 03/01/18 06:45 Dose: 8 unit Insulin Human Lispro (Humalog) 0 units SC .BEDTIME SLIDING SC PRN PRN Reason: Bedtime Correctional Scale Last Admin: 02/18/18 21:54 Dose: 4 unit Labetalol HCl (Normodyne) 20 mg SLOW IVP Q4H PRN PRN Reason: SBP > 180 and HR >/= 100 Last Admin: 02/26/18 23:14 Dose: 20 mg Labetalol HCl (Normodyne) 10 mg SLOW IVP Q8H [facility] Last Admin: 03/01/18 03:19 Dose: 10 mg Lorazepam (Ativan) 1 mg SLOW IVP Q1H PRN PRN Reason: Agitation Last Admin: 02/26/18 13:19 Dose: 1 mg Magnesium Hydroxide (Milk Of Magnesium) 30 ml PO BIDPRN PRN PRN Reason: Constipation Metoclopramide HCl (Reglan) 10 mg IVP Q6H PRN PRN Reason: Nausea/Vomiting Ondansetron HCl (Zofran) 4 mg IVP Q6H PRN PRN Reason: Nausea/Vomiting Scopolamine (Transderm Scop) 1.5 mg TD Q3D [facility] Last Admin: 02/27/18 11:27 Dose: 1.5 mg
--- NOTE | 2018-03-01 14:47 | PRG ---
DATE OF SERVICE: 03/01/2018 SUBJECTIVE: Mr. Muñiz reached out to shake my hand when I walked in the room today. OBJECTIVE: VITAL SIGNS: He is afebrile. Blood pressure 138/79, oximetry is 95 on room air, heart rate 115, heart rate was 81 earlier. LUNGS: Clear. HEART: Regular rhythm. ABDOMEN: Soft. He is trying to speak and is actually speaking in short sentences. LABORATORY DATA: White count is 89.2, hemoglobin 12.3, platelets 254, sodium 149, potassium 3.7, chloride 110, bicarb 30, BUN 20, creatinine 1.14. IMPRESSION: Encephalitis with improving symptoms. He is protecting his airway adequately. He is receiving his nutrition through a Dobbhoff tube. He has had no recurrent seizures. Blood glucoses have been elevated, so Lantus insulin has been started. Continue supportive care. Job ID: [id number]
[2018-03-01] MEDS: Atorvastatin Calcium 40 MG TAB PO SCH (21:19)
[2018-03-02] MEDS: hydrALAZINE 20 MG/ML VIAL SLOW IVP PRN (02:07)
[2018-03-02] MEDS: Labetalol HCl 100 MG/20 ML VIAL SLOW IVP SCH ×3 (04:17→20:29)
[2018-03-02] MEDS: HumaLOG 300 UNITS/3 ML VIAL SC PRN ×2 (04:43→10:15)
[2018-03-02 05:22] LABS: Hemoglobin 12.6 g/dL (14.0-18.0); Hypochromia SLIGHT = 6-15 cells (100X) (0-5/hpf); Lymphocytes 32 % (21-51); MDiff Complete? YES; Mean Corpuscular HGB CONC 31.9 g/dL (32.0-36.0); Mean Corpuscular Hemoglobin 27.3 pg (27.0-31.0); Mean Corpuscular Volume 85.5 fL (78.0-98.0); Neutrophil 68 % (42-75); PLT Morphology Comment Appears Adequate; Platelet Count 263 thou/uL (130-400); RBC Distribution Width 13.5 % (11.5-14.5); Red Blood Cell (RBC) Count 4.62 mill/uL (4.70-6.10)
[2018-03-02 05:28] LABS: Anion Gap 11 mmol/L (10-20); BUN (Urea Nitrogen) 19 mg/dL (8.4-25.7); Calc. Creatinine Clearance 49 mL/min (70-130); Calcium 8.7 mg/dL (7.8-10.44); Carbon Dioxide 31 mmol/L (23-31); Chloride 109 mmol/L (98-107); Estimated GFR-MDRD 74; Glucose 342 mg/dL (83-110); Potassium 3.3 mmol/L (3.5-5.1); Sodium 148 mmol/L (136-145)
[2018-03-02] MEDS: Amlodipine 10 MG TAB PER TUBE SCH (08:26)
[2018-03-02] MEDS: Aspirin 325 MG TAB PO SCH (08:26)
[2018-03-02] MEDS: Heparin 5,000 UNITS/ML VIAL SC SCH ×2 (08:27→20:29)
[2018-03-02] MEDS: Famotidine/PF 20 mg/2ml Vial SLOW IVP SCH ×2 (08:27→20:28)
[2018-03-02] MEDS: levETIRAcetam In NaCl (Iso-Os) 1,000 MG in Premix Bag 1 BAG IVPB SCH ×2 (08:37→20:31)
[2018-03-02] MEDS: Insulin Glargine 30 UNITS in Pre-Filled Syringe 1 EACH SC SCH (08:38)
--- NOTE | 2018-03-02 12:47 | PDOC.PN ---
- Subjective Encounter Start Date: 03/02/18 Encounter Start Time: 08:40 Pt seen for followup re: acute metabolic encephalopathy. Denies chest pain, shortness of breath, fevers or chills. - Objective MAR Reviewed: Yes Vital Signs & Weight: Vital Signs (12 hours) Temp Pulse Pulse Pulse BP BP BP 03/02/18 12:00 99.5 F 03/02/18 11:07 89 102 H 140/81 157/86 H 03/02/18 08:26 112 H 155/85 H 03/02/18 08:00 100 F H 03/02/18 04:17 112 H 155/85 H 03/02/18 04:00 98.2 F 03/02/18 02:07 112 H 155/85 H Pulse Ox Pulse Ox Pulse Ox 03/02/18 12:00 03/02/18 11:07 96 92 L 03/02/18 08:26 03/02/18 08:00 96 03/02/18 04:17 03/02/18 04:00 03/02/18 02:07 Weight Admit Weight 172 lb Weight 158 lb 15.253 oz Most Recent Monitor Data Heart Rate from ECG 95 NIBP 162/84 NIBP BP-Mean 110 Respiration from ECG 21 SpO2 100 I&O: 03/01/18 03/02/18 03/03/18 06:59 06:59 06:59 Intake Total 1361 2570 220 Output Total 1025 995 200 Balance 336 1575 20 Result Diagrams: 03/02/18 04:40 03/02/18 04:40 Additional Labs: Accuchecks 03/02/18 03/02/18 03/01/18 09:51 04:38 21:16 POC Glucose 253 H 298 H 166 H 03/01/18 03/01/18 16:55 13:02 POC Glucose 170 H 231 H EKG Reviewed by me: Yes (Tele; NSR) Phys Exam - Physical Examination Constitutional: NAD HEENT: moist MMs Neck: supple Respiratory: clear to auscultation bilateral Cardiovascular: RRR Gastrointestinal: soft Neurological: moves all 4 limbs Psychiatric: normal affect Deviation from normal: Oriented to self only Dx/Plan (1) Acute encephalopathy Code(s): G93.40 - ENCEPHALOPATHY, UNSPECIFIED Status: Acute Comment: slowly improving (2) Seizure Code(s): R56.9 - UNSPECIFIED CONVULSIONS Status: Acute Comment: will continue Keppra (3) DM2 (diabetes mellitus, type 2) Status: Chronic Comment: lantus dose increased yesterday - Plan * . Review of Systems - Review of Systems Cardiovascular: negative: chest pain, palpitations, orthopnea, paroxysmal nocturnal dyspnea, edema, light headedness Gastrointestinal: negative: Nausea, Vomiting, Abdominal Pain, Diarrhea, Constipation, Melena, Hematochezia - Medications/Allergies Allergies/Adverse Reactions: Allergies Allergy/AdvReac Type Severity Reaction Status Date / Time No Known Allergies Allergy Verified 06/20/17 23:36 Medications: Current Medications Acetaminophen (Tylenol) 650 mg [place] Q4H PRN PRN Reason: Headache/Fever/Mild Pain (1-3) Last Admin: 02/24/18 15:59 Dose: 650 mg Amlodipine Besylate (Norvasc) 10 mg PER TUBE DAILY [facility] Last Admin: 03/02/18 08:26 Dose: 10 mg Aspirin (Aspirin) 325 mg PO DAILY [facility] Last Admin: 03/02/18 08:26 Dose: 325 mg Atorvastatin Calcium (Lipitor) 40 mg PO HS [facility] Last Admin: 03/01/18 21:19 Dose: 40 mg Bisacodyl (Dulcolax) 10 mg [place] DAILYPRN PRN PRN Reason: Constipation Last Admin: 02/25/18 16:57 Dose: 10 mg Clonidine (Kgxzbrpc-Vyr-0) 0.2 mg TD Q7DAYS@1700 [facility] Last Admin: 02/25/18 17:31 Dose: 0.2 mg Dextrose/Water (Dextrose 50%) 25 gm SLOW IVP PRN PRN PRN Reason: Hypoglycemia Famotidine (Pepcid) 20 mg SLOW IVP Q12HR [facility] Last Admin: 03/02/18 08:27 Dose: 20 mg Glucagon (Glucagon) 1 mg IM PRN PRN PRN Reason: Hypoglycemia Heparin Sodium (Porcine) (Heparin) 5,000 units SC BID [facility] Last Admin: 03/02/18 08:27 Dose: 5,000 units Hydralazine HCl (Apresoline) 10 mg SLOW IVP Q4H PRN PRN Reason: SBP > 180 and HR < 70 Last Admin: 03/02/18 02:07 Dose: 10 mg Dextrose/Water (D5w) 1,000 mls @ 0 mls/hr IV .Q0M PRN PRN Reason: Hypoglycemia Levetiracetam 1,000 mg/ Device 100 mls @ 200 mls/hr IVPB Q12HR [facility] Last Admin: 03/02/18 08:37 Dose: 100 mls Nicardipine HCl 25 mg/ Sodium (Chloride) 250 mls @ 0 mls/hr IVPB INF [facility]; Protocol Last Admin: 02/24/18 15:11 Dose: 250 mls Nicardipine HCl 25 mg/ Sodium (Chloride) 260 mls @ 0 mls/hr IVPB INF [facility]; Protocol Insulin Glargine 30 units/ (Miscellaneous Medication) 0.3 mls @ 0 mls/hr SC QAM [facility] Last Admin: 03/02/18 08:38 Dose: 0.3 mls Insulin Human Lispro (Humalog) 0 units SC .MODERATE SLIDING SC PRN PRN Reason: Moderate Correctional Scale Last Admin: 03/02/18 10:15 Dose: 6 unit Insulin Human Lispro (Humalog) 0 units SC .BEDTIME SLIDING SC PRN PRN Reason: Bedtime Correctional Scale Last Admin: 02/18/18 21:54 Dose: 4 unit Labetalol HCl (Normodyne) 20 mg SLOW IVP Q4H PRN PRN Reason: SBP > 180 and HR >/= 100 Last Admin: 02/26/18 23:14 Dose: 20 mg Labetalol HCl (Normodyne) 10 mg SLOW IVP Q8H [facility] Last Admin: 03/02/18 04:17 Dose: 10 mg Lorazepam (Ativan) 1 mg SLOW IVP Q1H PRN PRN Reason: Agitation Last Admin: 02/26/18 13:19 Dose: 1 mg Magnesium Hydroxide (Milk Of Magnesium) 30 ml PO BIDPRN PRN PRN Reason: Constipation Metoclopramide HCl (Reglan) 10 mg IVP Q6H PRN PRN Reason: Nausea/Vomiting Ondansetron HCl (Zofran) 4 mg IVP Q6H PRN PRN Reason: Nausea/Vomiting Scopolamine (Transderm Scop) 1.5 mg TD Q3D [facility] Last Admin: 02/27/18 11:27 Dose: 1.5 mg
[2018-03-02] MEDS: Scopolamine 1.5 mg/72 hour Patch TD SCH (12:49)
[2018-03-02] MEDS ORDERED: Potassium Chloride 20 MEQ TAB PO SCH (13:00)
--- NOTE | 2018-03-02 13:57 | PRG ---
DATE OF SERVICE: 03/02/2018 SUBJECTIVE: Baltazar Muñiz continues to improve. He is sitting in a bedside chair, working with PT. He still slow to respond to questions. He is not oriented to place or time. OBJECTIVE: VITAL SIGNS: He is afebrile. Oximetry is 89% on room air. Blood pressure 140/81, heart rate 102, respiratory rate 16. He is in no distress. LUNGS: Clear. HEART: Regular rhythm. S1 and S2 normal. ABDOMEN: Soft and nontender. EXTREMITIES: Without edema. LABORATORY DATA: White count 10, hemoglobin 12.6, platelets 263. Sodium 148, potassium 3.3, chloride 109, bicarbonate 31, BUN 19, creatinine 1.14. IMPRESSION: Encephalitis, clinically improving. PLAN: Continue supportive care, will probably move out of the Critical Care Unit to the Stroke Unit. Job ID: [id number]
[2018-03-02] MEDS: Lorazepam 2 MG/ML VIAL SLOW IVP PRN (14:57)
[2018-03-02] MEDS: Atorvastatin Calcium 40 MG TAB PO SCH (20:28)
[2018-03-03] MEDS: Labetalol HCl 100 MG/20 ML VIAL SLOW IVP SCH (03:37)
[2018-03-03 05:16] LABS: Band 4 % (5-11); Eosinophils 2 % (0-10); Hemoglobin 13.4 g/dL (14.0-18.0); Lymphocytes 41 % (21-51); MDiff Complete? YES; Mean Corpuscular HGB CONC 30.9 g/dL (32.0-36.0); Mean Corpuscular Hemoglobin 27.1 pg (27.0-31.0); Mean Corpuscular Volume 87.7 fL (78.0-98.0); Mean Platelet Volume 9.1 fL (7.4-10.4); Monocytes 3 % (0-10); Neutrophil 50 % (42-75); PLT Morphology Comment Appears Adequate; Platelet Count 244 thou/uL (130-400); RBC Distribution Width 13.8 % (11.5-14.5); Red Blood Cell (RBC) Count 4.93 mill/uL (4.70-6.10); White Blood Cell (WBC) Count 10.2 thou/uL (4.8-10.8)
[2018-03-03 05:32] LABS: Anion Gap 15 mmol/L (10-20); BUN (Urea Nitrogen) 13 mg/dL (8.4-25.7); Calc. Creatinine Clearance 58 mL/min (70-130); Calcium 8.6 mg/dL (7.8-10.44); Carbon Dioxide 28 mmol/L (23-31); Chloride 112 mmol/L (98-107); Estimated GFR-MDRD Greater than 90; Glucose 127 mg/dL (83-110); Potassium 3.6 mmol/L (3.5-5.1); Sodium 151 mmol/L (136-145)
[2018-03-03] MEDS: Amlodipine 10 MG TAB PER TUBE SCH (09:55)
[2018-03-03] MEDS: Aspirin 325 MG TAB PO SCH (09:55)
[2018-03-03] MEDS: Famotidine/PF 20 mg/2ml Vial SLOW IVP SCH ×2 (09:56→22:58)
[2018-03-03] MEDS: Heparin 5,000 UNITS/ML VIAL SC SCH ×2 (09:56→22:58)
[2018-03-03] MEDS: levETIRAcetam In NaCl (Iso-Os) 1,000 MG in Premix Bag 1 BAG IVPB SCH ×2 (09:56→22:58)
[2018-03-03] MEDS: Insulin Glargine 30 UNITS in Pre-Filled Syringe 1 EACH SC SCH (13:06)
[2018-03-03] MEDS: HumaLOG 300 UNITS/3 ML VIAL SC PRN ×2 (13:09→16:11)
[2018-03-03] MEDS: Lorazepam 2 MG/ML VIAL SLOW IVP PRN (13:12)
--- NOTE | 2018-03-03 14:06 | PRG ---
DATE OF SERVICE: 03/03/2018 SUBJECTIVE: Mr. Muñiz was sitting at the bedside. As I was walking in the room, he got up out of the chair, kneeled down, and crawled into the bed stating that he was looking for his shoes. I asked him to come out bed. He did immediately and climbed back up in his chair. OBJECTIVE: VITAL SIGNS: Blood pressure is now 167/91 and heart rate is 92. He is afebrile. Room air oximetry is 98% to 100%. GENERAL: He is moving all extremities equally. He is starting to talk a little more. His is pleased with his progress. She is in the room. LUNGS: Clear. HEART: Regular rhythm. ABDOMEN: Soft and nontender. EXTREMITIES: Without clubbing, cyanosis, or edema. LABORATORY STUDIES: White count is 10.2, hemoglobin 13.4, and platelets 244. Sodium 151, potassium 3.6, chloride 112, bicarb 28, BUN 13, and creatinine 0.95. IMPRESSION: 1. Encephalitis with seizures, clinically improving. 2. Mild hyperchloremia. 3. Hypertension. PLAN: Continues to clinically improve slowly, although he still encephalopathic, probably should remain in the critical care unit for now or be transferred down to the intermediate care unit if a bed is needed. Job ID: [id number]
--- NOTE | 2018-03-03 14:57 | PDOC.PN ---
- Subjective Encounter Start Date: 03/03/18 Encounter Start Time: 09:20 Pt seen for followup re: acute metabolic encephalopathy. Feels well, no complaints. - Objective MAR Reviewed: Yes Vital Signs & Weight: Vital Signs (12 hours) Temp Pulse Pulse BP BP Pulse Ox 03/03/18 12:00 98.7 F 03/03/18 09:55 92 167/91 H 03/03/18 08:47 111 H 163/87 H 03/03/18 08:00 98.2 F 98 03/03/18 03:37 112 H 159/88 H 03/03/18 03:00 98.6 F Weight Admit Weight 172 lb Weight 160 lb 14.999 oz Most Recent Monitor Data Heart Rate from ECG 86 NIBP 160/87 NIBP BP-Mean 111 Respiration from ECG 21 SpO2 100 I&O: 03/02/18 03/03/18 03/04/18 06:59 06:59 06:59 Intake Total 2570 1360 820 Output Total 995 1195 220 Balance 1575 165 600 Result Diagrams: 03/03/18 Unknown 03/03/18 03:30 Additional Labs: Accuchecks 03/03/18 03/03/18 12:35 00:29 POC Glucose 375 H 126 H EKG Reviewed by me: Yes (Tele: NSR) Phys Exam - Physical Examination Constitutional: NAD HEENT: moist MMs Neck: supple Respiratory: clear to auscultation bilateral Cardiovascular: RRR Gastrointestinal: soft Neurological: moves all 4 limbs Psychiatric: normal affect Dx/Plan (1) Acute encephalopathy Code(s): G93.40 - ENCEPHALOPATHY, UNSPECIFIED Status: Acute Comment: improving (2) Seizure Code(s): R56.9 - UNSPECIFIED CONVULSIONS Status: Acute Comment: on Keppra (3) DM2 (diabetes mellitus, type 2) Status: Chronic Comment: sugars trending down, change Lantus dose back to 25 units daily - Plan * . Review of Systems - Medications/Allergies Allergies/Adverse Reactions: Allergies Allergy/AdvReac Type Severity Reaction Status Date / Time No Known Allergies Allergy Verified 06/20/17 23:36 Medications: Current Medications Acetaminophen (Tylenol) 650 mg SC Q4H PRN PRN Reason: Headache/Fever/Mild Pain (1-3) Last Admin: 02/24/18 15:59 Dose: 650 mg Amlodipine Besylate (Norvasc) 10 mg PER TUBE DAILY [facility] Last Admin: 03/03/18 09:55 Dose: 10 mg Aspirin (Aspirin) 325 mg PO DAILY [facility] Last Admin: 03/03/18 09:55 Dose: 325 mg Atorvastatin Calcium (Lipitor) 40 mg PO HS [facility] Last Admin: 03/02/18 20:28 Dose: 40 mg Bisacodyl (Dulcolax) 10 mg SC DAILYPRN PRN PRN Reason: Constipation Last Admin: 02/25/18 16:57 Dose: 10 mg Clonidine (Knsxodol-Nqr-4) 0.2 mg TD Q7DAYS@1700 [facility] Last Admin: 02/25/18 17:31 Dose: 0.2 mg Dextrose/Water (Dextrose 50%) 25 gm SLOW IVP PRN PRN PRN Reason: Hypoglycemia Famotidine (Pepcid) 20 mg SLOW IVP Q12HR [facility] Last Admin: 03/03/18 09:56 Dose: 20 mg Glucagon (Glucagon) 1 mg IM PRN PRN PRN Reason: Hypoglycemia Heparin Sodium (Porcine) (Heparin) 5,000 units SC BID [facility] Last Admin: 03/03/18 09:56 Dose: 5,000 units Hydralazine HCl (Apresoline) 10 mg SLOW IVP Q4H PRN PRN Reason: SBP > 180 and HR < 70 Last Admin: 03/02/18 02:07 Dose: 10 mg Dextrose/Water (D5w) 1,000 mls @ 0 mls/hr IV .Q0M PRN PRN Reason: Hypoglycemia Levetiracetam 1,000 mg/ Device 100 mls @ 200 mls/hr IVPB Q12HR [facility] Last Admin: 03/03/18 09:56 Dose: 100 mls Nicardipine HCl 25 mg/ Sodium (Chloride) 250 mls @ 0 mls/hr IVPB INF [facility]; Protocol Last Admin: 02/24/18 15:11 Dose: 250 mls Nicardipine HCl 25 mg/ Sodium (Chloride) 260 mls @ 0 mls/hr IVPB INF [facility]; Protocol Insulin Glargine 25 units/ (Miscellaneous Medication) 0.25 mls @ 0 mls/hr SC QAM [facility] Insulin Human Lispro (Humalog) 0 units SC .MODERATE SLIDING SC PRN PRN Reason: Moderate Correctional Scale Last Admin: 03/02/18 10:15 Dose: 6 unit Insulin Human Lispro (Humalog) 0 units SC .BEDTIME SLIDING SC PRN PRN Reason: Bedtime Correctional Scale Last Admin: 03/03/18 13:09 Dose: 5 unit Labetalol HCl (Normodyne) 20 mg SLOW IVP Q4H PRN PRN Reason: SBP > 180 and HR >/= 100 Last Admin: 02/26/18 23:14 Dose: 20 mg Lorazepam (Ativan) 1 mg SLOW IVP Q1H PRN PRN Reason: Agitation Last Admin: 03/03/18 13:12 Dose: 1 mg Magnesium Hydroxide (Milk Of Magnesium) 30 ml PO BIDPRN PRN PRN Reason: Constipation Metoclopramide HCl (Reglan) 10 mg IVP Q6H PRN PRN Reason: Nausea/Vomiting Metoprolol Tartrate (Lopressor) 50 mg PO DAILY [facility] Ondansetron HCl (Zofran) 4 mg IVP Q6H PRN PRN Reason: Nausea/Vomiting Scopolamine (Transderm Scop) 1.5 mg TD Q3D [facility] Last Admin: 03/02/18 12:49 Dose: 1.5 mg
[2018-03-03] MEDS: Atorvastatin Calcium 40 MG TAB PO SCH (22:58)
[2018-03-04 06:45] LABS: Band 1 % (5-11); Lymphocytes 33 % (21-51); MDiff Complete? YES; Mean Corpuscular HGB CONC 30.4 g/dL (32.0-36.0); Mean Corpuscular Hemoglobin 25.8 pg (27.0-31.0); Mean Platelet Volume 9.3 fL (7.4-10.4); Monocytes 4 % (0-10); Neutrophil 61 % (42-75); Platelet Count 184 thou/uL (130-400); RBC Distribution Width 13.9 % (11.5-14.5); Reactive Lymphocytes 1 % (0-10); Red Blood Cell (RBC) Count 5.03 mill/uL (4.70-6.10); White Blood Cell (WBC) Count 9.9 thou/uL (4.8-10.8)
[2018-03-04 06:51] LABS: Anion Gap 12 mmol/L (10-20); BUN (Urea Nitrogen) 14 mg/dL (8.4-25.7); Calc. Creatinine Clearance 59 mL/min (70-130); Calcium 8.6 mg/dL (7.8-10.44); Carbon Dioxide 31 mmol/L (23-31); Chloride 108 mmol/L (98-107); Estimated GFR-MDRD Greater than 90; Glucose 142 mg/dL (83-110); Potassium 3.5 mmol/L (3.5-5.1); Sodium 147 mmol/L (136-145)
[2018-03-04] MEDS: Aspirin 325 MG TAB PO SCH (09:24)
[2018-03-04] MEDS: Amlodipine 10 MG TAB PER TUBE SCH (09:24)
[2018-03-04] MEDS: Metoprolol Tartrate 50 MG TAB PO SCH (09:24)
[2018-03-04] MEDS: Enoxaparin Sodium 40 MG/0.4 ML SYRINGE SC SCH (09:24)
[2018-03-04] MEDS: Famotidine 20 MG TAB PO SCH ×2 (09:25→20:55)
[2018-03-04] MEDS: Haloperidol Lactate 5 MG/ML VIAL IM SCH ×2 (09:25→20:56)
[2018-03-04] MEDS: Insulin Glargine 25 UNITS in Pre-Filled Syringe 1 EACH SC SCH (09:25)
[2018-03-04] MEDS: levETIRAcetam In NaCl (Iso-Os) 1,000 MG in Premix Bag 1 BAG IVPB SCH ×2 (09:26→20:59)
--- NOTE | 2018-03-04 11:48 | PRG ---
DATE OF SERVICE: 03/04/2018 SUBJECTIVE: Mr. Muñiz is still confused. He is and really trying to get out of bed. He has had to be restrained. He does know he is in [place] today. He is much more verbal than he was two days ago. OBJECTIVE: VITAL SIGNS: His vital signs have been stable. LUNGS: Clear. HEART: Regular rhythm. ABDOMEN: Soft and nontender. EXTREMITIES: Without asymmetry. IMPRESSION: Encephalitis. He cannot go to assisted until he no longer requires restraints. He can be sent to the intermediate care unit. I have started around the clock Magdiel to see if this helps. I am just going to it to him q.12 hours to see if this leads to a little better behavior and little less confusion. We will continue to follow. Job ID: [id number]
--- NOTE | 2018-03-04 12:17 | PDOC.PN ---
- Subjective Encounter Start Date: 03/04/18 Encounter Start Time: 09:40 Pt seen for followup re: acute encephalopathy. Oriented to place and person, not to time. - Objective MAR Reviewed: Yes Vital Signs & Weight: Vital Signs (12 hours) Temp Pulse Ox 03/04/18 11:00 98.9 F 03/04/18 08:00 98.2 F 99 03/04/18 04:00 98.0 F Weight Admit Weight 172 lb Weight 160 lb 14.999 oz Most Recent Monitor Data Heart Rate from ECG 80 NIBP 152/85 NIBP BP-Mean 107 Respiration from ECG 16 SpO2 98 I&O: 03/03/18 03/04/18 03/05/18 06:59 06:59 06:59 Intake Total 1360 1260 480 Output Total 1195 465 Balance 165 795 480 Result Diagrams: 03/04/18 06:04 03/04/18 06:04 Additional Labs: Accuchecks 03/04/18 03/04/18 03/04/18 11:13 06:36 00:26 POC Glucose 207 H 134 H 170 H 03/03/18 03/03/18 16:07 12:35 POC Glucose 194 H 375 H EKG Reviewed by me: Yes (Tele: NSR) Phys Exam - Physical Examination Constitutional: NAD HEENT: moist MMs Neck: supple Respiratory: clear to auscultation bilateral Cardiovascular: RRR Gastrointestinal: soft Neurological: moves all 4 limbs Psychiatric: normal affect Deviation from normal: Oriented to person and place Dx/Plan (1) Acute encephalopathy Code(s): G93.40 - ENCEPHALOPATHY, UNSPECIFIED Status: Acute Comment: improving (2) Seizure Code(s): R56.9 - UNSPECIFIED CONVULSIONS Status: Acute Comment: continue Keppra (3) DM2 (diabetes mellitus, type 2) Status: Chronic Comment: relatively controlled - Plan * . Review of Systems - Review of Systems Cardiovascular: negative: chest pain, palpitations, orthopnea, paroxysmal nocturnal dyspnea, edema, light headedness Gastrointestinal: negative: Nausea, Vomiting, Abdominal Pain, Diarrhea, Constipation, Melena, Hematochezia - Medications/Allergies Allergies/Adverse Reactions: Allergies Allergy/AdvReac Type Severity Reaction Status Date / Time No Known Allergies Allergy Verified 06/20/17 23:36 Medications: Current Medications Acetaminophen (Tylenol) 650 mg [place] Q4H PRN PRN Reason: Headache/Fever/Mild Pain (1-3) Last Admin: 02/24/18 15:59 Dose: 650 mg Amlodipine Besylate (Norvasc) 10 mg PER TUBE DAILY [facility] Last Admin: 03/04/18 09:24 Dose: 10 mg Aspirin (Aspirin) 325 mg PO DAILY [facility] Last Admin: 03/04/18 09:24 Dose: 325 mg Bisacodyl (Dulcolax) 10 mg [place] DAILYPRN PRN PRN Reason: Constipation Last Admin: 02/25/18 16:57 Dose: 10 mg Clonidine (Lbbhobwe-Elq-0) 0.2 mg TD Q7DAYS@1700 [facility] Last Admin: 02/25/18 17:31 Dose: 0.2 mg Dextrose/Water (Dextrose 50%) 25 gm SLOW IVP PRN PRN PRN Reason: Hypoglycemia Enoxaparin Sodium (Lovenox) 40 mg SC 0900 [facility] Last Admin: 03/04/18 09:24 Dose: 40 mg Famotidine (Pepcid) 20 mg PO BID [facility] Last Admin: 03/04/18 09:25 Dose: 20 mg Glucagon (Glucagon) 1 mg IM PRN PRN PRN Reason: Hypoglycemia Haloperidol Lactate (Haldol) 5 mg IM Q12HR [facility] Last Admin: 03/04/18 09:25 Dose: 5 mg Hydralazine HCl (Apresoline) 10 mg SLOW IVP Q4H PRN PRN Reason: SBP > 180 and HR < 70 Last Admin: 03/02/18 02:07 Dose: 10 mg Dextrose/Water (D5w) 1,000 mls @ 0 mls/hr IV .Q0M PRN PRN Reason: Hypoglycemia Levetiracetam 1,000 mg/ Device 100 mls @ 200 mls/hr IVPB Q12HR [facility] Last Admin: 03/04/18 09:26 Dose: 100 mls Insulin Glargine 25 units/ (Miscellaneous Medication) 0.25 mls @ 0 mls/hr SC QAM [facility] Last Admin: 03/04/18 09:25 Dose: 0.25 mls Insulin Human Lispro (Humalog) 0 units SC .MODERATE SLIDING SC PRN PRN Reason: Moderate Correctional Scale Last Admin: 03/03/18 16:11 Dose: 2 unit Insulin Human Lispro (Humalog) 0 units SC .BEDTIME SLIDING SC PRN PRN Reason: Bedtime Correctional Scale Last Admin: 03/03/18 13:09 Dose: 5 unit Labetalol HCl (Normodyne) 20 mg SLOW IVP Q4H PRN PRN Reason: SBP > 180 and HR >/= 100 Last Admin: 02/26/18 23:14 Dose: 20 mg Lorazepam (Ativan) 1 mg SLOW IVP Q1H PRN PRN Reason: Agitation Last Admin: 03/03/18 13:12 Dose: 1 mg Magnesium Hydroxide (Milk Of Magnesium) 30 ml PO BIDPRN PRN PRN Reason: Constipation Metoclopramide HCl (Reglan) 10 mg IVP Q6H PRN PRN Reason: Nausea/Vomiting Metoprolol Tartrate (Lopressor) 50 mg PO DAILY [facility] Last Admin: 03/04/18 09:24 Dose: 50 mg Ondansetron HCl (Zofran) 4 mg IVP Q6H PRN PRN Reason: Nausea/Vomiting Scopolamine (Transderm Scop) 1.5 mg TD Q3D [facility] Last Admin: 03/02/18 12:49 Dose: 1.5 mg
[2018-03-04] MEDS: cloNIDine 0.2mg/24 Hour PATCH TD SCH (18:34)
[2018-03-05] MEDS ORDERED: Morphine 4 MG/ML VIAL SLOW IVP SCH (06:15)
[2018-03-05 06:31] LABS: Anion Gap 12 mmol/L (10-20); BUN (Urea Nitrogen) 13 mg/dL (8.4-25.7); Calc. Creatinine Clearance 59 mL/min (70-130); Calcium 8.3 mg/dL (7.8-10.44); Carbon Dioxide 26 mmol/L (23-31); Chloride 107 mmol/L (98-107); Estimated GFR-MDRD 89; Glucose 138 mg/dL (83-110); Potassium 3.6 mmol/L (3.5-5.1); Sodium 141 mmol/L (136-145)
[2018-03-05 06:57] LABS: Hemoglobin 12.3 g/dL (14.0-18.0); Mean Corpuscular HGB CONC 31.4 g/dL (32.0-36.0); Mean Corpuscular Hemoglobin 26.6 pg (27.0-31.0); Mean Corpuscular Volume 84.8 fL (78.0-98.0); Mean Platelet Volume 9.4 fL (7.4-10.4); Platelet Count 182 thou/uL (130-400); RBC Distribution Width 13.7 % (11.5-14.5); Red Blood Cell (RBC) Count 4.63 mill/uL (4.70-6.10); White Blood Cell (WBC) Count 9.1 thou/uL (4.8-10.8)
[2018-03-05 07:03] LABS: Band 6 % (5-11); Eosinophils 2 % (0-10); Lymphocytes 32 % (21-51); MDiff Complete? YES; Monocytes 5 % (0-10); Neutrophil 55 % (42-75)
[2018-03-05] MEDS: Aspirin 325 MG TAB PO SCH (09:22)
[2018-03-05] MEDS: Amlodipine 10 MG TAB PER TUBE SCH (09:22)
[2018-03-05] MEDS: Famotidine 20 MG TAB PO SCH ×2 (09:23→20:25)
[2018-03-05] MEDS: Haloperidol Lactate 5 MG/ML VIAL IM SCH ×2 (09:23→20:25)
[2018-03-05] MEDS: levETIRAcetam In NaCl (Iso-Os) 1,000 MG in Premix Bag 1 BAG IVPB SCH ×2 (09:23→20:25)
[2018-03-05] MEDS: Insulin Glargine 25 UNITS in Pre-Filled Syringe 1 EACH SC SCH (09:23)
[2018-03-05] MEDS: Enoxaparin Sodium 40 MG/0.4 ML SYRINGE SC SCH (09:23)
[2018-03-05] MEDS: Metoprolol Tartrate 50 MG TAB PO SCH (09:24)
[2018-03-05] MEDS: HumaLOG 300 UNITS/3 ML VIAL SC PRN (11:55)
[2018-03-05] MEDS: Scopolamine 1.5 mg/72 hour Patch TD SCH (11:55)
--- NOTE | 2018-03-05 13:27 | PRG ---
DATE OF SERVICE: 03/05/2018 SUBJECTIVE: Mr. Muñiz is doing well. He is more cooperative. He does have a sitter in the room. OBJECTIVE: VITAL SIGNS: He is afebrile, heart rate 71, respiratory rates in the low 20s, and blood pressure LUNGS: Clear. HEART: Regular rhythm. ABDOMEN: Soft. LABORATORY DATA: White count 9.1, hemoglobin 12.3, and platelets 182. Electrolytes are normal. IMPRESSION: Encephalitis, clinically improving. Job ID: [id number]
--- NOTE | 2018-03-05 14:49 | PDOC.PN ---
- Subjective Encounter Start Date: 03/05/18 Encounter Start Time: 11:15 Subjective: pt up in chair no complains - Objective Vital Signs & Weight: Vital Signs (12 hours) Temp Pulse Resp BP BP BP BP 03/05/18 11:33 97.5 F L 71 24 H 127/71 03/05/18 10:26 124/72 127/71 03/05/18 09:40 135/80 135/90 03/05/18 09:22 86 03/05/18 07:34 97.8 F 86 23 H 137/81 03/05/18 03:45 98.7 F 76 18 138/84 Pulse Ox 03/05/18 11:33 03/05/18 10:26 03/05/18 09:40 03/05/18 09:22 03/05/18 07:34 03/05/18 03:45 99 Weight Admit Weight 172 lb Weight 164 lb Most Recent Monitor Data Heart Rate from ECG 77 NIBP 120/65 NIBP BP-Mean 83 Respiration from ECG 22 SpO2 97 I&O: 03/04/18 03/05/18 03/06/18 06:59 06:59 06:59 Intake Total 1260 1180 Output Total 465 500 Balance 795 680 Result Diagrams: 03/05/18 05:58 03/05/18 05:58 Additional Labs: Accuchecks 03/05/18 03/05/18 03/04/18 11:12 05:33 20:39 POC Glucose 237 H 132 H 183 H Phys Exam - Physical Examination Neck: no nodes, no JVD, supple, full ROM Respiratory: no wheezing, no rales, no rhonchi, wheezing present, clear to auscultation bilateral Cardiovascular: RRR, no significant murmur, no rub, gallop, irregular Gastrointestinal: soft, non-tender, no distention, positive bowel sounds Musculoskeletal: no edema, pulses present, edema present Deviation from normal: oriented to self, place, month and year Dx/Plan (1) Acute encephalopathy Code(s): G93.40 - ENCEPHALOPATHY, UNSPECIFIED Status: Acute Comment: improving (2) Seizure Code(s): R56.9 - UNSPECIFIED CONVULSIONS Status: Acute Comment: continue Keppra (3) Thrombocytopenia Code(s): D69.6 - THROMBOCYTOPENIA, UNSPECIFIED Status: Acute Comment: improving (4) Uncontrolled hypertension Code(s): I10 - ESSENTIAL (PRIMARY) HYPERTENSION Status: Acute Comment: was off of Cardene drip now back on. - Plan will see if can discontinue sitter for possible discahrge -: continue keppra for seizure. -: will titrat pt's insulin * . Review of Systems - Review of Systems Respiratory: negative: Cough, Dry, Shortness of Breath, Hemoptysis, SOB with Excertion, Pleuritic Pain, Sputum, Wheezing Cardiovascular: negative: chest pain, palpitations, orthopnea, paroxysmal nocturnal dyspnea, edema, light headedness, other Gastrointestinal: negative: Nausea, Vomiting, Abdominal Pain, Diarrhea, Constipation, Melena, Hematochezia, Other - Medications/Allergies Allergies/Adverse Reactions: Allergies Allergy/AdvReac Type Severity Reaction Status Date / Time No Known Allergies Allergy Verified 06/20/17 23:36 Medications: Current Medications Acetaminophen (Tylenol) 650 mg [place] Q4H PRN PRN Reason: Headache/Fever/Mild Pain (1-3) Last Admin: 02/24/18 15:59 Dose: 650 mg Amlodipine Besylate (Norvasc) 10 mg PER TUBE DAILY [facility] Last Admin: 03/05/18 09:22 Dose: 10 mg Aspirin (Aspirin) 325 mg PO DAILY [facility] Last Admin: 03/05/18 09:22 Dose: 325 mg Bisacodyl (Dulcolax) 10 mg [place] DAILYPRN PRN PRN Reason: Constipation Last Admin: 02/25/18 16:57 Dose: 10 mg Clonidine (Mfdynnwb-Xpb-7) 0.2 mg TD Q7DAYS@1700 [facility] Last Admin: 03/04/18 18:34 Dose: 0.2 mg Dextrose/Water (Dextrose 50%) 25 gm SLOW IVP PRN PRN PRN Reason: Hypoglycemia Enoxaparin Sodium (Lovenox) 40 mg SC 0900 [facility] Last Admin: 03/05/18 09:23 Dose: 40 mg Famotidine (Pepcid) 20 mg PO BID [facility] Last Admin: 03/05/18 09:23 Dose: 20 mg Glucagon (Glucagon) 1 mg IM PRN PRN PRN Reason: Hypoglycemia Haloperidol Lactate (Haldol) 5 mg IM Q12HR [facility] Last Admin: 03/05/18 09:23 Dose: 5 mg Hydralazine HCl (Apresoline) 10 mg SLOW IVP Q4H PRN PRN Reason: SBP > 180 and HR < 70 Last Admin: 03/02/18 02:07 Dose: 10 mg Dextrose/Water (D5w) 1,000 mls @ 0 mls/hr IV .Q0M PRN PRN Reason: Hypoglycemia Levetiracetam 1,000 mg/ Device 100 mls @ 200 mls/hr IVPB Q12HR [facility] Last Admin: 03/05/18 09:23 Dose: 100 mls Insulin Glargine 25 units/ (Miscellaneous Medication) 0.25 mls @ 0 mls/hr SC QAM [facility] Last Admin: 03/05/18 09:23 Dose: 0.25 mls Insulin Human Lispro (Humalog) 0 units SC .MODERATE SLIDING SC PRN PRN Reason: Moderate Correctional Scale Last Admin: 03/05/18 11:55 Dose: 4 unit Insulin Human Lispro (Humalog) 0 units SC .BEDTIME SLIDING SC PRN PRN Reason: Bedtime Correctional Scale Last Admin: 03/03/18 13:09 Dose: 5 unit Labetalol HCl (Normodyne) 20 mg SLOW IVP Q4H PRN PRN Reason: SBP > 180 and HR >/= 100 Last Admin: 02/26/18 23:14 Dose: 20 mg Magnesium Hydroxide (Milk Of Magnesium) 30 ml PO BIDPRN PRN PRN Reason: Constipation Metoclopramide HCl (Reglan) 10 mg IVP Q6H PRN PRN Reason: Nausea/Vomiting Metoprolol Tartrate (Lopressor) 50 mg PO DAILY [facility] Last Admin: 03/05/18 09:24 Dose: 50 mg Ondansetron HCl (Zofran) 4 mg IVP Q6H PRN PRN Reason: Nausea/Vomiting Scopolamine (Transderm Scop) 1.5 mg TD Q3D [facility] Last Admin: 03/05/18 11:55 Dose: 1.5 mg
[2018-03-06 06:36] LABS: Anion Gap 15 mmol/L (10-20); BUN (Urea Nitrogen) 17 mg/dL (8.4-25.7); Calc. Creatinine Clearance 56 mL/min (70-130); Calcium 8.6 mg/dL (7.8-10.44); Carbon Dioxide 24 mmol/L (23-31); Chloride 106 mmol/L (98-107); Estimated GFR-MDRD 85; Glucose 109 mg/dL (83-110); Potassium 3.7 mmol/L (3.5-5.1); Sodium 141 mmol/L (136-145)
[2018-03-06 06:43] LABS: Band 1 % (5-11); Hemoglobin 12.6 g/dL (14.0-18.0); Lymphocytes 44 % (21-51); MDiff Complete? YES; Mean Corpuscular HGB CONC 31.5 g/dL (32.0-36.0); Mean Corpuscular Hemoglobin 26.7 pg (27.0-31.0); Mean Corpuscular Volume 84.7 fL (78.0-98.0); Mean Platelet Volume 10.3 fL (7.4-10.4); Monocytes 4 % (0-10); Neutrophil 51 % (42-75); Platelet Count 136 thou/uL (130-400); Red Blood Cell (RBC) Count 4.72 mill/uL (4.70-6.10); White Blood Cell (WBC) Count 9.5 thou/uL (4.8-10.8)
[2018-03-06] MEDS: Metoprolol Tartrate 50 MG TAB PO SCH (09:20)
[2018-03-06] MEDS: Amlodipine 10 MG TAB PER TUBE SCH (09:21)
[2018-03-06] MEDS: Aspirin 325 MG TAB PO SCH (09:21)
[2018-03-06] MEDS: Enoxaparin Sodium 40 MG/0.4 ML SYRINGE SC SCH (09:21)
[2018-03-06] MEDS: Famotidine 20 MG TAB PO SCH ×2 (09:21→20:17)
[2018-03-06] MEDS: Insulin Glargine 25 UNITS in Pre-Filled Syringe 1 EACH SC SCH (09:22)
[2018-03-06] MEDS: levETIRAcetam In NaCl (Iso-Os) 1,000 MG in Premix Bag 1 BAG IVPB SCH (09:22)
[2018-03-06] MEDS: Haloperidol Lactate 5 MG/ML VIAL IM SCH (09:22)
--- NOTE | 2018-03-06 12:25 | PDOC.PN ---
- Subjective Encounter Start Date: 03/06/18 Encounter Start Time: 10:15 Subjective: pt up in bed no complains - Objective Vital Signs & Weight: Vital Signs (12 hours) Temp Pulse Resp BP BP Pulse Ox 03/06/18 09:21 99 127/77 03/06/18 08:00 96 03/06/18 07:38 100.2 F H 99 16 127/77 96 03/06/18 05:59 98.4 F 87 16 127/80 94 L 03/06/18 00:37 98.3 F 77 16 147/82 H 100 Weight Admit Weight 172 lb Weight 162 lb 5 oz Most Recent Monitor Data Heart Rate from ECG 77 NIBP 120/65 NIBP BP-Mean 83 Respiration from ECG 22 SpO2 97 I&O: 03/05/18 03/06/18 03/07/18 06:59 06:59 06:59 Intake Total 1180 1000 Output Total 500 Balance 680 1000 Result Diagrams: 03/06/18 04:34 03/06/18 04:34 Additional Labs: Accuchecks 03/06/18 03/06/18 03/05/18 11:25 06:24 19:48 POC Glucose 189 H 112 H 123 H 03/05/18 17:29 POC Glucose 85 Phys Exam - Physical Examination HEENT: PERRLA, moist MMs, sclera anicteric, TM's clear, oral pharynx no lesions , 2+ tonsils Neck: no nodes, no JVD, supple, full ROM Respiratory: no wheezing, no rales, no rhonchi, wheezing present, clear to auscultation bilateral Cardiovascular: RRR, no significant murmur, no rub, gallop, irregular Gastrointestinal: soft, non-tender, no distention, positive bowel sounds Neurological: non-focal, normal sensation, moves all 4 limbs Dx/Plan (1) Acute encephalopathy Code(s): G93.40 - ENCEPHALOPATHY, UNSPECIFIED Status: Acute Comment: improving (2) Seizure Code(s): R56.9 - UNSPECIFIED CONVULSIONS Status: Acute Comment: continue Keppra (3) Thrombocytopenia Code(s): D69.6 - THROMBOCYTOPENIA, UNSPECIFIED Status: Acute Comment: improving (4) Uncontrolled hypertension Code(s): I10 - ESSENTIAL (PRIMARY) HYPERTENSION Status: Acute Comment: was off of Cardene drip now back on. - Plan pt up in bed oriented x3 -: will discontinue haldol and will put pt on seroquel -: will change iv keppra to oral -: will discontinue sitter * . Review of Systems - Review of Systems Respiratory: negative: Cough, Dry, Shortness of Breath, Hemoptysis, SOB with Excertion, Pleuritic Pain, Sputum, Wheezing Cardiovascular: negative: chest pain, palpitations, orthopnea, paroxysmal nocturnal dyspnea, edema, light headedness, other Gastrointestinal: negative: Nausea, Vomiting, Abdominal Pain, Diarrhea, Constipation, Melena, Hematochezia, Other Genitourinary: negative: Dysuria, Frequency, Incontinence, Hematuria, Retention , Other - Medications/Allergies Allergies/Adverse Reactions: Allergies Allergy/AdvReac Type Severity Reaction Status Date / Time No Known Allergies Allergy Verified 06/20/17 23:36 Medications: Current Medications Acetaminophen (Tylenol) 650 mg [place] Q4H PRN PRN Reason: Headache/Fever/Mild Pain (1-3) Last Admin: 02/24/18 15:59 Dose: 650 mg Amlodipine Besylate (Norvasc) 10 mg PO DAILY [facility] Aspirin (Aspirin) 325 mg PO DAILY [facility] Last Admin: 03/06/18 09:21 Dose: 325 mg Bisacodyl (Dulcolax) 10 mg [place] DAILYPRN PRN PRN Reason: Constipation Last Admin: 02/25/18 16:57 Dose: 10 mg Clonidine (Vhjsepfu-Iml-4) 0.2 mg TD Q7DAYS@1700 [facility] Last Admin: 03/04/18 18:34 Dose: 0.2 mg Dextrose/Water (Dextrose 50%) 25 gm SLOW IVP PRN PRN PRN Reason: Hypoglycemia Enoxaparin Sodium (Lovenox) 40 mg SC 0900 [facility] Last Admin: 03/06/18 09:21 Dose: 40 mg Famotidine (Pepcid) 20 mg PO BID [facility] Last Admin: 03/06/18 09:21 Dose: 20 mg Glucagon (Glucagon) 1 mg IM PRN PRN PRN Reason: Hypoglycemia Hydralazine HCl (Apresoline) 10 mg SLOW IVP Q4H PRN PRN Reason: SBP > 180 and HR < 70 Last Admin: 03/02/18 02:07 Dose: 10 mg Dextrose/Water (D5w) 1,000 mls @ 0 mls/hr IV .Q0M PRN PRN Reason: Hypoglycemia Insulin Glargine 25 units/ (Miscellaneous Medication) 0.25 mls @ 0 mls/hr SC QAM [facility] Last Admin: 03/06/18 09:22 Dose: 0.25 mls Insulin Human Lispro (Humalog) 0 units SC .MODERATE SLIDING SC PRN PRN Reason: Moderate Correctional Scale Last Admin: 03/05/18 11:55 Dose: 4 unit Insulin Human Lispro (Humalog) 0 units SC .BEDTIME SLIDING SC PRN PRN Reason: Bedtime Correctional Scale Last Admin: 03/03/18 13:09 Dose: 5 unit Labetalol HCl (Normodyne) 20 mg SLOW IVP Q4H PRN PRN Reason: SBP > 180 and HR >/= 100 Last Admin: 02/26/18 23:14 Dose: 20 mg Levetiracetam (Keppra) 1,000 mg PO BID [facility] Magnesium Hydroxide (Milk Of Magnesium) 30 ml PO BIDPRN PRN PRN Reason: Constipation Metoprolol Tartrate (Lopressor) 50 mg PO DAILY [facility] Last Admin: 03/06/18 09:20 Dose: 50 mg Quetiapine Fumarate (Seroquel) 25 mg PO HS [facility]
[2018-03-06] MEDS ORDERED: Acetaminophen 325 MG TAB PO PRN (13:42)
[2018-03-06] MEDS: HumaLOG 300 UNITS/3 ML VIAL SC PRN (18:04)
--- NOTE | 2018-03-06 19:54 | PRG ---
DATE OF SERVICE: 03/06/2018 SERVICE: Pulmonary Medicine. INTERVAL HISTORY: The patient is doing fine from respiratory standpoint. He is breathing comfortably. He denies any current chest pain, fevers, or chills. Otherwise, there has been no interval change to his condition. PHYSICAL EXAMINATION: VITAL SIGNS: Currently afebrile with a T-max of 100.2, pulse 99, blood pressure 127/77, respirations 16, and saturation 96% on room air. GENERAL: The patient is awake. He is alert. HEENT: Normocephalic and atraumatic. Sclerae white. Conjunctivae pink. Oral mucosa is moist without lesions. LUNGS: Excellent air entry. There is absolutely no prolonged expiratory phase, wheezing, rhonchi, or crackles. HEART: Normal rate and regular. ABDOMEN: Soft, nontender, and nondistended. Bowel sounds are positive. MUSCULOSKELETAL: No cyanosis or clubbing. There is no pitting in the bilateral lower extremities. LABORATORY DATA: WBC 9.5, hemoglobin 12.6 and stable, and platelets 136,000. Basic metabolic profile is completely unremarkable with a creatinine of 1.01, which is stable. Respiratory virus panel is unremarkable. Varicella zoster virus IgM is abnormal. ASSESSMENT: 1. Hypertension. 2. Seizure. 3. Encephalitis. DISCUSSION AND PLAN: Supportive measures will be continued as the patient continues to make some clinical improvements. Pulmonary/Critical Care will continue to follow along, intermittently for the duration of the hospital stay. Job ID: [id number]
[2018-03-06] MEDS: levETIRAcetam 500 MG TAB PO SCH (20:16)
[2018-03-07] MEDS: Amlodipine 10 MG TAB PO SCH (08:29)
[2018-03-07] MEDS: Famotidine 20 MG TAB PO SCH ×2 (08:29→19:53)
[2018-03-07] MEDS: Aspirin 325 MG TAB PO SCH (08:29)
[2018-03-07] MEDS: Enoxaparin Sodium 40 MG/0.4 ML SYRINGE SC SCH (08:29)
[2018-03-07] MEDS: levETIRAcetam 500 MG TAB PO SCH ×2 (08:30→19:53)
[2018-03-07] MEDS: Metoprolol Tartrate 50 MG TAB PO SCH (08:30)
[2018-03-07] MEDS: Insulin Glargine 25 UNITS in Pre-Filled Syringe 1 EACH SC SCH (08:30)
[2018-03-07] MEDS: HumaLOG 300 UNITS/3 ML VIAL SC PRN (13:53)
--- NOTE | 2018-03-07 14:14 | PDOC.PN ---
- Subjective Encounter Start Date: 03/07/18 Encounter Start Time: 09:00 Subjective: pt up in bed no complains - Objective Vital Signs & Weight: Vital Signs (12 hours) Temp Pulse Resp BP BP Pulse Ox 03/07/18 08:40 97.7 F 107 H 18 167/85 H 94 L 03/07/18 08:29 86 167/85 H 03/07/18 08:00 94 L Weight Admit Weight 172 lb Weight 162 lb 5 oz Most Recent Monitor Data Heart Rate from ECG 77 NIBP 120/65 NIBP BP-Mean 83 Respiration from ECG 22 SpO2 97 I&O: 03/06/18 03/07/18 03/08/18 06:59 06:59 06:59 Intake Total 999 1909 Balance 1000 1909 Result Diagrams: 03/06/18 04:34 03/06/18 04:34 Additional Labs: Accuchecks 03/07/18 03/07/18 03/06/18 11:20 05:40 20:23 POC Glucose 283 H 122 H 198 H 03/06/18 16:16 POC Glucose 248 H Phys Exam - Physical Examination Respiratory: no wheezing, no rales, no rhonchi, wheezing present, clear to auscultation bilateral Cardiovascular: RRR, no significant murmur, no rub, gallop, irregular Gastrointestinal: soft, non-tender, no distention, positive bowel sounds Musculoskeletal: no edema, pulses present, edema present Neurological: non-focal Dx/Plan (1) Acute encephalopathy Code(s): G93.40 - ENCEPHALOPATHY, UNSPECIFIED Status: Acute Comment: improving (2) Seizure Code(s): R56.9 - UNSPECIFIED CONVULSIONS Status: Acute Comment: continue Keppra (3) Thrombocytopenia Code(s): D69.6 - THROMBOCYTOPENIA, UNSPECIFIED Status: Acute Comment: improving (4) Uncontrolled hypertension Code(s): I10 - ESSENTIAL (PRIMARY) HYPERTENSION Status: Acute Comment: was off of Cardene drip now back on. - Plan pt to be discharged today but swing wanted to wait until thursday -: will continue his medication. -: pt oriented x3 -: will check labs today * . Review of Systems - Review of Systems Respiratory: negative: Cough, Dry, Shortness of Breath, Hemoptysis, SOB with Excertion, Pleuritic Pain, Sputum, Wheezing Cardiovascular: negative: chest pain, palpitations, orthopnea, paroxysmal nocturnal dyspnea, edema, light headedness, other Gastrointestinal: negative: Nausea, Vomiting, Abdominal Pain, Diarrhea, Constipation, Melena, Hematochezia, Other - Medications/Allergies Allergies/Adverse Reactions: Allergies Allergy/AdvReac Type Severity Reaction Status Date / Time No Known Allergies Allergy Verified 06/20/17 23:36 Medications: Current Medications Acetaminophen (Tylenol) 650 mg [place] Q4H PRN PRN Reason: Headache/Fever/Mild Pain (1-3) Last Admin: 02/24/18 15:59 Dose: 650 mg Acetaminophen (Tylenol) 650 mg PO Q4H PRN PRN Reason: Headache/Fever or Pain Last Admin: 03/06/18 16:34 Dose: 650 mg Amlodipine Besylate (Norvasc) 10 mg PO DAILY [facility] Last Admin: 03/07/18 08:29 Dose: 10 mg Aspirin (Aspirin) 325 mg PO DAILY [facility] Last Admin: 03/07/18 08:29 Dose: 325 mg Bisacodyl (Dulcolax) 10 mg [place] DAILYPRN PRN PRN Reason: Constipation Last Admin: 02/25/18 16:57 Dose: 10 mg Clonidine (Qxcrmgcf-Fby-5) 0.2 mg TD Q7DAYS@1700 [facility] Last Admin: 03/04/18 18:34 Dose: 0.2 mg Dextrose/Water (Dextrose 50%) 25 gm SLOW IVP PRN PRN PRN Reason: Hypoglycemia Enoxaparin Sodium (Lovenox) 40 mg SC 0900 [facility] Last Admin: 03/07/18 08:29 Dose: 40 mg Famotidine (Pepcid) 20 mg PO BID [facility] Last Admin: 03/07/18 08:29 Dose: 20 mg Glucagon (Glucagon) 1 mg IM PRN PRN PRN Reason: Hypoglycemia Hydralazine HCl (Apresoline) 10 mg SLOW IVP Q4H PRN PRN Reason: SBP > 180 and HR < 70 Last Admin: 03/02/18 02:07 Dose: 10 mg Dextrose/Water (D5w) 1,000 mls @ 0 mls/hr IV .Q0M PRN PRN Reason: Hypoglycemia Insulin Glargine 25 units/ (Miscellaneous Medication) 0.25 mls @ 0 mls/hr SC QAM [facility] Last Admin: 03/07/18 08:30 Dose: 0.25 mls Insulin Human Lispro (Humalog) 0 units SC .MODERATE SLIDING SC PRN PRN Reason: Moderate Correctional Scale Last Admin: 03/06/18 18:04 Dose: 4 unit Insulin Human Lispro (Humalog) 0 units SC .BEDTIME SLIDING SC PRN PRN Reason: Bedtime Correctional Scale Last Admin: 03/03/18 13:09 Dose: 5 unit Labetalol HCl (Normodyne) 20 mg SLOW IVP Q4H PRN PRN Reason: SBP > 180 and HR >/= 100 Last Admin: 02/26/18 23:14 Dose: 20 mg Levetiracetam (Keppra) 1,000 mg PO BID [facility] Last Admin: 03/07/18 08:30 Dose: 1,000 mg Magnesium Hydroxide (Milk Of Magnesium) 30 ml PO BIDPRN PRN PRN Reason: Constipation Metoprolol Tartrate (Lopressor) 50 mg PO DAILY [facility] Last Admin: 03/07/18 08:30 Dose: 50 mg Quetiapine Fumarate (Seroquel) 25 mg PO 1900 [facility] Last Admin: 03/06/18 18:04 Dose: 25 mg
[2018-03-07 14:56] LABS: #Basophils 0.1 thou/uL (0.0-0.2); #Eosinphils 0.1 thou/uL (0.0-0.7); #Lymphocytes 3.8 thou/uL (1.20-3.40); #Monocytes 0.5 thou/uL (0.11-0.59); #Neutrophils 3.9 thou/uL (1.40-6.50); %Basophils 1.5 % (0.0-1.0); %Eosinophils 0.8 % (0.0-10.0); %Lymphocytes 45.3 % (21.0-51.0); %Monocytes 5.9 % (0.0-10.0); %Neutrophils 46.5 % (42.0-75.0); Hemoglobin 12.5 g/dL (14.0-18.0); Mean Corpuscular HGB CONC 31.7 g/dL (32.0-36.0); Mean Corpuscular Hemoglobin 26.9 pg (27.0-31.0); Mean Corpuscular Volume 84.9 fL (78.0-98.0); Mean Platelet Volume 10.2 fL (7.4-10.4); Platelet Count 83 thou/uL (130-400); Red Blood Cell (RBC) Count 4.64 mill/uL (4.70-6.10); White Blood Cell (WBC) Count 8.3 thou/uL (4.8-10.8)
[2018-03-07 15:39] LABS: BUN (Urea Nitrogen) 16 mg/dL (8.4-25.7); Calc. Creatinine Clearance 57 mL/min (70-130); Calcium 8.7 mg/dL (7.8-10.44); Carbon Dioxide 25 mmol/L (23-31); Estimated GFR-MDRD 88; Glucose 145 mg/dL (83-110)
[2018-03-07 15:47] LABS: Anion Gap 14 mmol/L (10-20); Chloride 106 mmol/L (98-107); Potassium 3.9 mmol/L (3.5-5.1); Sodium 139 mmol/L (136-145)
[2018-03-08] MEDS: levETIRAcetam 500 MG TAB PO SCH (08:55)
[2018-03-08] MEDS: Aspirin 325 MG TAB PO SCH (08:55)
[2018-03-08] MEDS: Amlodipine 10 MG TAB PO SCH (08:55)
[2018-03-08] MEDS: Insulin Glargine 25 UNITS in Pre-Filled Syringe 1 EACH SC SCH (08:55)
[2018-03-08] MEDS: Metoprolol Tartrate 50 MG TAB PO SCH (08:56)
[2018-03-08] MEDS: Enoxaparin Sodium 40 MG/0.4 ML SYRINGE SC SCH (09:02)
[2018-03-08] MEDS: Famotidine 20 MG TAB PO SCH (09:13)
[2018-03-08 16:53] VITALS: BP 124/79; TEMP 98.9
[2018-03-08 17:03] VITALS: BMI 27.0
== END 2018-03-08 16:56 | disposition swing bed (61) | DRG 71 ==
LOC: ERS 18:09 → CCU 18:25 → IMCU/EMU 03-04 15:34 → T4-A 03-05 17:59
PROVIDERS: ADMIT Internal Medicine; ATTEND Internal Medicine
PROC: 009U3ZX Drainage of Spinal Canal, Percutaneous Approach, Diagnostic (ICD-10-PCS; principal; 2018-02-20)
PROC: B01BZZZ Fluoroscopy of Spinal Cord (ICD-10-PCS; 2018-02-20)
PROC: 3E03317 Introduction of Other Thrombolytic into Peripheral Vein, Percutaneous Approach (ICD-10-PCS; 2018-02-20)
PROC: 5A1945Z Respiratory Ventilation, 24-96 Consecutive Hours (ICD-10-PCS; 2018-02-21)
PROC: 0BH17EZ Insertion of Endotracheal Airway into Trachea, Via Natural or Artificial Opening (ICD-10-PCS; 2018-02-21)
DX: G93.41 Metabolic encephalopathy (principal); R47.01 Aphasia; I69.954 Hemiplegia and hemiparesis following unspecified cerebrovascular disease affecting left non-dominant side; R29.810 Facial weakness; I25.10 Atherosclerotic heart disease of native coronary artery without angina pectoris; Z95.1 Presence of aortocoronary bypass graft; E11.9 Type 2 diabetes mellitus without complications; I10 Essential (primary) hypertension; E66.9 Obesity, unspecified; Z68.27 Body mass index [BMI] 27.0-27.9, adult; R29.721 NIHSS score 21; F41.9 Anxiety disorder, unspecified; Z72.0 Tobacco use; R56.9 Unspecified convulsions; E87.8 Other disorders of electrolyte and fluid balance, not elsewhere classified; D47.3 Essential (hemorrhagic) thrombocythemia
CPT/HCPCS: 36415; 36416; 51702; 62270; 70551; 70553; 71045; 74018; 80048; 81003; 81015; 82550; 82805; 82945; 83605; 84157; 85007; 85025; 85027; 85060; 86592; 86787; 86788; 86789; 87040; 87086; 87205; 87498; 87529; 87633; 87798; 87899; 89051; 90471; 90670; 93005; 93306; 94002; 94003; 95816; 95819; 96365; 96366; A9579; G0009; G8978-GP-CJ; G8978-GP-CN; G8979-GP-CI; G8979-GP-CM; G8987-GO-CM; G8987-GO-CN; G8988-GO-CK; G8996-GN-CK; G8996-GN-CN; G8997-GN-CI; G8997-GN-CL; G9159-GN-CM; G9160-GN-CL; J0133; J0360; J1630; J1644; J1650; J1953; J2001; J2060; J2250; J2270; J2704; J2765; J3370; J3480; J7050; S0028

== ENCOUNTER 2018-10-05 10:58 | Observation (INO) | payer MEDICARE ==
[~2018-10-05 10:58] MED LIST: ISOVUE-370 76%-LOCM 1 ML ONE
[2018-10-05 11:53] LABS: Hemoglobin 12.6 g/dL (14.0-18.0); Mean Corpuscular HGB CONC 32.3 g/dL (32.0-36.0); Mean Corpuscular Hemoglobin 27.8 pg (27.0-31.0); Mean Platelet Volume 9.9 fL (7.4-10.4); Platelet Count 127 thou/uL (130-400); RBC Distribution Width 12.9 % (11.5-14.5); Red Blood Cell (RBC) Count 4.53 mill/uL (4.70-6.10); White Blood Cell (WBC) Count 7.9 thou/uL (4.8-10.8)
[2018-10-05 11:54] LABS: Bilirubin Negative (Negative); Blood, Urine Trace (Negative); Glucose, Urine (Dipstick) Negative (Negative); Leukocyte Small (Negative); Nitrite Negative (Negative); Protein, Urine (Dipstick) 100 mg/dL (Neg-Trace); Urobilinogen 0.2 mg/dL (Less than 2)
[2018-10-05 11:54] LABS: ALT (SGPT) 11 U/L (8-55); AST (SGOT) 11 U/L (5-34); Albumin 3.6 g/dL (3.4-4.8); Alkaline Phosphatase 108 U/L (40-150); Anion Gap 14 mmol/L (10-20); BUN (Urea Nitrogen) 17 mg/dL (8.4-25.7); Bilirubin, Total 0.3 mg/dL (0.2-1.2); Calc. Creatinine Clearance 0 mL/min (70-130); Calcium 9.1 mg/dL (7.8-10.44); Carbon Dioxide 26 mmol/L (23-31); Chloride 104 mmol/L (98-107); Estimated GFR-MDRD 85; Globulin 4.1 g/dL (2.4-3.5); Glucose 197 mg/dL (83-110); Potassium 3.9 mmol/L (3.5-5.1); Protein, Total 7.7 g/dL (5.8-8.1); Sodium 140 mmol/L (136-145)
[2018-10-05 11:56] LABS: Band 2 % (5-11); Lymphocytes 57 % (21-51); MDiff Complete? YES; Monocytes 5 % (0-10); Neutrophil 35 % (42-75); RBC Morphology Normal; Reactive Lymphocytes 1 % (0-10)
[2018-10-05 12:00] LABS: Clarity Clear (Clear)
[2018-10-05 12:02] LABS: Bacteria/HPF None Seen HPF (None Seen); Squamous Epithelial 0-3 HPF (0-3); WBC/HPF 21-50 HPF (0-3)
--- NOTE | 2018-10-05 12:13 | RAD ---
RIGHT SHOULDER THREE VIEWS: HISTORY: Injury from fall with pain, right shoulder. FINDINGS: Degenerative changes at the glenohumeral joint with spurring from the humeral head. Degenerative nehemias nges at the AC joint with spurring and hypertrophic change. No fracture, dislocation, or acute abnor mality identified. POS: [facility]
--- NOTE | 2018-10-05 12:14 | RAD ---
LEFT SHOULDER THREE VIEWS: HISTORY: Injury with pain to the left shoulder. 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 Mild DJD and spurring a t the AC joint. No fracture, dislocation, or acute process identified. POS: [facility]
[2018-10-05] MEDS ORDERED: Pantoprazole 80 MG in Sodium Chloride 0.9% 100 ML IVP SCH (13:00)
--- NOTE | 2018-10-05 13:40 | CT ---
CT ABDOMEN WITH CONTRAST CT PELVIS WITH CONTRAST: DATE: 10/05/2018 HISTORY: 83-year-old male with bright red blood per rectum. TECHNIQUE: IV injection of iodinated contrast media: Administered Oral contrast media:Not administered. FINDINGS: Liver: No focal solid mass. Spleen: No splenomegaly.. Pancreas: No mass or surrounding fat stranding.. Adrenals: No mass.. Kidneys: No hydronephrosis or enhancement abnormalities.. 1.5 cm cystic lesion at anterior parenchyma of left renal mid-lower pole. Ureters: No dilation. Bladder: No pathology identified. Abdominal aorta: No aneurysm. Small bowel: No dilation. Colon: Multiple diverticula at descending and sigmoid colon. No adjacent fat stranding. Appendix: No dilation or adjacent fat stranding.. Free air: None. Free fluid: None. IMPRESSION: 1. No major pathology identified.. 2. Colonic diverticulosis without evidence of diverticulitis.
[2018-10-05] MEDS ORDERED: Pantoprazole 40 MG VIAL ONE (14:19)
[2018-10-05 17:41] VITALS: BMI 29.5
[2018-10-05] MEDS ORDERED: Dextrose 5% in Water 1,000 ML IV PRN (17:44)
[2018-10-05] MEDS ORDERED: Acetaminophen 325 MG TAB PO PRN (17:44)
[2018-10-05] MEDS ORDERED: Dextrose 50% Abboject 50 ML SYRINGE SLOW IVP PRN (17:44)
[2018-10-05] MEDS ORDERED: Ondansetron PF 4 MG/2 ML Vial IVP PRN (17:44)
[2018-10-05] MEDS ORDERED: Ondansetron ODT 4 MG TAB PO PRN (17:44)
[2018-10-05] MEDS ORDERED: hydrALAZINE 20 MG/ML VIAL SLOW IVP PRN (17:49)
[2018-10-05] MEDS ORDERED: Lisinopril 20 MG TAB PO SCH (18:00)
[2018-10-05] MEDS ORDERED: Diazepam 5 MG TAB PO PRN (18:02)
--- NOTE | 2018-10-05 18:47 | HP ---
PRIMARY CARE PHYSICIAN: No PCP. CHIEF COMPLAINT: Bloody stools. HISTORY OF PRESENT ILLNESS: An 83-year-old male with known history of coronary artery disease status post CABG, type 2 diabetes and hypertension, who presents to the ER with acute onset of three episodes of bloody stool earlier today. There was no associated abdominal pain, nausea, vomiting, headache, dizziness, chest pain, palpitations, or change in bowel habit. The patient also denied use of stool softeners or laxatives. He, however, admitted to soft stool after taking his usual metformin. There was no fever, shortness of breath, cough, leg swelling, or dysuria. Evaluation in the emergency room was unremarkable as patient had stable hemodynamics as well as H and H. He was started on Protonix infusion and was admitted for observation. PAST MEDICAL HISTORY: 1. Multiple episodes of TIAs. 2. Tonic clonic seizures. 3. Hypertension. 4. Type 2 diabetes. 5. Coronary artery disease, status post CABG. 6. TIAs PAST SURGICAL HISTORY: Coronary artery bypass graft in 1994. FAMILY HISTORY: Unremarkable and noncontributory. SOCIAL HISTORY: The patient lives with spouse and some grand kids. Denied alcohol, drug use, or tobacco use. ALLERGIES: NO KNOWN DRUG ALLERGIES REPORTED. HOME MEDICATIONS: 1. Metformin 1000 mg p.o. b.i.d. 2. Tramadol 50 mg two times a day. 3. Diazepam 5 mg every 8 hours p.r.n. 4. Lisinopril 40 mg p.o. daily. 5. Simvastatin 20 mg p.o. daily. 6. Terazosin 10 mg p.o. daily. REVIEW OF SYSTEMS: 12-point review of system performed was unremarkable, other than pertinent positives and negatives included in the history of present illness. PHYSICAL EXAMINATION: VITAL SIGNS: Initial vitals on presentation showed BP of 213/96, pulse of 87, respiratory rate of 17, temperature of 97.8, SpO2 of 96 on room air. Most current vitals showed BP of 187/113, pulse of 86, respiratory rate of 16, temperature of 98.7, and 98 on room air. GENERAL: Healthy-looking elderly male , in no obvious distress. Afebrile. Anicteric. Acyanotic. HEENT: Normocephalic, atraumatic. Pupils are reacting to light. Oral mucosa is moist. NECK: Supple, nontender with full range of motion. No masses or lymphadenopathy appreciated. CARDIOVASCULAR: Regular rhythm and rate with normal heart sounds 1 and 2. RESPIRATORY: Good air entry bilaterally with no obvious crackle or rhonchi or use of accessory muscles. GI: Full, soft, nontender, nondistended with normal bowel sounds. EXTREMITIES: Grossly normal looking, atraumatic with no edema, erythema, or cyanosis. Distal pulses are palpable. NEUROLOGIC: Conscious, alert, oriented x3 with appropriate mental status. Cranial nerves 2 through 12 are intact. The patient moves all extremities. DIAGNOSTIC DATA: CBC showed WBC count of 7.9, hemoglobin of 12.6, MCV of 86.0, platelet of 127. CMP showed sodium 140, potassium 3.9, chloride 104, CO2 of 26, BUN 17, creatinine 1.01, glucose 197, calcium 9.1, total bilirubin 0.3, AST 11, ALT 11, alkaline phosphatase 108, total protein 7.7, albumin 3.6, globulin 4.1. Urinalysis showed clear yellow urine with pH of 5.0, specific gravity of 1.020, urine protein positive, trace ketone, trace blood, but negative nitrite, glucose , and bilirubin with small leukocyte esterase. Microscopy showed 4 to 6 rbc and 21-[address] scan of the abdomen showed colonic diverticulosis without evidence of diverticulitis. ASSESSMENT: 1. Hematochezia. The patient has not had any further bloody stools since presentation to the hospital. This is most likely diverticular bleed or hemorrhoid. The patient admitted to prior history of hemorrhoid. He has had colonoscopy several years back, but was unable to tell me the results. CT scan showed diverticular disease with no evidence of the diverticulitis. 2. Hemoglobin so for is within normal limits. 3. Uncontrolled hypertension. The patient did not take his usual antihypertensives today. 4. Type 2 diabetes with hyperglycemia. 5. Coronary artery disease, status post coronary artery bypass graft. The patient is asymptomatic at this time. 6. Presumed benign prostatic hypertrophy, on terazosin. 7. Diverticulosis PLAN: 1. We will monitor hemoglobin and hematocrit. 2. We will restart lisinopril and will add hydralazine p.r.n. to get adequate BP control. 3. We will hold metformin and start the patient on sliding scale insulin to get adequate glycemic control. 4. We will start the patient on diabetic diet. We will also consult GI for further recommendation in his evaluation. 5. We will also restart terazosin for BPH. 6. We will get urine culture given pyuria. 7. DVT prophylaxis with SCD will be provided. We will hold aspirin and there will be no pharmacologic DVT prophylaxis. 8. Ethics: The patient is full code. Spouse is the surrogate decision maker. Job ID: [id number] MTDD
[2018-10-05] MEDS: traMADol HCl 50 MG TAB PO SCH (20:49)
[2018-10-05] MEDS: Simvastatin 20 MG TAB PO SCH (20:49)
[2018-10-05] MEDS: Terazosin HCl 5 MG CAP PO SCH (20:50)
[2018-10-06 05:46] LABS: #Basophils 0.1 thou/uL (0.0-0.2); #Monocytes 0.4 thou/uL (0.11-0.59); #Neutrophils 3.7 thou/uL (1.40-6.50); %Eosinophils 0.3 % (0.0-10.0); %Lymphocytes 48.5 % (21.0-51.0); %Monocytes 5.2 % (0.0-10.0); Hemoglobin 11.4 g/dL (14.0-18.0); Mean Corpuscular HGB CONC 30.8 g/dL (32.0-36.0); Mean Corpuscular Hemoglobin 26.8 pg (27.0-31.0); Mean Platelet Volume 9.8 fL (7.4-10.4); Platelet Count 138 thou/uL (130-400); RBC Distribution Width 13.2 % (11.5-14.5); Red Blood Cell (RBC) Count 4.25 mill/uL (4.70-6.10); White Blood Cell (WBC) Count 8.3 thou/uL (4.8-10.8)
[2018-10-06 06:06] LABS: Anion Gap 13 mmol/L (10-20); BUN (Urea Nitrogen) 22 mg/dL (8.4-25.7); Calc. Creatinine Clearance 53 mL/min (70-130); Calcium 8.7 mg/dL (7.8-10.44); Carbon Dioxide 23 mmol/L (23-31); Chloride 104 mmol/L (98-107); Estimated GFR-MDRD 73; Glucose 209 mg/dL (83-110); Potassium 4.1 mmol/L (3.5-5.1); Sodium 136 mmol/L (136-145)
[2018-10-06] MEDS: HumaLOG 300 UNITS/3 ML VIAL SC PRN ×2 (06:23→16:55)
[2018-10-06] MEDS: Lisinopril 20 MG TAB PO SCH (08:29)
[2018-10-06] MEDS: traMADol HCl 50 MG TAB PO SCH ×2 (08:30→21:36)
--- NOTE | 2018-10-06 15:42 | PDOC.PN ---
- Subjective Encounter Start Date: 10/06/18 Encounter Start Time: 15:40 Subjective: Admitted due to bloody stools. -: Non since presentation to the hospital. -: No dizziness or chest pain. - Objective Resuscitation Status - Order Detail: 10/05/18 17:44 Resuscitation Status Routine Resuscitation Status: FULL: Full Resuscitation Vital Signs & Weight: Vital Signs (12 hours) Temp Pulse Resp BP BP Pulse Ox 10/06/18 11:41 98.1 F 98 20 162/82 H 97 10/06/18 08:29 145/76 H 10/06/18 07:38 98 F 93 18 145/76 H 95 Weight Weight 177 lb 8 oz I&O: 10/05/18 10/06/18 10/07/18 06:59 06:59 06:59 Intake Total 341 Output Total 600 Balance -259 Result Diagrams: 10/06/18 05:34 10/06/18 05:34 Additional Labs: Accuchecks 10/06/18 10/05/18 10/05/18 11:11 21:26 18:14 POC Glucose 203 H 211 H 152 H Phys Exam - Physical Examination Constitutional: NAD HEENT: moist MMs Neck: no JVD, supple Respiratory: no wheezing, no rales, no rhonchi, clear to auscultation bilateral Cardiovascular: RRR Gastrointestinal: soft, non-tender, no distention, positive bowel sounds Musculoskeletal: no edema, pulses present Neurological: non-focal, moves all 4 limbs Psychiatric: normal affect, A&O x 3 Dx/Plan (1) Rectal bleeding Code(s): K62.5 - HEMORRHAGE OF ANUS AND RECTUM Status: Acute (2) Acute blood loss anemia Code(s): D62 - ACUTE POSTHEMORRHAGIC ANEMIA Status: Acute (3) HTN (hypertension) Code(s): I10 - ESSENTIAL (PRIMARY) HYPERTENSION Status: Chronic Comment: well controlled, Continue with home Meds. - Plan Continue H/H monitoring. -: Continue antihypertensives. -: for Colonoscopy tomorrow as per GI * .
[2018-10-06] MEDS: GoLYTELY 4,000 ml Bottle PO SCH (17:37)
[2018-10-06] MEDS: Terazosin HCl 5 MG CAP PO SCH (21:41)
[2018-10-06] MEDS: Simvastatin 20 MG TAB PO SCH (21:42)
--- NOTE | 2018-10-07 01:47 | CON ---
DATE OF CONSULTATION: 10/06/2018 REASON FOR CONSULTATION: Hematochezia. HISTORY OF PRESENT ILLNESS: Mr. Baltazar Muñiz is a very pleasant 83-year-old male seen in the ER with history of hematochezia. The patient had passed the bloody bowel movements yesterday. The stools were bloody with some mucus stools. The patient had no abdominal pain. No nausea or vomiting. The bleeding was sudden in onset. The patient had no further episodes of bleeding. No similar episodes in the past. He had a colonoscopy probably about more than 10 to 15 years ago. The patient has had no fever or chills. The patient was hospitalized because of the bloody stool. Since admission, the patient has had no bleeding. Blood count is slightly low but not very low. The patient at present time offers no complaints. He denies any abdominal pain. No history of any perianal discomfort, burning, or itching. He says he has BM every day. He has no stool today but usually has stool every day and does not strain or push hard. The patient has had no family history of colon cancer. The patient has no relevant history. ALLERGIES: NONE. SOCIAL HISTORY: The patient is . He does not smoke or drink alcohol. MEDICAL ILLNESSES: 1. Hypertension. 2. Type 2 diabetes mellitus. 3. Coronary artery disease, status post coronary artery bypass graft in 1994. 4. Tonic-clonic seizures. 5. Multiple episodes of TIAs in 2019 and he had also some transient hemiparesis the last admission in 2019. He has fully recovered and there is no discernible weakness. PAST SURGICAL HISTORY: Coronary artery bypass graft in 1994. Denies any other major surgeries. FAMILY HISTORY: There is no family history of any cancer, stroke, or heart disease. MEDICATION LIST: Reviewed. 1. Metformin 1000 mg twice a day. 2. Tramadol 50 mg twice a day. 3. Diazepam 5 mg every 8 hours p.r.n. 4. Lisinopril 40 mg once a day. 5. Simvastatin 20 once a day. 6. Terazosin 10 mg p.o. once a day. REVIEW OF SYSTEMS: A 10-point system reviewed. HEAD: No syncope, no headache, no dizziness. EENT: No impaired vision. No diplopia. No hearing loss. No sore throat. No dysphagia. No nose bleeding. LUNGS: No chronic coughing, hemoptysis, dyspnea. CARDIOVASCULAR: No chest pain, no palpitation. No dyspnea, orthopnea, or PND. GI: As in history of present illness. : No dysuria, hematuria. MUSCULOSKELETAL: Not known. NEUROENDOCRINE: Not known. PHYSICAL EXAMINATION: GENERAL: He is awake, alert, and communicative. He is in no acute distress. Afebrile. VITAL SIGNS: Pulse is 87, blood pressure is 150/87. EYES: Conjunctivae clear. NECK: Supple. No adenitis or thyromegaly noted. CARDIOVASCULAR: First and second heart sounds heard. LUNGS: Clear to auscultation. ABDOMEN: Soft. No organomegaly. No tenderness. No masses. EXTREMITIES: Reveal no edema. NEUROLOGIC: No weakness or any sensory deficit. LABORATORY DATA: CBC; WBC 7900, hemoglobin 12.6, MCV 86, platelet count 127,000, polymorphs normal on differential. Sodium 140, potassium 3.9, chloride 104, bicarb 26, BUN is 17, creatinine 1.10, glucose 197, calcium 9.1, bilirubin 0.3, AST 11, ALT 11, alkaline phosphatase 108, albumin is 3.6, globulin 4.1. DIAGNOSTIC STUDIES: The CAT scan of abdomen done shows basically colonic diverticular disease. CLINICAL IMPRESSION: 1. An 83-year-old male with hematochezia. The patient has history of colonoscopy I believe more than 10 years ago, and definitely we do not know how long it was. The patient had no pain. No perianal discomfort or abdominal pain. Does have diverticular disease on the CAT scan. 2. Hypertension. 3. Diabetes. 4. Coronary artery disease, status post coronary artery bypass graft in 1994. 5. Multiple . Overall impression, the patient had painless rectal bleeding, possibly this bleeding is from diverticulosis or possibly vascular ectasia or possibly PLAN: I did talk to Mr. Muñiz and his also. Their concern about his rectal bleeding and they wished to proceed with a colonoscopy. He had a colonoscopy before many years ago. He was explained about the prep and the potential risks and benefits. He is agreeable. I will plan for colonoscopy tomorrow. Job ID: [id number]
[2018-10-07] MEDS: GoLYTELY 4,000 ml Bottle PO SCH (06:06)
[2018-10-07 06:13] LABS: Hemoglobin 11.4 g/dL (14.0-18.0)
[2018-10-07] MEDS: Lisinopril 20 MG TAB PO SCH (07:30)
[2018-10-07] MEDS: traMADol HCl 50 MG TAB PO SCH (08:14)
[2018-10-07] MEDS ORDERED: Ondansetron HCl/PF 4 MG/2 ML Vial IVP PRN (11:15)
[2018-10-07] MEDS ORDERED: Promethazine HCl 25 MG/ML VIAL IM PRN (11:15)
[2018-10-07] MEDS ORDERED: Promethazine HCl 25 MG/ML VIAL SLOW IVP PRN (11:15)
[2018-10-07 11:48] VITALS: BP 155/86; TEMP 98
--- NOTE | 2018-10-07 11:51 | OP ---
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 PROCEDURE PERFORMED: Colonoscopy, diagnostic. INDICATION: Rectal bleeding. MEDICATIONS: See Anesthesia record. FINDINGS: After discussion of the risks, benefits, and alternatives of the procedure, informed consent was obtained and witnessed. Pre-endoscopic cardiopulmonary examination was satisfactory. Time-out was performed before sedation was achieved. Sedation was achieved with Anesthesia assistance in the endoscopy unit. A Pentax adult colonoscope was prepared. Digital rectal exam was performed, which was unremarkable. The colonoscope was inserted into the anus and passed forward to the cecum in the usual fashion. The cecal base was identified by the appendiceal orifice as well as the ileocecal valve. The terminal ileum was not intubated. The colonoscope was slowly withdrawn in a gradual and circumferential manner with careful examination of the entire colonic mucosa. The quality of the prep was adequate. There was no evidence of any old blood or active bleeding or any bleeding lesions throughout the entire colon. There were no polyps or mass lesions visualized. No mucosal abnormalities. The patient does have multiple diverticula in the descending colon and sigmoid colon, but no evidence of diverticulitis. Retroflexion in the rectum demonstrates small internal hemorrhoids, which were nonbleeding. The colonoscope was completely withdrawn and the patient allowed to recover. The patient tolerated the procedure well. There were no immediate postprocedure complications. IMPRESSION: 1. No evidence of any old blood or active bleeding or bleeding lesions. 2. Left-sided diverticulosis. 3. Small internal hemorrhoids. 4. Otherwise normal colonoscopy to the cecum. RECOMMENDATION: 1. Advance diet. 2. Okay for discharge from a GI perspective. The patient's hemoglobin is stable today. The patient likely had a self-limited diverticular bleed, which is now resolved. GI will sign off. Please call back anytime with questions or concerns. Job ID: [id number]
--- NOTE | 2018-10-07 13:37 | DIS ---
DATE OF ADMISSION: 10/05/2018 DATE OF DISCHARGE: 10/07/2018 PRIMARY CARE PHYSICIAN: Dr. Hollingsworth of [facility] in [place]. DISCHARGE DIAGNOSES: 1. Rectal bleeding. 2. Suspected diverticular bleed. 3. Acute blood loss anemia. 4. Hypertension. 5. BPH. 6. Internal hemorrhoids. CONSULTS: GI. PROCEDURE PERFORMED: Colonoscopy. HOSPITAL COURSE: An 83-year-old male patient with history of hypertension, admitted with acute onset of rectal bleeding. The patient reportedly had three episodes on the morning prior to presentation. However, since presentation to the hospital, he has not had a bowel movement. This was associated with mild drop in hemoglobin from above 12 to 11. There was no dizziness or hemodynamic instability. GI consult was obtained, and the patient subsequently had colonoscopy, which showed diverticulosis and small internal hemorrhoids, but without acute bleeding or evidence of bleeding. Hemoglobin remained stable, and the patient was subsequently discharged. PHYSICAL EXAMINATION: VITAL SIGNS: Temperature 98.0, pulse 90, respiratory rate 18, SpO2 of 95% on room air, blood pressure 165/86. GENERAL: Healthy-looking elderly male, in no distress. Afebrile. Anicteric. Acyanotic. HEENT: Normocephalic, atraumatic. Oral mucosa is moist. CARDIOVASCULAR: Regular rhythm and rate with normal. heart sounds 1 and 2. RESPIRATORY: Good air entry bilaterally with no obvious crackle or rhonchi or use of accessory muscles. GI: Obese, soft, nontender, nondistended with normal bowel sounds. EXTREMITIES: Grossly normal looking atraumatic with no edema. NEUROLOGIC: Conscious and alert, oriented x3 with appropriate mental status. DISCHARGE DISPOSITION: Home. CONDITION AT DISCHARGE: Improved. DISCHARGE MEDICATIONS: 1. Diazepam 5 mg q.8 p.r.n. 2. Lisinopril 40 mg p.o. daily. 3. Metformin 1000 mg p.o. b.i.d. with meals. 4. Simvastatin 20 mg p.o. daily at bedtime. 5. Tramadol 50 mg p.o. b.i.d. 6. Terazosin 10 mg p.o. daily. 7. Aspirin 81 mg p.o. daily. Job ID: [id number]
[2018-10-07] MEDS ORDERED: PROPOFOL 200 MG/20 ML VIAL ONE (13:46)
== END 2018-10-07 13:45 | disposition home or self-care (01) ==
LOC: ERS 10:58 → 2SW 15:12
PROVIDERS: ADMIT Internal Medicine Nephrology; ATTEND Internal Medicine Nephrology
PROC: 0DJD8ZZ Inspection of Lower Intestinal Tract, Via Natural or Artificial Opening Endoscopic (ICD-10-PCS; principal; 2018-10-05)
DX: K64.8 Other hemorrhoids (principal); K57.30 Diverticulosis of large intestine without perforation or abscess without bleeding; D62 Acute posthemorrhagic anemia; I10 Essential (primary) hypertension; N40.0 Benign prostatic hyperplasia without lower urinary tract symptoms; E11.9 Type 2 diabetes mellitus without complications; I25.10 Atherosclerotic heart disease of native coronary artery without angina pectoris; M25.512 Pain in left shoulder; Z79.4 Long term (current) use of insulin; Z79.899 Other long term (current) drug therapy; Z95.2 Presence of prosthetic heart valve
CPT/HCPCS: 45378; 73030 ×2; 74177; 80048; 80053; 82274; 82962 ×3; 85014; 85018; 85025 ×2; 86850; 86900; 86901; 87086; 96365; 96366; 96375; 96376; 99285; G0378 ×2; 36415; 36416; 81003; 81015; C9113; J0360; J2704; J3490; Q9966